=== PATIENT | male | born 1935 | race Caucasian/White ===

== ENCOUNTER → 2016-07-31 | Outpatient (CLI) | payer MEDICARE ==
[2016-07-31 13:58] LABS: BASO % 0.3 % (0.0-1.0); EOS # 0.1 K/mm3 (0.0-0.50); EOS % 1.7 % (0.0-3.0); LARGE UNSTAINED CELL # 0.2 K/mm3 (0.0-0.4); LARGE UNSTAINED CELL % 2.5 % (0.0-4.0); LYMPH # 1.4 K/mm3 (1.5-4.5); LYMPH % 21.2 % (24.0-44.0); MEAN CORPUSCULAR HEMOGLOBIN 31.6 pg (27.0-33.0); MEAN CORPUSCULAR HGB CONC 33.4 g/dl (32.0-36.5); MEAN CORPUSCULAR VOLUME 94.6 fl (80.0-96.0); MONO # 0.4 K/mm3 (0.0-0.8); MONO % 5.4 % (0.0-5.0); NEUTROPHILS # 4.7 K/mm3 (1.8-7.7); PLATELET COUNT, AUTOMATED 228 k/mm3 (150-450); RED CELL DISTRIBUTION WIDTH 12.5 % (11.5-14.5); WHITE BLOOD COUNT 6.7 K/mm3 (4.0-10.0)
[2016-07-31 14:14] LABS: ALT/SGPT 23 U/L (12-78); CREATININE FOR GFR 0.99 MG/DL (0.70-1.30); GLOMERULAR FILTRATION RATE > 60.0 (>35)
[2016-07-31 14:58] LABS: ERYTHROCYTE SEDIMENTATION RATE 35 mm/hr (0-20)
== END ==
LOC: M SMT 08:23
PROVIDERS: ATTEND Internal Medicine Rheumatology
DX: M35.9 Systemic involvement of connective tissue, unspecified (principal); Z79.899 Other long term (current) drug therapy; E55.9 Vitamin D deficiency, unspecified

== ENCOUNTER → 2016-10-31 | Outpatient (CLI) | payer MEDICARE ==
[~2016-10-31] MED LIST: LIDOCAINE 1% MDV 20ML VIAL As Ordered ONE; TRIAMCINOLONE ACETONIDE SUSP 40 MG/ML VIAL (J3301) As Ordered ONE
--- NOTE | 2016-10-31 16:56 | REP ---
ULTRASOUND GUIDED LEFT TROCHANTERIC BURSA INJECTION: The procedure was performed under the direct supervision of Dr. Mccray. The benefit and risks including but not limited to pain, infection, bleeding, and anaphylaxis were explained to the patient and informed consent was obtained. The left trochanteric bursa was localized using ultrasound guidance. The skin was prepped and draped in a sterile fashion. 1% Lidocaine was used as a local anesthetic. Using ultrasound guidance a 22-gauge spinal needle was inserted and then advanced into the bursa. 4 mL of a solution containing 2 mL of 1% lidocaine and 2 mL of Kenalog 40 mg was injected. The needle was then removed. The patient tolerated the procedure well and there were no immediate complications. Reviewed by WILLIAN Cazares 10/31/2016 05:11 PEdited and Signed by Juan Mccray MD 11/01/2016 12:56 P
== END ==
LOC: M RADPRO 11:52
PROVIDERS: ATTEND Physical Medicine & Rehabilitation
DX: M70.62 Trochanteric bursitis, left hip (principal); Z88.2 Allergy status to sulfonamides; Z88.8 Allergy status to other drugs, medicaments and biological substances
CPT/HCPCS: 20610; J3301

== ENCOUNTER → 2016-11-09 | Outpatient (REF) | payer MEDICARE ==
[2016-11-09 18:27] LABS: ANION GAP 7 MEQ/L (8-16); BLOOD UREA NITROGEN 30 MG/DL (7-18); CARBON DIOXIDE LEVEL 31 MEQ/L (21-32); CHLORIDE LEVEL 102 MEQ/L (98-107); CREATININE FOR GFR 0.94 MG/DL (0.70-1.30); GLOMERULAR FILTRATION RATE > 60.0 (>35); GLUCOSE, FASTING 103 MG/DL (83-110); POTASSIUM SERUM 4.1 MEQ/L (3.5-5.1); SODIUM LEVEL 140 MEQ/L (136-145)
[2016-11-09 18:29] LABS: BASO % 0.2 % (0.0-1.0); EOS # 0.1 K/mm3 (0.0-0.50); EOS % 0.7 % (0.0-3.0); LARGE UNSTAINED CELL # 0.2 K/mm3 (0.0-0.4); LARGE UNSTAINED CELL % 1.6 % (0.0-4.0); LYMPH # 2.1 K/mm3 (1.5-4.5); LYMPH % 19.6 % (24.0-44.0); MEAN CORPUSCULAR HEMOGLOBIN 30.3 pg (27.0-33.0); MEAN CORPUSCULAR HGB CONC 32.2 g/dl (32.0-36.5); MEAN CORPUSCULAR VOLUME 94.1 fl (80.0-96.0); MONO # 0.6 K/mm3 (0.0-0.8); MONO % 5.7 % (0.0-5.0); NEUTROPHILS # 7.1 K/mm3 (1.8-7.7); NEUTROPHILS % 72.1 % (36.0-66.0); PLATELET COUNT, AUTOMATED 230 k/mm3 (150-450); RED CELL DISTRIBUTION WIDTH 13.2 % (11.5-14.5); WHITE BLOOD COUNT 9.8 K/mm3 (4.0-10.0)
== END ==
LOC: M SFHCPLAZ 15:36
PROVIDERS: ATTEND Family Medicine
DX: R23.3 Spontaneous ecchymoses (principal); R60.0 Localized edema
CPT/HCPCS: 36415; 80048; 85025; G0463

== ENCOUNTER → 2016-12-06 | Outpatient (REF) | payer MEDICARE | LOC: M SFHCPLAZ 08:25 | PROVIDERS: ATTEND Dermatology | DX: D23.5 Other benign neoplasm of skin of trunk (principal); C44.622 Squamous cell carcinoma of skin of right upper limb, including shoulder ==

== ENCOUNTER → 2016-12-13 | Outpatient (CLI) | payer MEDICARE ==
[2016-12-13 19:54] LABS: BASO % 0.5 % (0.0-1.0); EOS # 0.1 K/mm3 (0.0-0.50); EOS % 0.9 % (0.0-3.0); LARGE UNSTAINED CELL # 0.1 K/mm3 (0.0-0.4); LARGE UNSTAINED CELL % 1.5 % (0.0-4.0); LYMPH # 1.5 K/mm3 (1.5-4.5); LYMPH % 19.8 % (24.0-44.0); MEAN CORPUSCULAR HEMOGLOBIN 32.2 pg (27.0-33.0); MEAN CORPUSCULAR HGB CONC 34.2 g/dl (32.0-36.5); MEAN CORPUSCULAR VOLUME 94.1 fl (80.0-96.0); MONO # 0.4 K/mm3 (0.0-0.8); MONO % 5.3 % (0.0-5.0); NEUTROPHILS # 5.4 K/mm3 (1.8-7.7); PLATELET COUNT, AUTOMATED 267 k/mm3 (150-450); RED CELL DISTRIBUTION WIDTH 13.3 % (11.5-14.5); WHITE BLOOD COUNT 7.5 K/mm3 (4.0-10.0)
[2016-12-13 20:20] LABS: ALBUMIN 3.6 GM/DL (3.2-5.2); ALBUMIN/GLOBULIN RATIO 1.09 (1.00-1.93); ALKALINE PHOSPHATASE 83 U/L (45-117); ALT/SGPT 23 U/L (12-78); ANION GAP 5 MEQ/L (8-16); AST/SGOT 19 U/L (15-37); BILIRUBIN,TOTAL 0.4 MG/DL (0.2-1.0); BLOOD UREA NITROGEN 26 MG/DL (7-18); CALCIUM LEVEL 9.1 MG/DL (8.8-10.2); CARBON DIOXIDE LEVEL 33 MEQ/L (21-32); CHLORIDE LEVEL 104 MEQ/L (98-107); CREATININE FOR GFR 1.16 MG/DL (0.70-1.30); GLOMERULAR FILTRATION RATE > 60.0 (>35); GLUCOSE, FASTING 108 MG/DL (83-110); POTASSIUM SERUM 4.7 MEQ/L (3.5-5.1); SODIUM LEVEL 142 MEQ/L (136-145); TOTAL PROTEIN 6.9 GM/DL (6.4-8.2)
[2016-12-13 21:15] LABS: ERYTHROCYTE SEDIMENTATION RATE 41 mm/hr (0-20)
== END ==
LOC: M SMT 13:17
PROVIDERS: ATTEND Internal Medicine Rheumatology
DX: M35.9 Systemic involvement of connective tissue, unspecified (principal); G72.9 Myopathy, unspecified

== ENCOUNTER → 2017-01-23 | Outpatient (REF) | payer MEDICARE ==
[~2017-01-23] MED LIST changes: +CELE1CAP9 PO; +CHLO50TA PO; +FINA5TAB2 PO; +HYDR200T3 PO; -LIDOCAINE 1% MDV 20ML VIAL As Ordered ONE; +METF500T13 PO; +MONT10TA2 PO; +POTA540T PO; -TRIAMCINOLONE ACETONIDE SUSP 40 MG/ML VIAL (J3301) As Ordered ONE
[2017-01-23 11:50] LABS: ANION GAP 9 MEQ/L (8-16); BLOOD UREA NITROGEN 28 MG/DL (7-18); CALCIUM LEVEL 9.3 MG/DL (8.8-10.2); CARBON DIOXIDE LEVEL 29 MEQ/L (21-32); CHLORIDE LEVEL 102 MEQ/L (98-107); CREATININE FOR GFR 0.95 MG/DL (0.70-1.30); GLOMERULAR FILTRATION RATE > 60.0 (>35); GLUCOSE, FASTING 127 MG/DL (83-110); POTASSIUM SERUM 3.4 MEQ/L (3.5-5.1); SODIUM LEVEL 140 MEQ/L (136-145)
[2017-01-23 12:40] LABS: VITAMIN B12 LEVEL > 2000 PG/ML (247-911)
== END ==
LOC: M SFHCPLAZ 09:29
PROVIDERS: ATTEND Family Medicine
DX: R26.89 Other abnormalities of gait and mobility (principal); R60.0 Localized edema; B37.2 Candidiasis of skin and nail; Z79.899 Other long term (current) drug therapy; I10 Essential (primary) hypertension; Z86.69 Personal history of other diseases of the nervous system and sense organs; Z87.430 Personal history of prostatic dysplasia
CPT/HCPCS: 36415; 80048; 82306; 82607; 83036; 83880; G0463

== ENCOUNTER 2017-03-05 07:33 | Emergency (ER) | payer MEDICARE ==
[~2017-03-05] VITALS: Ht 188 cm; Wt 124.2 kg
[2017-03-05] MEDS ORDERED: METF500T13 PO (07:47)
[2017-03-05] MEDS ORDERED: POTA540T PO (07:47)
[2017-03-05] MEDS ORDERED: HYDR200T3 PO (07:47)
[2017-03-05] MEDS ORDERED: FINA5TAB2 PO (07:47)
[2017-03-05] MEDS ORDERED: MONT10TA2 PO (07:47)
[2017-03-05] MEDS ORDERED: CELE1CAP9 PO (07:47)
[2017-03-05] MEDS ORDERED: CHLO50TA PO (07:47)
[2017-03-05 08:43] LABS: BASO % 0.5 % (0.0-1.0); EOS # 0.1 K/mm3 (0.0-0.50); EOS % 1.7 % (0.0-3.0); LARGE UNSTAINED CELL # 0.1 K/mm3 (0.0-0.4); LARGE UNSTAINED CELL % 1.5 % (0.0-4.0); MEAN CORPUSCULAR HEMOGLOBIN 31.2 pg (27.0-33.0); MEAN CORPUSCULAR VOLUME 94.5 fl (80.0-96.0); MONO # 0.4 K/mm3 (0.0-0.8); MONO % 5.6 % (0.0-5.0); NEUTROPHILS # 4.6 K/mm3 (1.8-7.7); NEUTROPHILS % 64.7 % (36.0-66.0); PLATELET COUNT, AUTOMATED 243 k/mm3 (150-450); RED CELL DISTRIBUTION WIDTH 12.9 % (11.5-14.5); WHITE BLOOD COUNT 7.1 K/mm3 (4.0-10.0)
[2017-03-05] MEDS ORDERED: MORPHINE 4 MG/ML 1ML SYRINGE IV PRN (08:45)
[2017-03-05] MEDS ORDERED: ONDANSETRON 4MG/2ML VIAL (J2405) IV ONE ×2 (08:45→11:45)
[2017-03-05] MEDS: NS 1,000 ML IV SCH ×2 (08:49→18:32)
[2017-03-05 08:51] LABS: INR 0.89
[2017-03-05 08:52] LABS: ALBUMIN 3.5 GM/DL (3.2-5.2); ALBUMIN/GLOBULIN RATIO 0.85 (1.00-1.93); ALKALINE PHOSPHATASE 88 U/L (45-117); ALT/SGPT 21 U/L (12-78); ANION GAP 8 MEQ/L (8-16); AST/SGOT 16 U/L (15-37); BILIRUBIN,DIRECT < 0.1 MG/DL (0.0-0.2); BILIRUBIN,TOTAL 0.4 MG/DL (0.2-1.0); BLOOD UREA NITROGEN 29 MG/DL (7-18); CALCIUM LEVEL 9.2 MG/DL (8.8-10.2); CARBON DIOXIDE LEVEL 28 MEQ/L (21-32); CHLORIDE LEVEL 103 MEQ/L (98-107); CREATININE FOR GFR 0.93 MG/DL (0.70-1.30); GLOMERULAR FILTRATION RATE > 60.0 (>35); GLUCOSE, FASTING 137 MG/DL (83-110); POTASSIUM SERUM 3.8 MEQ/L (3.5-5.1); SODIUM LEVEL 139 MEQ/L (136-145); TOTAL PROTEIN 7.6 GM/DL (6.4-8.2)
--- NOTE | 2017-03-05 10:11 | REP ---
ABDOMINAL SERIES: Supine erect views of the abdomen demonstrate no evidence of free intraperitoneal air and no compelling evidence for small bowel obstruction. No significantly dilated small bowel loops are seen. Multiple metallic clips are seen in the pelvis. Vascular calcifications are seen. There are degenerative changes of the spine. An accompanying view of the chest demonstrates no acute infiltrate. There is calcification of the thoracic aorta. IMPRESSION: No free air or obstruction. No infiltrate seen in either lung. Unreviewed
[2017-03-05] MEDS ORDERED: GASTROGRAFIN SOLUTION 30ML PO ONE (11:05)
[2017-03-05] MEDS ORDERED: GASTROGRAFIN SOLUTION 30ML (Q9963) PO ONE (11:35)
[2017-03-05] MEDS ORDERED: ISOVUE-370 76% 100ML VIAL (Q9967) As Ordered ONE (12:15)
[2017-03-05] MEDS ORDERED: LORazepam 2 MG/ML VIAL (J2060) IV STA ×2 (14:14→16:47)
--- NOTE | 2017-03-05 16:08 | ECGEPIP ---
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
--- NOTE | 2017-03-05 16:23 | REP ---
CT ABDOMEN AND PELVIS WITH ORAL AND IV CONTRAST: TECHNIQUE: Axial contrast enhanced images from the lung bases to the pubic symphysis using 100 mL Isovue 370 intravenous contrast material with multiplanar reformations. No comparison studies. Visualized lung bases show bibasilar fibro atelectatic changes. There is a calcified granuloma in the left lower lobe. The liver and gallbladder appear unremarkable. Spleen and adrenals are unremarkable. In the body of the pancreas there is a focal area of enhancement approximately 2 cm in diameter. The pancreatic duct more distally in the pancreatic tail is moderately dilated diffusely. Findings I suspect represent a mass in the body of the pancreas with subsequent moderate dilatation of more peripheral pancreatic duct. There is no hydronephrosis or renal mass identified. There are mild to moderate atherosclerotic calcifications of the abdominal aorta without aneurysm. There is no adenopathy. There is no free air or free fluid. There is no bowel wall thickening. There is no evidence of appendicitis. Multiple sigmoid diverticula are present without acute diverticulitis. Abdominal wall mesh is seen. No pelvic mass is seen. Urinary bladder appears unremarkable. There are degenerative changes of the spine. There is fluid seen along the greater trochanter of the proximal left femur suggesting left sided greater trochanteric bursitis. IMPRESSION: No evidence of appendicitis or diverticulitis. No free air or free fluid. I suspect a 2 cm enhancing mass in the body of the pancreas with subsequent moderate dilatation of the more peripheral pancreatic duct in the tail of the pancreas. Signed by Juan Mccray MD 03/05/2017 05:10 P
--- NOTE | 2017-03-05 21:30 | REPUSA ---
HISTORY: Pancreatic mass. Epigastric pain. TECHNIQUE: MR abdomen without and with gadolinium. 20 mL ProHance administered IV. COMPARISON: CT abdomen report dated March 05, 2017. MR ABDOMEN WITHOUT AND WITH CONTRAST: Liver: No intrahepatic ductal dilation or masses. Gallbladder: Nondistended, and without visible stones. Pancreas: Again seen is moderate dilation of the pancreatic duct in the pancreatic tail measuring up to 6 mm diameter. However, a discrete lesion is not seen within the pancreatic parenchyma. Spleen: Normal size. Adrenals: Normal size, without masses. Right kidney: No hydronephrosis or masses. Left kidney: No hydronephrosis or masses. 11 mm upper pole cyst. Aorta: Normal caliber. Peritoneum: No free fluid. IMPRESSION: Dilation of the pancreatic duct within the pancreatic tail, without discrete pancreatic m ass. Obstruction may be caused by a nonenhancing pancreatic cyst or small intraductal lesion or stone , beneath the resolution of MRI.
[2017-03-05 21:56] VITALS: BP 116/71
--- NOTE | 2017-03-06 09:00 | ED PDOC ---
Post-Departure Follow-Up radiology rpeort faxed to Domonique Ramos MD Mar 06, 2017 08:59
== END 2017-03-05 22:16 | disposition home or self-care (01) ==
LOC: M ED 07:33
DX: R10.9 Unspecified abdominal pain (principal); I10 Essential (primary) hypertension; N40.0 Benign prostatic hyperplasia without lower urinary tract symptoms
CPT/HCPCS: 74022; 74177; 74183; 80048; 80076; 82550; 82553; 83605; 83690; 84484; 85025; 85610; 85730; 93005; 93041; 96374; 96375; 96376; 99285; A9576; J2060; J2405; Q9963; Q9967

== ENCOUNTER → 2017-03-15 | Outpatient (REF) | payer MEDICARE ==
[2017-03-15 13:33] LABS: ANION GAP 12 MEQ/L (8-16); BLOOD UREA NITROGEN 32 MG/DL (7-18); CALCIUM LEVEL 9.3 MG/DL (8.8-10.2); CARBON DIOXIDE LEVEL 26 MEQ/L (21-32); CHLORIDE LEVEL 104 MEQ/L (98-107); CREATININE FOR GFR 0.98 MG/DL (0.70-1.30); GLOMERULAR FILTRATION RATE > 60.0 (>35); GLUCOSE, FASTING 107 MG/DL (83-110); POTASSIUM SERUM 3.7 MEQ/L (3.5-5.1); SODIUM LEVEL 142 MEQ/L (136-145)
== END ==
LOC: M SFHCPLAZ 11:36
PROVIDERS: ATTEND Nurse Practitioner Family
DX: R60.0 Localized edema (principal)

== ENCOUNTER → 2017-04-12 | Outpatient (CLI) | payer MEDICARE ==
--- NOTE | 2017-04-12 10:33 | REP ---
MRI LEFT HIP: TECHNIQUE: Coronal T1, STIR through the pelvis, T2 fat sat, left hip all three planes, axial oblique proton density fat sat left hip. COMPARISON: 02/22/2016 [facility]. The visualized osseous structures demonstrate normal marrow signal. There is no bone marrow edema or occult fracture. There is no evidence of avascular necrosis. Mild arthritic changes are seen at the hip joints bilaterally. There is no definite tear of the left hip labrum. There is no paralabral cyst. No joint effusion is seen. Moderate fluid is seen along the greater trochanter of the proximal left femur compatible with a moderate degree of left greater trochanteric bursitis. This has mildly increased since the prior study. IMPRESSION: Mild worsening of left greater trochanteric bursitis when compared to the prior study. Signed by Juan Mccray MD 04/12/2017 02:22 P
== END ==
LOC: M PLARAD 07:40
PROVIDERS: ATTEND Physical Medicine & Rehabilitation
DX: M16.12 Unilateral primary osteoarthritis, left hip (principal)

== ENCOUNTER → 2017-05-01 | Outpatient (CLI) | payer MEDICARE ==
[~2017-05-01] MED LIST changes: +LIDOCAINE 1% MDV 20ML VIAL As Ordered ONE; +TRIAMCINOLONE ACETONIDE SUSP 40 MG/ML VIAL (J3301) As Ordered ONE
--- NOTE | 2017-05-01 16:35 | REP ---
ULTRASOUND GUIDED LEFT TROCHANTERIC BURSA INJECTION: The procedure was performed under the direct supervision of Dr. Bruno. The risks and benefits of the procedure were explained to the patient and informed consent was obtained. The left trochanteric bursa was localized using ultrasound guidance. The skin was prepped and draped in a sterile fashion. 1% lidocaine was used as a local anesthetic. Using ultrasound guidance an 18-gauge needle was inserted and advanced into the bursa. Four mL of a solution containing 2 mL of 1% lidocaine and 2 mL of Kenalog 40 mg was injected. The needle was then removed. The patient tolerated the procedure well and there were no immediate complications. After the appropriate amount of monitored convalescence the patient was discharged from the department. Reviewed by WILLIAN Cazares 05/01/2017 04:41 PEdited and Signed by Papo Bruno MD 05/01/2017 05:00 P
== END ==
LOC: M RADPRO 10:21
PROVIDERS: ATTEND Physical Medicine & Rehabilitation
DX: M70.62 Trochanteric bursitis, left hip (principal); I10 Essential (primary) hypertension; K21.9 Gastro-esophageal reflux disease without esophagitis; G56.00 Carpal tunnel syndrome, unspecified upper limb; Z85.828 Personal history of other malignant neoplasm of skin; Z79.84 Long term (current) use of oral hypoglycemic drugs; Z79.899 Other long term (current) drug therapy
CPT/HCPCS: 20610; J3301

== ENCOUNTER → 2017-05-30 | Outpatient (CLI) | payer MEDICARE ==
[~2017-05-30] MED LIST changes: -LIDOCAINE 1% MDV 20ML VIAL As Ordered ONE; -TRIAMCINOLONE ACETONIDE SUSP 40 MG/ML VIAL (J3301) As Ordered ONE
[2017-05-30 13:29] LABS: BASO % 0.4 % (0.0-1.0); EOS # 0.1 10^3/uL (0.0-0.50); EOS % 1.2 % (0.0-3.0); IMMATURE GRANULOCYTE % 0.3 % (0-0); LYMPH # 1.6 10^3/uL (1.5-4.5); LYMPH % 21.8 % (24.0-44.0); MEAN CORPUSCULAR HEMOGLOBIN 30.4 pg (27.0-33.0); MEAN CORPUSCULAR HGB CONC 32.6 g/dl (32.0-36.5); MEAN CORPUSCULAR VOLUME 93.1 fl (80.0-96.0); MONO # 0.5 10^3/uL (0.0-0.8); MONO % 7.4 % (0.0-5.0); NEUTROPHILS % 68.9 % (36.0-66.0); PLATELET COUNT, AUTOMATED 260 10^3/uL (150-450); RED CELL DISTRIBUTION WIDTH 13.2 % (11.5-14.5); WHITE BLOOD COUNT 7.3 10^3/uL (4.0-10.0)
[2017-05-30 14:02] LABS: ALBUMIN 3.5 GM/DL (3.2-5.2); ALKALINE PHOSPHATASE 101 U/L (45-117); ALT/SGPT 24 U/L (12-78); ANION GAP 7 MEQ/L (8-16); AST/SGOT 13 U/L (7-37); BILIRUBIN,TOTAL 0.3 MG/DL (0.2-1.0); BLOOD UREA NITROGEN 16 MG/DL (7-18); CALCIUM LEVEL 9.3 MG/DL (8.8-10.2); CARBON DIOXIDE LEVEL 32 MEQ/L (21-32); CHLORIDE LEVEL 101 MEQ/L (98-107); GLOMERULAR FILTRATION RATE > 60.0 (>35); GLUCOSE, FASTING 95 MG/DL (83-110); IMMUNOGLOBULIN G 970 MG/DL (681-1648); POTASSIUM SERUM 3.9 MEQ/L (3.5-5.1); SODIUM LEVEL 140 MEQ/L (136-145)
[2017-05-30 14:32] LABS: ERYTHROCYTE SEDIMENTATION RATE 43 mm/hr (0-20)
== END ==
LOC: M SMT 09:35
PROVIDERS: ATTEND Internal Medicine Rheumatology
DX: M35.9 Systemic involvement of connective tissue, unspecified (principal); E55.9 Vitamin D deficiency, unspecified; Z79.899 Other long term (current) drug therapy

== ENCOUNTER → 2017-07-24 | Outpatient (REF) | payer MEDICARE | LOC: M LAB REF 11:54 | DX: L82.1 Other seborrheic keratosis (principal) | CPT/HCPCS: 88305 ==

== ENCOUNTER → 2017-08-07 | Outpatient (REF) | payer MEDICARE ==
[2017-08-07 12:20] LABS: PROLACTIN 6.9 NG/ML (2.1-17.7)
[2017-08-07 12:20] LABS: TESTOSTERONE 426 NG/DL (241-827)
[2017-08-07 12:25] LABS: PSA SCREENING 0.94 NG/ML (< 4.0)
[2017-08-10 00:07] LABS: ESTROGENS TOTAL 164 pg/mL (40-115)
== END ==
LOC: M SFHCPLAZ 09:56
DX: N62 Hypertrophy of breast (principal); R39.198 Other difficulties with micturition; M75.41 Impingement syndrome of right shoulder; G56.01 Carpal tunnel syndrome, right upper limb; M19.90 Unspecified osteoarthritis, unspecified site
CPT/HCPCS: 84146

== ENCOUNTER → 2017-09-23 | Outpatient (CLI) | payer MEDICARE ==
[2017-09-24 09:42] LABS: ALPHA FETOPROTEIN TUMOR QUANT 3.8 NG/ML (<8.1)
[2017-09-24 10:14] LABS: HCG SERUM TUMOR MARKER QUANT < 1 mIU/mL (0-3)
== END ==
LOC: M SMT 11:05
DX: N62 Hypertrophy of breast (principal)
CPT/HCPCS: 84702

== ENCOUNTER → 2017-10-16 | Outpatient (REF) | payer MEDICARE ==
[2017-10-16 12:26] LABS: NT-PRO BNP 428 PG/ML (<450)
== END ==
LOC: M SFHCPLAZ 09:42
DX: I95.1 Orthostatic hypotension (principal)
CPT/HCPCS: 36415

== ENCOUNTER → 2017-10-19 | Outpatient (CLI) | payer MEDICARE ==
[2017-10-19 08:29] LABS: APPEARANCE, URINE MANUAL CLEAR (CLEAR); COLOR, URINE MANUAL YELLOW (YELLOW)
[2017-10-19 08:30] LABS: BILIRUBIN, URINE MANUAL NEGATIVE (NEGATIVE); BLOOD URINE MANUAL POSITIVE (NEGATIVE); GLUCOSE, URINE (UA) MANUAL NEGATIVE (NEGATIVE); KETONE, URINE MANUAL NEGATIVE (NEGATIVE); LEUKOCYTE ESTERASE, URINE MAN NEGATIVE (NEGATIVE); MICROSCOPIC INDICATED? MAN YES (NO); NITRITE, URINE MANUAL NEGATIVE (NEGATIVE); PROTEIN, URINE MANUAL NEGATIVE (NEGATIVE); SPECIFIC GRAVITY,URINE MANUAL 1.015 (1.002-1.035); UROBILINOGEN, URINE MANUAL NORMAL (NORMAL)
[2017-10-19 08:37] LABS: BACTERIA, URINE NONE SEEN; HYALINE CAST, URINE NONE SEEN /lpf (0-1); MICROSCOPIC EXAM PERFORMED; SQUAMOUS EPITHELIAL CELL URINE SMALL AMOUNT /hpf (SMALL AMT); WBC, URINE 0-1 /hpf (0-3)
[2017-10-19 09:23] LABS: CHOLESTEROL LEVEL 165 MG/DL (<200); HDL CHOLESTEROL 73 MG/DL (>40); LDL CHOLESTEROL 66.2 MG/DL (<100); NON-HDL-C 92 MG/DL; TRIGLYCERIDES LEVEL 129 MG/DL (<150)
== END ==
LOC: M LAB 08:09
DX: I48.2 Chronic atrial fibrillation (principal); R35.0 Frequency of micturition; R94.31 Abnormal electrocardiogram [ECG] [EKG]
CPT/HCPCS: 84443

== ENCOUNTER 2017-10-28 10:07 | Day surgery (SDC) | payer MEDICARE ==
[2017-10-28] MEDS: ISOVUE-300 61% 50ML VIAL (Q9967) As Ordered (09:24)
[2017-10-28] MEDS: AMIODARONE HCL 360 MG/200 ML PREMIXED BAG (NEXTERONE) As Ordered (09:24)
[2017-10-28 10:58] LABS: BEDSIDE GLUCOSE 112 MG/DL (83-110)
[2017-10-28] MEDS: LR 1,000 ML IV ×2 (11:29→16:32)
[2017-10-28] MEDS ORDERED: PROPOFOL 200 MG/20 ML VIAL As Ordered ×4 (11:36→13:09)
[2017-10-28] MEDS: LIDOCAINE 1% SDV INJ 30 ML VIAL As Ordered (12:40)
[2017-10-28] MEDS: BACITRACIN PWD 50,000 UNITS VIAL As Ordered (14:01)
[2017-10-28 14:28] LABS: BEDSIDE GLUCOSE 98 MG/DL (83-110)
[2017-10-28] MEDS ORDERED: ACETAMINOPHEN TAB 650MG DOSE (2X325MG) PO (14:30)
[2017-10-28] MEDS: LISINOPRIL 5 MG TAB PO (16:30)
[2017-10-28] MEDS: TAMSULOSIN 0.4 MG CAP PO (16:30)
[2017-10-28] MEDS: CEFAZOLIN SOD 1 GM in APPROPRIATE DILUENT 1 EA IV (20:41)
[2017-10-29] MEDS ORDERED: SLF 3 ML SYR IV (02:15)
[2017-10-29] MEDS: CEFAZOLIN SOD 1 GM in APPROPRIATE DILUENT 1 EA IV ×2 (04:10→11:54)
[2017-10-29 05:25] LABS: HEMATOCRIT 38.8 % (42.0-52.0); HEMOGLOBIN 12.9 g/dl (13.5-17.5); MEAN CORPUSCULAR HEMOGLOBIN 30.1 pg (27.0-33.0); MEAN CORPUSCULAR HGB CONC 33.2 g/dl (32.0-36.5); MEAN CORPUSCULAR VOLUME 90.4 fl (80.0-96.0); PLATELET COUNT, AUTOMATED 169 10^3/uL (150-450); RED BLOOD COUNT 4.29 10^6/uL (4.30-6.10); RED CELL DISTRIBUTION WIDTH 13.2 % (11.5-14.5)
[2017-10-29] MEDS: SLF 3 ML SYR IV ×2 (05:36→11:57)
[2017-10-29 05:42] LABS: ALBUMIN 3.1 GM/DL (3.2-5.2); ANION GAP 6 MEQ/L (8-16); BLOOD UREA NITROGEN 26 MG/DL (7-18); CALCIUM LEVEL 8.9 MG/DL (8.8-10.2); CARBON DIOXIDE LEVEL 26 MEQ/L (21-32); CHLORIDE LEVEL 108 MEQ/L (98-107); CREATININE FOR GFR 0.98 MG/DL (0.70-1.30); GLOMERULAR FILTRATION RATE > 60.0 (>35); GLUCOSE, FASTING 111 MG/DL (70-100); PHOSPHORUS LEVEL 3.2 MG/DL (2.5-4.9); POTASSIUM SERUM 4.1 MEQ/L (3.5-5.1); SODIUM LEVEL 140 MEQ/L (136-145)
[2017-10-29] MEDS: CHLORTHALIDONE 12.5MG PER 1/2 TABLET PO (09:24)
[2017-10-29] MEDS: LISINOPRIL 5 MG TAB PO (09:24)
[2017-10-29] MEDS: TAMSULOSIN 0.4 MG CAP PO (09:25)
[2017-10-29] MEDS: AMIODARONE 200 MG TAB (PACERONE) PO (09:25)
[2017-10-29] MEDS: metFORMIN (GLUCOPHAGE) 500 MG TAB PO (09:26)
[2017-10-29] MEDS: NASACORT (09:26)
== END 2017-10-29 13:18 | disposition home or self-care (01) ==
LOC: M SDC 10:07 → M PCU 15:04
DX: I44.1 Atrioventricular block, second degree (principal); I45.2 Bifascicular block; I48.92 Unspecified atrial flutter; I45.10 Unspecified right bundle-branch block; I11.9 Hypertensive heart disease without heart failure; E11.9 Type 2 diabetes mellitus without complications; Z79.02 Long term (current) use of antithrombotics/antiplatelets; Z79.899 Other long term (current) drug therapy; Z88.8 Allergy status to other drugs, medicaments and biological substances; Z88.2 Allergy status to sulfonamides
CPT/HCPCS: 33208

== ENCOUNTER → 2017-12-26 | Outpatient (REF) | payer MEDICARE | LOC: M SFHCPLAZ 08:59 | DX: Z13.1 Encounter for screening for diabetes mellitus (principal); M54.9 Dorsalgia, unspecified; Z13.220 Encounter for screening for lipoid disorders; Z53.8 Procedure and treatment not carried out for other reasons ==

== ENCOUNTER → 2017-12-26 | Outpatient (CLI) | payer MEDICARE ==
[2017-12-26 14:15] LABS: CHOLESTEROL LEVEL 159 MG/DL (<200); CHOLESTEROL RISK RATIO 2.409 (<5); HDL CHOLESTEROL 66 MG/DL (>40); LDL CHOLESTEROL 73.2 MG/DL (<100); NON-HDL-C 93 MG/DL; TRIGLYCERIDES LEVEL 99 MG/DL (<150)
[2017-12-26 14:18] LABS: ESTIMATED AVERAGE GLUCOSE 140 MG/DL (60-110); HEMOGLOBIN A1c 6.5 %
[2018-01-02 00:06] LABS: HLA-B27 Negative (.)
== END ==
LOC: M SMT 10:01
DX: M54.9 Dorsalgia, unspecified (principal); Z13.1 Encounter for screening for diabetes mellitus; Z13.220 Encounter for screening for lipoid disorders; I45.2 Bifascicular block; R26.89 Other abnormalities of gait and mobility; G56.01 Carpal tunnel syndrome, right upper limb; K21.9 Gastro-esophageal reflux disease without esophagitis; M19.90 Unspecified osteoarthritis, unspecified site; J30.9 Allergic rhinitis, unspecified; H91.91 Unspecified hearing loss, right ear; R26.81 Unsteadiness on feet; I48.92 Unspecified atrial flutter; M48.061 Spinal stenosis, lumbar region without neurogenic claudication; Z79.84 Long term (current) use of oral hypoglycemic drugs; Z79.899 Other long term (current) drug therapy; Z86.008 Personal history of in-situ neoplasm of other site
CPT/HCPCS: 83036

== ENCOUNTER → 2018-03-28 | Outpatient (REF) | payer MEDICARE ==
[2018-03-28 11:37] LABS: BASO % 0.2 % (0.0-1.0); EOS % 0.7 % (0.0-3.0); HEMATOCRIT 42.8 % (42.0-52.0); HEMOGLOBIN 13.6 g/dl (13.5-17.5); IMMATURE GRANULOCYTE % 0.5 % (0-3.0); LYMPH # 1.4 10^3/uL (1.5-4.5); LYMPH % 23.4 % (24.0-44.0); MEAN CORPUSCULAR HEMOGLOBIN 29.5 pg (27.0-33.0); MEAN CORPUSCULAR HGB CONC 31.8 g/dl (32.0-36.5); MEAN CORPUSCULAR VOLUME 92.8 fl (80.0-96.0); MONO # 0.6 10^3/uL (0.0-0.8); MONO % 10.1 % (0.0-5.0); NEUTROPHILS # 3.9 10^3/uL (1.8-7.7); NEUTROPHILS % 65.1 % (36.0-66.0); PLATELET COUNT, AUTOMATED 226 10^3/uL (150-450); RED BLOOD COUNT 4.61 10^6/uL (4.30-6.10); RED CELL DISTRIBUTION WIDTH 13.9 % (11.5-14.5)
[2018-03-28 11:48] LABS: ALBUMIN 3.6 GM/DL (3.2-5.2); ALBUMIN/GLOBULIN RATIO 0.95 (1.00-1.93); ALKALINE PHOSPHATASE 105 U/L (45-117); ALT/SGPT 18 U/L (12-78); ANION GAP 10 MEQ/L (8-16); AST/SGOT 11 U/L (7-37); BILIRUBIN,TOTAL 0.3 MG/DL (0.2-1.0); BLOOD UREA NITROGEN 21 MG/DL (7-18); C REACTIVE PROTEIN QUANTITATIV 1.64 MG/DL (0.00-0.30); CALCIUM LEVEL 8.7 MG/DL (8.8-10.2); CARBON DIOXIDE LEVEL 25 MEQ/L (21-32); CHLORIDE LEVEL 107 MEQ/L (98-107); CREATININE FOR GFR 0.95 MG/DL (0.70-1.30); GLOMERULAR FILTRATION RATE > 60.0 (>35); GLUCOSE, FASTING 101 MG/DL (70-100); POTASSIUM SERUM 4.3 MEQ/L (3.5-5.1); RHEUMATOID FACTOR QUANT < 10.0 IU/ML (<15.0); SODIUM LEVEL 142 MEQ/L (136-145); TOTAL PROTEIN 7.4 GM/DL (6.4-8.2)
[2018-03-28 12:08] LABS: ERYTHROCYTE SEDIMENTATION RATE 42 mm/hr (0-20)
[2018-04-01 00:07] LABS: CYCLIC CITRULLINATED PEPTIDE 4 units (0-19)
[2018-04-01 00:07] LABS: ANA (HEP2) Negative (.); ANTI DOUBLE STRAND-DNA AB <1 IU/mL (0-9); SSA SJOGRENS A <0.2 AI (0.0-0.9); SSB SJOGRENS B <0.2 AI (0.0-0.9)
== END ==
LOC: M SFHCLERA 09:15
DX: M19.90 Unspecified osteoarthritis, unspecified site (principal); M25.512 Pain in left shoulder; M54.5 Low back pain
CPT/HCPCS: 80053

== ENCOUNTER → 2018-03-28 | Outpatient (CLI) | payer MEDICARE ==
[2018-03-28 14:23] LABS: BLOOD UREA NITROGEN 22 MG/DL (7-18)
[2018-03-28 14:23] LABS: CREATININE FOR GFR 1.18 MG/DL (0.70-1.30); GLOMERULAR FILTRATION RATE > 60.0 (>35)
== END ==
LOC: M LAB 12:51
DX: H90.3 Sensorineural hearing loss, bilateral (principal); M19.90 Unspecified osteoarthritis, unspecified site; M25.512 Pain in left shoulder; M54.5 Low back pain
CPT/HCPCS: 80053; 82565

== ENCOUNTER → 2018-04-02 | Outpatient (CLI) | payer MEDICARE | LOC: M RAD 10:02 | DX: M19.90 Unspecified osteoarthritis, unspecified site (principal); M25.512 Pain in left shoulder | CPT/HCPCS: 72100 ==

== ENCOUNTER → 2018-04-07 | Outpatient (CLI) | payer MEDICARE | LOC: M RAD 07:17 | DX: H90.3 Sensorineural hearing loss, bilateral (principal) | CPT/HCPCS: 70480 ==

== ENCOUNTER → 2018-04-25 | Outpatient (CLI) | payer MEDICARE | LOC: M SMT 10:51 | DX: I48.0 Paroxysmal atrial fibrillation (principal) | CPT/HCPCS: 71046 ==

== ENCOUNTER → 2018-04-25 | Outpatient (REF) | payer MEDICARE ==
[2018-04-25 12:16] LABS: ANION GAP 7 MEQ/L (8-16); BLOOD UREA NITROGEN 18 MG/DL (7-18); C REACTIVE PROTEIN QUANTITATIV 0.98 MG/DL (0.00-0.30); CALCIUM LEVEL 8.4 MG/DL (8.8-10.2); CARBON DIOXIDE LEVEL 30 MEQ/L (21-32); CHLORIDE LEVEL 106 MEQ/L (98-107); CREATININE FOR GFR 1.05 MG/DL (0.70-1.30); GLOMERULAR FILTRATION RATE > 60.0 (>35); GLUCOSE, FASTING 92 MG/DL (70-100); POTASSIUM SERUM 4.9 MEQ/L (3.5-5.1); SODIUM LEVEL 143 MEQ/L (136-145); URIC ACID 5.5 MG/DL (3.5-7.2)
[2018-04-25 12:45] LABS: TOTAL 25(OH) VITAMIN D 22.4 NG/ML (30.0-100.0)
== END ==
LOC: M SFHCLERA 09:36
DX: M19.90 Unspecified osteoarthritis, unspecified site (principal); Z79.899 Other long term (current) drug therapy
CPT/HCPCS: 84550

== ENCOUNTER 2018-05-01 09:55 | Emergency (ER) | payer MEDICARE ==
[2018-05-01 11:36] LABS: BASO % 0.3 % (0.0-1.0); EOS % 0.5 % (0.0-3.0); HEMATOCRIT 40.1 % (42.0-52.0); HEMOGLOBIN 12.8 g/dl (13.5-17.5); IMMATURE GRANULOCYTE % 0.3 % (0-3.0); LYMPH # 1.1 10^3/uL (1.5-4.5); LYMPH % 18.5 % (24.0-44.0); MEAN CORPUSCULAR HEMOGLOBIN 28.7 pg (27.0-33.0); MEAN CORPUSCULAR HGB CONC 31.9 g/dl (32.0-36.5); MEAN CORPUSCULAR VOLUME 89.9 fl (80.0-96.0); MONO # 0.5 10^3/uL (0.0-0.8); NEUTROPHILS # 4.2 10^3/uL (1.8-7.7); NEUTROPHILS % 72.4 % (36.0-66.0); PLATELET COUNT, AUTOMATED 208 10^3/uL (150-450); RED BLOOD COUNT 4.46 10^6/uL (4.30-6.10); RED CELL DISTRIBUTION WIDTH 14.6 % (11.5-14.5); WHITE BLOOD COUNT 5.9 10^3/uL (4.0-10.0)
[2018-05-01 11:47] LABS: INR 1.17; PROTHROMBIN TIME 15.1 SECONDS (12.1-14.4)
[2018-05-01 12:18] LABS: ALBUMIN 3.2 GM/DL (3.2-5.2); ALBUMIN/GLOBULIN RATIO 0.97 (1.00-1.93); ALKALINE PHOSPHATASE 102 U/L (45-117); ALT/SGPT 18 U/L (12-78); ANION GAP 7 MEQ/L (8-16); AST/SGOT 12 U/L (7-37); BILIRUBIN,DIRECT < 0.1 MG/DL (0.0-0.2); BILIRUBIN,TOTAL 0.3 MG/DL (0.2-1.0); BLOOD UREA NITROGEN 19 MG/DL (7-18); CALCIUM LEVEL 8.1 MG/DL (8.8-10.2); CARBON DIOXIDE LEVEL 26 MEQ/L (21-32); CHLORIDE LEVEL 109 MEQ/L (98-107); CPK CREATINE PHOSPHOKINASE 61 U/L (39-308); CREATININE FOR GFR 1.08 MG/DL (0.70-1.30); GLOMERULAR FILTRATION RATE > 60.0 (>35); GLUCOSE, FASTING 139 MG/DL (70-100); LIPASE 93 U/L (73-393); MB/CK RELATIVE INDEX 2.62 (< OR =4); POTASSIUM SERUM 3.9 MEQ/L (3.5-5.1); SODIUM LEVEL 142 MEQ/L (136-145); TOTAL PROTEIN 6.5 GM/DL (6.4-8.2); TROPONIN I < 0.02 NG/ML (< 0.10)
== END 2018-05-01 13:22 | disposition left against medical advice (07) ==
LOC: M ED 09:55
DX: R55 Syncope and collapse (principal); I10 Essential (primary) hypertension; N40.0 Benign prostatic hyperplasia without lower urinary tract symptoms; M06.4 Inflammatory polyarthropathy; Z95.0 Presence of cardiac pacemaker; Z79.01 Long term (current) use of anticoagulants; Z98.0 Intestinal bypass and anastomosis status; Z87.891 Personal history of nicotine dependence; Z88.5 Allergy status to narcotic agent; Z88.8 Allergy status to other drugs, medicaments and biological substances; Z88.1 Allergy status to other antibiotic agents; Z88.2 Allergy status to sulfonamides; Z79.899 Other long term (current) drug therapy; Z79.84 Long term (current) use of oral hypoglycemic drugs
CPT/HCPCS: 71045

== ENCOUNTER → 2018-05-08 | Outpatient (CLI) | payer MEDICARE | LOC: M SLEEP 20:00 | DX: G47.33 Obstructive sleep apnea (adult) (pediatric) (principal) | CPT/HCPCS: 95810 ==

== ENCOUNTER → 2018-05-08 | Outpatient (CLI) | payer MEDICARE | LOC: M SLEEP 19:24 | DX: G47.33 Obstructive sleep apnea (adult) (pediatric) (principal) ==

== ENCOUNTER → 2018-06-21 | Outpatient (CLI) | payer MEDICARE | LOC: M SLEEP 20:00 | DX: G47.33 Obstructive sleep apnea (adult) (pediatric) (principal) | CPT/HCPCS: 95811 ==

== ENCOUNTER → 2018-08-07 | Outpatient (REF) | payer MEDICARE ==
[~2018-08-07] MED LIST changes: +AMIO200T PO; +COLC1TAB13 PO; +ELIQ5TAB; +ELIQ5TAB PO; +FISH1000 PO; +FURO40TA2 PO; +GABA-845 PO; +KEFL500C17 PO; +OMEG100011 PO
[2018-08-07 10:46] LABS: MAU/CREAT RATIO 91.2 MCG/MG (0.0-30.0)
[2018-08-07 11:08] LABS: HEMOGLOBIN A1c 6.4 %
== END ==
LOC: M SFHCPLAZ 08:31
PROVIDERS: ATTEND Family Medicine
DX: E11.9 Type 2 diabetes mellitus without complications (principal)
CPT/HCPCS: 36415; 82043; 83036; G0463

== ENCOUNTER 2018-08-21 10:49 | Emergency (ER) | payer MEDICARE ==
[~2018-08-21] VITALS: Ht 188 cm; Wt 115.9 kg
[~2018-08-21 10:49] MED LIST changes: -FURO40TA2 PO; -KEFL500C17 PO
[2018-08-21 11:49] LABS: BASO % 0.5 % (0.0-1.0); EOS # 0.1 10^3/uL (0.0-0.50); EOS % 0.6 % (0.0-3.0); HEMATOCRIT 40.2 % (42.0-52.0); HEMOGLOBIN 12.7 g/dl (13.5-17.5); LYMPH % 11.8 % (24.0-44.0); MEAN CORPUSCULAR HEMOGLOBIN 28.3 pg (27.0-33.0); MEAN CORPUSCULAR HGB CONC 31.6 g/dl (32.0-36.5); MEAN CORPUSCULAR VOLUME 89.7 fl (80.0-96.0); MONO # 0.7 10^3/uL (0.0-0.8); MONO % 8.6 % (0.0-5.0); NEUTROPHILS # 6.5 10^3/uL (1.8-7.7); NEUTROPHILS % 77.9 % (36.0-66.0); PLATELET COUNT, AUTOMATED 284 10^3/uL (150-450); RED BLOOD COUNT 4.48 10^6/uL (4.30-6.10); WHITE BLOOD COUNT 8.3 10^3/uL (4.0-10.0)
--- NOTE | 2018-08-21 12:10 | REP ---
Duplex extremity venous ultrasound: Left lower extremity. History: Swelling and pain left lower extremity. Red spots. Findings: The deep veins are anechoic and fully compressible from the groin to the popliteal fossa in the left lower extremity. Color flow imaging is homogeneous. Spectral Doppler interrogation demonstrates intact respiratory variation in flow and normal manual augmentation of flow. There is no evidence of deep vein thrombosis. Impression: Negative left lower extremity duplex venous ultrasound. No evidence of deep vein thrombosis. Electronically Signed by Papo Bruno MD 08/21/2018 12:02 P
[2018-08-21 12:15] LABS: INR 1.36
[2018-08-21 12:16] LABS: PARTIAL THROMBOPLASTIN TIME 50.4 SECONDS (25.4-37.6)
[2018-08-21 12:32] LABS: BLOOD UREA NITROGEN 19 MG/DL (7-18); CALCIUM LEVEL 8.9 MG/DL (8.8-10.2); CARBON DIOXIDE LEVEL 26 MEQ/L (21-32); CHLORIDE LEVEL 106 MEQ/L (98-107); CREATININE FOR GFR 1.04 MG/DL (0.70-1.30); GLOMERULAR FILTRATION RATE > 60.0 (>35); GLUCOSE, FASTING 98 MG/DL (70-100); NT-PRO BNP 6345 PG/ML (<450); POTASSIUM SERUM 4.1 MEQ/L (3.5-5.1); SODIUM LEVEL 140 MEQ/L (136-145)
--- NOTE | 2018-08-21 12:51 | REP ---
CHEST, TWO VIEWS: Two views of the chest are performed. Comparison 05/01/2018 and 04/25/2018. Heart is upper limits of normal in size. There appears to be mild bibasilar interstitial edema and fibrosis. There are small bilateral effusions. There is calcification of the thoracic aorta. The mediastinal silhouette is unchanged. There is a left dual lead pacemaker unchanged. There are degenerative changes of the spine. IMPRESSION: Mild interstitial edema and fibrosis. Small bilateral effusions. Electronically Signed by Juan Mccray MD 08/21/2018 03:49 P
[2018-08-21] MEDS ORDERED: ceFAZolin SOD 1 GM in D5W MINI-BAG PLUS 50 ML IV ONE (13:15)
[2018-08-21] MEDS ORDERED: KEFL500C17 PO (14:35)
[2018-08-21 14:46] VITALS: BP 117/63
--- NOTE | 2018-08-22 07:19 | ECGEPIP ---
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 Order Number: [id number] Reading MD: Domonique Conklin Measurements Intervals [place] Rate: 85 P: 255 CO: 196 QRS: 87 QRSD: 182 T: -86 QT: 436 QTc: 520 Interpretive Statements ELECTRONIC ATRIAL PACEMAKER ELECTRONIC VENTRICULAR PACEMAKER ABNORMAL RHYTHM ECG Electronically Signed On 08-22-2018 7:19:11 EST by Domonique Conklin
--- NOTE | 2018-08-22 11:50 | ED PDOC ---
Post-Departure Follow-Up dr arias faxed formal report of cxr for fu Tia Alvarez MD Aug 22, 2018 11:50
== END 2018-08-21 14:48 | disposition home or self-care (01) ==
LOC: M ED 10:49
DX: L03.116 Cellulitis of left lower limb (principal); I87.2 Venous insufficiency (chronic) (peripheral); Z95.0 Presence of cardiac pacemaker; Z79.899 Other long term (current) drug therapy; Z79.01 Long term (current) use of anticoagulants; Z88.2 Allergy status to sulfonamides; Z88.5 Allergy status to narcotic agent; Z88.8 Allergy status to other drugs, medicaments and biological substances; Z87.891 Personal history of nicotine dependence
CPT/HCPCS: 71046; 80048; 83880; 85025; 85610; 85730; 93005; 93971; 96374; 99284; J0690

== ENCOUNTER 2018-08-23 15:19 | Emergency (ER) | payer MEDICARE ==
[~2018-08-23] VITALS: Ht 188 cm; Wt 116.1 kg
[~2018-08-23 15:19] MED LIST changes: +KEFL500C17 PO
--- NOTE | 2018-08-23 16:03 | REP ---
Clinical: Cough and dyspnea. Comparison: 08/21/2018. Findings: Evaluation is limited by portable technique which accentuates the pulmonary vasculature and interstitium. Differential diagnosis includes pulmonary interstitial edema as well as diffuse bronchitis and requires clinical correlation. No focal consolidation. No obvious effusion. No pneumothorax. Skeletal structures intact. Stable cardiomegaly noted with dual lead pacemaker in satisfactory position. Impression: Coarsened, increased interstitial markings suggest pulmonary interstitial edema versus bronchitis. Electronically Signed by Jim Wright MD 08/23/2018 03:54 P
[2018-08-23 16:36] LABS: BASO % 0.4 % (0.0-1.0); EOS # 0.1 10^3/uL (0.0-0.50); EOS % 1.2 % (0.0-3.0); HEMATOCRIT 39.4 % (42.0-52.0); HEMOGLOBIN 12.6 g/dl (13.5-17.5); LYMPH # 0.8 10^3/uL (1.5-4.5); LYMPH % 10.1 % (24.0-44.0); MEAN CORPUSCULAR HEMOGLOBIN 28.8 pg (27.0-33.0); MEAN CORPUSCULAR VOLUME 90.2 fl (80.0-96.0); MONO # 0.5 10^3/uL (0.0-0.8); NEUTROPHILS # 6.1 10^3/uL (1.8-7.7); PLATELET COUNT, AUTOMATED 274 10^3/uL (150-450); RED BLOOD COUNT 4.37 10^6/uL (4.30-6.10); WHITE BLOOD COUNT 7.5 10^3/uL (4.0-10.0)
[2018-08-23 16:49] LABS: INR 1.3; PROTHROMBIN TIME 16.4 SECONDS (12.1-14.4)
[2018-08-23] MEDS ORDERED: FUROSEMIDE 40 MG/4 ML VIAL (J1940) IV ONE (17:00)
[2018-08-23 17:10] LABS: ALT/SGPT 22 U/L (12-78); BILIRUBIN,DIRECT 0.2 MG/DL (0.0-0.2); BILIRUBIN,TOTAL 0.4 MG/DL (0.2-1.0); BLOOD UREA NITROGEN 17 MG/DL (7-18); CALCIUM LEVEL 8.4 MG/DL (8.8-10.2); CARBON DIOXIDE LEVEL 25 MEQ/L (21-32); CHLORIDE LEVEL 106 MEQ/L (98-107); CPK CREATINE PHOSPHOKINASE 41 U/L (39-308); CREATININE FOR GFR 0.99 MG/DL (0.70-1.30); GLOMERULAR FILTRATION RATE > 60.0 (>35); GLUCOSE, FASTING 120 MG/DL (70-100); MB/CK RELATIVE INDEX 3.66 (< OR =4); NT-PRO BNP 6633 PG/ML (<450); POTASSIUM SERUM 4.2 MEQ/L (3.5-5.1); SODIUM LEVEL 139 MEQ/L (136-145); TOTAL PROTEIN 7.2 GM/DL (6.4-8.2); TROPONIN I 0.02 NG/ML (< 0.10)
[2018-08-23] MEDS ORDERED: CEPHALEXIN 500 MG CAP PO STA (18:28)
[2018-08-23] MEDS ORDERED: FURO40TA2 PO (19:26)
[2018-08-23 19:30] VITALS: BP 110/59
--- NOTE | 2018-08-24 07:24 | ECGEPIP ---
Stationary ECG Study 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
== END 2018-08-23 19:37 | disposition home or self-care (01) ==
LOC: M ED 15:19 → EDBD 15:19 → M ED 19:37
DX: I50.9 Heart failure, unspecified (principal); L03.116 Cellulitis of left lower limb; I11.0 Hypertensive heart disease with heart failure; M19.90 Unspecified osteoarthritis, unspecified site; N40.0 Benign prostatic hyperplasia without lower urinary tract symptoms; Z95.0 Presence of cardiac pacemaker; Z79.899 Other long term (current) drug therapy; Z79.01 Long term (current) use of anticoagulants; Z87.891 Personal history of nicotine dependence
CPT/HCPCS: 36415; 71045; 80048; 80076; 82550; 82553; 83880; 84443; 84484; 85025; 85610; 87040; 87486; 87581; 87633; 87798; 93005; 93041; 94760; 96374; 99285; J1940

== ENCOUNTER → 2018-11-18 | Outpatient (REF) | payer MEDICARE ==
[~2018-11-18] MED LIST changes: +FURO40TA2 PO
[2018-11-18 13:10] LABS: MAGNESIUM LEVEL 2.1 MG/DL (1.8-2.4)
== END ==
LOC: M SFHCPLAZ 09:55
PROVIDERS: ATTEND Family Medicine
DX: M11.89 Other specified crystal arthropathies, multiple sites (principal); G62.9 Polyneuropathy, unspecified
CPT/HCPCS: 36415; 82607; 83540; 83735; G0463

== ENCOUNTER → 2018-12-22 | Outpatient (REF) | payer MEDICARE ==
[~2018-12-22] MED LIST changes: +ALLO100T PO; +AMIO200T40 PO; +CLOT1CRE2; +FERR325T3 PO; +FURO20TA2 PO; +STOO100C PO; +VITAD1000T PO
[2018-12-22 10:31] LABS: MALB URINE SIEMENS 53.3 MG/L; MAU/CREAT RATIO 31.1 MCG/MG (0.0-30.0)
[2018-12-22 11:24] LABS: HEMOGLOBIN A1c 7.4 %
== END ==
LOC: M SFHCPLAZ 08:25
PROVIDERS: ATTEND Family Medicine
DX: E61.1 Iron deficiency (principal); E11.9 Type 2 diabetes mellitus without complications
CPT/HCPCS: 82043; 82728; 83036; 84466; 85046; G0463

== ENCOUNTER 2018-12-28 06:58 | Emergency (ER) | payer MEDICARE ==
[~2018-12-28] VITALS: Ht 188 cm; Wt 113.3 kg
[~2018-12-28 06:58] MED LIST changes: -ALLO100T PO; -AMIO200T40 PO; -CLOT1CRE2; -FERR325T3 PO; -FURO20TA2 PO; -STOO100C PO; -VITAD1000T PO
[2018-12-28] MEDS ORDERED: ALLO100T PO (07:20)
[2018-12-28] MEDS ORDERED: FERR325T3 PO (07:20)
[2018-12-28] MEDS ORDERED: CLOT1CRE2 (07:20)
[2018-12-28] MEDS ORDERED: STOO100C PO (07:20)
[2018-12-28] MEDS ORDERED: AMIO200T40 PO (07:20)
[2018-12-28] MEDS ORDERED: FURO20TA2 PO (07:20)
[2018-12-28] MEDS ORDERED: VITAD1000T PO (07:20)
[2018-12-28 08:15] LABS: BASO % 0.5 % (0.0-1.0); EOS % 0.7 % (0.0-3.0); HEMATOCRIT 35.9 % (42.0-52.0); HEMOGLOBIN 11.3 g/dl (13.5-17.5); LYMPH % 16.4 % (24.0-44.0); MEAN CORPUSCULAR HEMOGLOBIN 27.8 pg (27.0-33.0); MEAN CORPUSCULAR HGB CONC 31.5 g/dl (32.0-36.5); MEAN CORPUSCULAR VOLUME 88.4 fl (80.0-96.0); MONO # 0.5 10^3/uL (0.0-0.8); MONO % 8.1 % (0.0-5.0); NEUTROPHILS # 4.5 10^3/uL (1.8-7.7); NEUTROPHILS % 73.6 % (36.0-66.0); PLATELET COUNT, AUTOMATED 212 10^3/uL (150-450); RED BLOOD COUNT 4.06 10^6/uL (4.30-6.10)
[2018-12-28] MEDS ORDERED: KEFL500C17 PO (08:26)
[2018-12-28] MEDS ORDERED: CEPHALEXIN 500 MG CAP PO ONE (08:30)
[2018-12-28 09:20] VITALS: BP 118/69
== END 2018-12-28 09:30 | disposition home or self-care (01) ==
LOC: M ED 06:58
DX: I87.2 Venous insufficiency (chronic) (peripheral) (principal); Z91.19 Patient's noncompliance with other medical treatment and regimen; L03.116 Cellulitis of left lower limb; I48.92 Unspecified atrial flutter; Z95.0 Presence of cardiac pacemaker; E11.9 Type 2 diabetes mellitus without complications; M10.9 Gout, unspecified; Z87.891 Personal history of nicotine dependence; Z79.01 Long term (current) use of anticoagulants; Z79.84 Long term (current) use of oral hypoglycemic drugs; Z79.899 Other long term (current) drug therapy; Z88.6 Allergy status to analgesic agent; Z88.5 Allergy status to narcotic agent; Z88.1 Allergy status to other antibiotic agents

== ENCOUNTER → 2018-12-29 | Outpatient (REF) | payer MEDICARE ==
[~2018-12-29] MED LIST changes: +ALLO100T PO; +AMIO200T40 PO; +CLOT1CRE2; +FERR325T3 PO; +FURO20TA2 PO; +STOO100C PO; +VITAD1000T PO
[2018-12-29 11:23] LABS: BLOOD UREA NITROGEN 22 MG/DL (7-18); CALCIUM LEVEL 8.5 MG/DL (8.8-10.2); CARBON DIOXIDE LEVEL 28 MEQ/L (21-32); CHLORIDE LEVEL 105 MEQ/L (98-107); CREATININE FOR GFR 1.18 MG/DL (0.70-1.30); GLOMERULAR FILTRATION RATE > 60.0 (>35); GLUCOSE, FASTING 118 MG/DL (70-100); NT-PRO BNP 6409 PG/ML (<450); POTASSIUM SERUM 4.3 MEQ/L (3.5-5.1); SODIUM LEVEL 139 MEQ/L (136-145)
== END ==
LOC: M SFHCPLAZ 09:43
PROVIDERS: ATTEND Family Medicine
DX: R06.01 Orthopnea (principal); R60.0 Localized edema

== ENCOUNTER → 2018-12-29 | Outpatient (CLI) | payer MEDICARE ==
--- NOTE | 2018-12-29 11:20 | REP ---
Left lower extremity Duplex Doppler venous ultrasound: Real time compression and duplex Doppler interrogation of the left lower extremity deep venous system is performed. The left common femoral, superficial femoral and popliteal veins are fully compressible with transducer pressure and demonstrate normal spontaneous and phasic flow, without evidence of deep venous thrombosis. Impression: No evidence of deep venous thrombosis of the left lower extremity femoral popliteal venous system. A Clarke's cyst measures 2.8 x 3.3 x 1.2 cm. Electronically Signed by Juan Mccray MD 12/29/2018 11:12 A
--- NOTE | 2018-12-29 11:28 | REP ---
CHEST, TWO VIEWS: Two views of the chest are performed and compared to prior studies most recent of which are 08/23/2018 and 08/21/2018. There is mild cardiomegaly. Mildly increased interstitial markings in the lung base likely represent a combination of fibrosis and edema similar to prior study. There are small bilateral pleural effusions. There is calcification of the thoracic aorta. The mediastinal silhouette is unchanged. There is a left dual lead pacemaker noted. There are degenerative changes of the spine. IMPRESSION: There appears to be mild bibasilar interstitial infiltrate and edema with small bilateral pleural effusions and cardiomegaly. Findings are similar to the prior study of 08/21/2018. Electronically Signed by Juan Mccray MD 12/30/2018 11:31 A
== END ==
LOC: M RAD 10:24
PROVIDERS: ATTEND Family Medicine
DX: R91.8 Other nonspecific abnormal finding of lung field (principal); J90 Pleural effusion, not elsewhere classified; I51.7 Cardiomegaly; M71.22 Synovial cyst of popliteal space [Baker], left knee; R06.01 Orthopnea; R60.0 Localized edema
CPT/HCPCS: 36415; 71046; 80048; 83880; 85379; 93971; G0463

== ENCOUNTER → 2019-03-09 | Outpatient (REF) | payer MEDICARE ==
[~2019-03-09] MED LIST changes: +CHOL100029 PO; +MM S100C PO; -STOO100C PO; -VITAD1000T PO
[2019-03-09 10:02] LABS: BASO % 0.4 % (0.0-1.0); EOS # 0.1 10^3/uL (0.0-0.50); EOS % 0.8 % (0.0-3.0); HEMATOCRIT 34.8 % (42.0-52.0); HEMOGLOBIN 10.7 g/dl (13.5-17.5); LYMPH # 0.9 10^3/uL (1.5-4.5); LYMPH % 12.1 % (24.0-44.0); MEAN CORPUSCULAR HEMOGLOBIN 25.6 pg (27.0-33.0); MEAN CORPUSCULAR HGB CONC 30.7 g/dl (32.0-36.5); MEAN CORPUSCULAR VOLUME 83.3 fl (80.0-96.0); MONO # 0.7 10^3/uL (0.0-0.8); NEUTROPHILS # 5.8 10^3/uL (1.8-7.7); NEUTROPHILS % 77.3 % (36.0-66.0); PLATELET COUNT, AUTOMATED 292 10^3/uL (150-450); RED BLOOD COUNT 4.18 10^6/uL (4.30-6.10); WHITE BLOOD COUNT 7.5 10^3/uL (4.0-10.0)
[2019-03-09 10:11] LABS: PERCENT SATURATION 5.5 % (19.7-50.0)
== END ==
LOC: M SFHCPLAZ 08:14
PROVIDERS: ATTEND Family Medicine
DX: R06.01 Orthopnea (principal); D50.9 Iron deficiency anemia, unspecified
CPT/HCPCS: 83550; 83880; 85025; G0463

== ENCOUNTER → 2019-03-19 | Outpatient (CLI) | payer MEDICARE ==
[~2019-03-19] MED LIST changes: +ATIV1TAB10 PO; +CLIN150C14 PO; +D32000TA2 PO; +DOXY100C; +DOXY100C PO; +LORA1TAB4 PO; +OCTR100I10 SC; +OMEP40CA97 PO; +SUCR1TA PO
== END ==
LOC: M LAB 09:18
PROVIDERS: ATTEND Family Medicine
DX: D50.9 Iron deficiency anemia, unspecified (principal)

== ENCOUNTER 2019-03-27 07:54 | Outpatient (CLI) | payer MEDICARE ==
[~2019-03-27] VITALS: Ht 193 cm; Wt 113.3 kg
[~2019-03-27 07:54] MED LIST changes: -ATIV1TAB10 PO; -CLIN150C14 PO; -D32000TA2 PO; -DOXY100C; -DOXY100C PO; -LORA1TAB4 PO; -OCTR100I10 SC; -OMEP40CA97 PO; -SUCR1TA PO
[2019-03-27 08:30] VITALS: BP 127/60
[2019-03-27 09:00] VITALS: BP 93/52
[2019-03-27] MEDS ORDERED: FERRIC CARBOXYMALTOSE INJ 750 MG in NS 250 ML IV ONE (09:00)
[2019-03-27 10:15] VITALS: BP 113/63
[2019-03-27 10:50] VITALS: BP 108/53
== END 2019-03-27 10:55 | disposition home or self-care (01) ==
LOC: M INFU 07:54
PROVIDERS: ATTEND Family Medicine
DX: D50.9 Iron deficiency anemia, unspecified (principal)
CPT/HCPCS: 96365; 96366; J1439

== ENCOUNTER 2019-04-03 08:29 | Outpatient (CLI) | payer MEDICARE ==
[~2019-04-03] VITALS: Ht 193 cm; Wt 113.3 kg
[2019-04-03 08:30] VITALS: BP 127/70
[2019-04-03] MEDS ORDERED: FERRIC CARBOXYMALTOSE INJ 750 MG in NS 250 ML IV ONE (09:30)
[2019-04-03] MEDS ORDERED: SUCR1TA PO (09:44)
[2019-04-03] MEDS ORDERED: OMEP40CA2 PO (09:45)
[2019-04-03 10:00] VITALS: BP 130/56
[2019-04-03 10:30] VITALS: BP 100/59
[2019-04-03 11:00] VITALS: BP 100/57
[2019-04-03 11:45] VITALS: BP 107/63
[2019-04-03 12:20] VITALS: BP 131/66
== END 2019-04-03 12:20 | disposition home or self-care (01) ==
LOC: M INFU 08:29
PROVIDERS: ATTEND Family Medicine
DX: D50.9 Iron deficiency anemia, unspecified (principal)
CPT/HCPCS: 96365; 96366; J1439

== ENCOUNTER 2019-04-09 07:13 | Outpatient (RCR) | payer MEDICARE ==
[~2019-04-09 07:13] MED LIST changes: +OMEP40CA2 PO; +SUCR1TA PO
== END 2019-04-20 ==
LOC: M PT 07:13
PROVIDERS: ATTEND Family Medicine
DX: Z51.89 Encounter for other specified aftercare (principal); R27.0 Ataxia, unspecified

== ENCOUNTER 2019-04-25 07:51 | Emergency (ER) | payer MEDICARE ==
[~2019-04-25] VITALS: Ht 188 cm; Wt 103.8 kg
[~2019-04-25 07:51] MED LIST changes: -OMEP40CA2 PO; +OMEP40CA97 PO
[2019-04-25] MEDS ORDERED: DOXY100C (08:00)
[2019-04-25] MEDS ORDERED: CLINDAMYCIN 900 MG in IV 1 EA IV ONE (09:00)
[2019-04-25] MEDS ORDERED: NS 500 ML IV ONE (09:00)
[2019-04-25 09:06] LABS: BASO % 0.5 % (0.0-1.0); EOS # 0.1 10^3/uL (0.0-0.5); EOS % 0.8 % (0.0-3.0); HEMATOCRIT 39.9 % (42.0-52.0); HEMOGLOBIN 12.5 g/dl (13.5-17.5); LYMPH # 0.7 10^3/uL (1.5-5.0); LYMPH % 12.4 % (24.0-44.0); MEAN CORPUSCULAR HEMOGLOBIN 28.5 pg (27.0-33.0); MEAN CORPUSCULAR HGB CONC 31.3 g/dl (32.0-36.5); MEAN CORPUSCULAR VOLUME 91.1 fl (80.0-96.0); MONO # 0.5 10^3/uL (0.0-0.8); MONO % 8.8 % (0.0-5.0); NEUTROPHILS # 4.6 10^3/uL (1.5-8.5); NEUTROPHILS % 77.2 % (36.0-66.0); PLATELET COUNT, AUTOMATED 212 10^3/uL (150-450); RED BLOOD COUNT 4.38 10^6/uL (4.30-6.10); WHITE BLOOD COUNT 5.9 10^3/uL (4.0-10.0)
[2019-04-25 09:23] LABS: INR 1.26; PROTHROMBIN TIME 15.5 SECONDS (11.8-14.0)
[2019-04-25 09:24] LABS: PARTIAL THROMBOPLASTIN TIME 43.2 SECONDS (25.0-38.4)
[2019-04-25 09:29] LABS: ALBUMIN 3.5 GM/DL (3.2-5.2); BILIRUBIN,TOTAL 0.5 MG/DL (0.2-1.0); C REACTIVE PROTEIN QUANTITATIV 1.67 MG/DL (0.00-0.30); CALCIUM LEVEL 8.9 MG/DL (8.8-10.2); CREATININE FOR GFR 1.35 MG/DL (0.70-1.30); GLOMERULAR FILTRATION RATE 53.5 (>35); POTASSIUM SERUM 4.3 MEQ/L (3.5-5.1); TOTAL PROTEIN 7.3 GM/DL (6.4-8.2)
[2019-04-25 09:32] LABS: ERYTHROCYTE SEDIMENTATION RATE 28 mm/hr (0-20)
[2019-04-25 09:54] LABS: PT 1:2 SUBSTITUTION 14.1 SECONDS
[2019-04-25 09:56] LABS: APTT 1:2 SUBSTITUTION 32.5 SECONDS
--- NOTE | 2019-04-25 10:14 | REP ---
Right lower extremity deep vein duplex ultrasound: The deep veins demonstrate normal compression, normal Doppler color flow and normal Doppler waveforms with respiration and augmentation from the popliteal vein to the common femoral vein. Impression: There is no right lower extremity deep vein thrombus. Electronically Signed by Juan Mcdonald MD 04/25/2019 10:06 A
[2019-04-25 10:28] VITALS: BP 103/65
[2019-04-25] MEDS ORDERED: CLIN150C14 PO (10:30)
[2019-04-26] MEDS ORDERED: CLIN150C14 PO (07:09)
== END 2019-04-25 11:02 | disposition home or self-care (01) ==
LOC: M ED 07:51
DX: L03.115 Cellulitis of right lower limb (principal); E11.9 Type 2 diabetes mellitus without complications; I48.92 Unspecified atrial flutter; Z79.84 Long term (current) use of oral hypoglycemic drugs; Z79.899 Other long term (current) drug therapy; Z88.6 Allergy status to analgesic agent; Z88.5 Allergy status to narcotic agent; Z88.8 Allergy status to other drugs, medicaments and biological substances; Z95.0 Presence of cardiac pacemaker; Z96.653 Presence of artificial knee joint, bilateral

== ENCOUNTER 2019-04-26 06:58 | Emergency (ER) | payer MEDICARE ==
[~2019-04-26] VITALS: Ht 188 cm; Wt 103.9 kg
[2019-04-26 06:58] VITALS: BP 121/73
[~2019-04-26 06:58] MED LIST changes: +CLIN150C14 PO; +DOXY100C; +OMEP40CA2 PO; -OMEP40CA97 PO
[2019-04-26] MEDS ORDERED: CLIN150C14 PO (07:09)
== END 2019-04-26 07:44 | disposition home or self-care (01) ==
LOC: M ED 06:58
DX: L03.115 Cellulitis of right lower limb (principal); I10 Essential (primary) hypertension; E11.9 Type 2 diabetes mellitus without complications; Z87.891 Personal history of nicotine dependence; Z88.2 Allergy status to sulfonamides; Z88.5 Allergy status to narcotic agent; Z88.6 Allergy status to analgesic agent; Z88.8 Allergy status to other drugs, medicaments and biological substances; Z79.84 Long term (current) use of oral hypoglycemic drugs; Z79.899 Other long term (current) drug therapy; Z95.0 Presence of cardiac pacemaker

== ENCOUNTER 2019-05-08 08:21 | Outpatient (CLI) | payer MEDICARE ==
[~2019-05-08] VITALS: Ht 188 cm; Wt 103.9 kg
[~2019-05-08 08:21] MED LIST changes: -OMEP40CA2 PO; +OMEP40CA97 PO
[2019-05-08 08:25] VITALS: BP 123/66
[2019-05-08] MEDS ORDERED: FERRIC CARBOXYMALTOSE INJ 750 MG in NS 250 ML IV ONE (08:45)
[2019-05-08 09:30] VITALS: BP 104/57
[2019-05-08 11:00] VITALS: BP 138/71
== END 2019-05-08 11:00 | disposition home or self-care (01) ==
LOC: M INFU 08:21
PROVIDERS: ATTEND Family Medicine
DX: D50.9 Iron deficiency anemia, unspecified (principal)
CPT/HCPCS: 96365; J1439

== ENCOUNTER → 2019-05-19 | Outpatient (REF) | payer MEDICARE ==
[2019-05-19 16:27] LABS: FREE T4 1.23 NG/DL (0.76-1.46); THYROID STIMULATING HORMONE 4.32 uIU/ML (0.358-3.740)
== END ==
LOC: M SFHCPLAZ 13:30
PROVIDERS: ATTEND Family Medicine
DX: G62.9 Polyneuropathy, unspecified (principal); F41.8 Other specified anxiety disorders

== ENCOUNTER → 2019-05-25 | Outpatient (CLI) | payer MEDICARE ==
--- NOTE | 2019-05-25 10:42 | REP ---
CT of the abdomen and pelvis without IV contrast, followed by scanning with IV contrast. There is bowel contrast on both phases of the study. Comparisons are the abdomen/pelvis CT dated 03/05/2017 and abdomen MRI dated 03/05/2017. There are bilateral pleural effusions within the visualized lower lung palafox as an interval change. On the comparison CT. A mass was suspected in the body of the pancreas and there was dilatation of the pancreatic duct in the pancreatic tail. On the study today again suspect there is a mass in the body of the pancreas that has increased in size. There is dilatation of the pancreatic duct in the pancreatic tail. There is no peripancreatic inflammation to suggest pancreatitis. In addition, there are numerous ring-shaped lesions throughout both lobes of the liver compatible with hepatic metastases versus abscesses, as a change from the prior study. There is no ascites. There is no mesenteric lymph node enlargement. There is anterior abdominal wall mesh, as previously. The gallbladder and spleen are unremarkable and unchanged. The adrenals are unremarkable. There is no hydronephrosis. I suspect there are bilateral parapelvic cysts. There is a nonobstructive 3 ml calculus at the left renal lower pole, unchanged. There is no perinephric stranding. The abdominal aorta is unremarkable except for calcified atheroma. There is no periaortic adenopathy. There is no bowel distension or obstruction. Mesentery is unremarkable. Pelvis: There has been sigmoid colon resection. This is unchanged. There is no ascites or adenopathy. The bladder is unremarkable. The appendix is unremarkable. The fluid identified previously in the left greater trochanteric bursa has significantly decreased. Impression: I suspect there is a mass in the body of the pancreas that has increased in size. There are numerous ring-shaped lesions throughout both lobes of the liver, compatible with metastases versus abscess sees. There are new bilateral pleural effusions. There is no ascites. There is no mesenteric or retroperitoneal adenopathy. Sigmoid colon resection, unchanged. There are no lytic, blastic or destructive skeletal changes. There is degenerative disc disease throughout the lumbar spine. Electronically Signed by Juan Mcdonald MD 05/25/2019 10:35 A
== END ==
LOC: M RAD 07:57
PROVIDERS: ATTEND Internal Medicine Gastroenterology
DX: J90 Pleural effusion, not elsewhere classified (principal); M51.36 Other intervertebral disc degeneration, lumbar region; K76.9 Liver disease, unspecified; D50.9 Iron deficiency anemia, unspecified; R63.4 Abnormal weight loss; R93.2 Abnormal findings on diagnostic imaging of liver and biliary tract

== ENCOUNTER → 2019-05-25 | Outpatient (CLI) | payer MEDICARE ==
[~2019-05-25] MED LIST changes: +DOXY100C PO; +GASTROGRAFIN SOLUTION 30ML (Q9963) As Ordered ONE; +ISOVUE-370 76% 100ML VIAL (Q9967) As Ordered ONE; +LORA1TAB12 PO
--- NOTE | 2019-05-25 10:32 | REP ---
CT brain: 05/25/2019. Indication: Ataxia. Comparison: 05/01/2018. Technique: Unenhanced axial CT images of the brain were obtained from skull base to vertex. Findings: There is no acute intracranial hemorrhage, acute cortical infarction, mass effect, hydrocephalus or significant fluid within the visualized paranasal sinuses/mastoid air cells. Age-related volume loss, intracranial atherosclerotic disease and white matter hypoattenuation most consistent with chronic small vessel disease are present. Impression: No acute intracranial process. Age-related chronic ischemic changes. Electronically Signed by Jayce Jean DO 05/25/2019 10:23 A
== END ==
LOC: M RAD 08:01
PROVIDERS: ATTEND Family Medicine
DX: R27.0 Ataxia, unspecified (principal)
CPT/HCPCS: 70450; 74178; Q9963; Q9967

== ENCOUNTER → 2019-05-28 | Outpatient (REF) | payer MEDICARE ==
[~2019-05-28] MED LIST changes: -GASTROGRAFIN SOLUTION 30ML (Q9963) As Ordered ONE; -ISOVUE-370 76% 100ML VIAL (Q9967) As Ordered ONE
[2019-05-28 11:09] LABS: HEMOGLOBIN 13.2 g/dl (13.5-17.5); MEAN CORPUSCULAR HEMOGLOBIN 28.6 pg (27.0-33.0); MEAN CORPUSCULAR VOLUME 95.4 fl (80.0-96.0); PLATELET COUNT, AUTOMATED 209 10^3/uL (150-450); RED BLOOD COUNT 4.61 10^6/uL (4.30-6.10); WHITE BLOOD COUNT 5.8 10^3/uL (4.0-10.0)
[2019-05-28 11:43] LABS: ALBUMIN 3.4 GM/DL (3.2-5.2); BILIRUBIN,TOTAL 0.5 MG/DL (0.2-1.0); CALCIUM LEVEL 8.2 MG/DL (8.8-10.2); CREATININE FOR GFR 1.31 MG/DL (0.70-1.30); GLOMERULAR FILTRATION RATE 55.4 (>35); PERCENT SATURATION 14.6 % (19.7-50.0); POTASSIUM SERUM 4.6 MEQ/L (3.5-5.1); TOTAL PROTEIN 6.8 GM/DL (6.4-8.2)
[2019-05-28 11:45] LABS: TOTAL 25(OH) VITAMIN D 41.9 NG/ML (30.0-100.0)
== END ==
LOC: M SFHCPLAZ 07:49
PROVIDERS: ATTEND Family Medicine
DX: D50.9 Iron deficiency anemia, unspecified (principal); K86.89 Other specified diseases of pancreas; K76.9 Liver disease, unspecified; E11.9 Type 2 diabetes mellitus without complications; E55.9 Vitamin D deficiency, unspecified
CPT/HCPCS: 36415; 80053; 82306; 82728; 83036; 83550; 85027; G0463

== ENCOUNTER → 2019-06-09 | Outpatient (CLI) | payer MEDICARE ==
--- NOTE | 2019-06-16 13:33 | REP ---
PET/CT: History: Diagnosing pancreatic cancer. Pancreatic mass. Comparison CT study May 25, 2019. TECHNIQUE: 1 hour 17 minutes following the intravenous injection of a 10.73 mCi dose of F-18 FDG, three-dimensional PET scintigraphy is acquired from the skull base to the proximal thighs. Triplanar noncontrast CT scanning is acquired through the same anatomic range for attenuation correction, and image registration with scan parameters optimized to minimize radiation exposure to the patient. PET scintigraphy and CT datasets were fused and displayed on a workstation with multiplanar and projection display capability. PET/CT Findings: Report is delayed because of technical connectivity issues preventing this study from being transmitted directly to our PACS system at the time of acquisition. This study is presented to me for interpretation at this day and time. The accompanying CT findings include small bilateral pleural effusions right a little greater than left, cardiomegaly, and multiple low-density liver lesions consistent with metastases. A mesh ventral hernia repair is visible. On scintigraphic images, the head and neck soft tissues are unremarkable. There is no abnormal hypermetabolic uptake in the thoracic cavity. At the level of the mass in the body of the pancreas, there is mildly hypermetabolic uptake, maximum SUV value 4.52. The known metastatic lesions in the liver show only mildly elevated uptake focally. Not all of these are above background hepatic parenchyma. The two or three active lesions seen have maximum standard uptake value ranging up to 5.70 where as background liver parenchyma uptake is in the range of 3.1. There is no evidence of hypermetabolic abdominal adenopathy. No other abnormal abdominal or pelvic hypermetabolic uptake is seen. No pulmonary parenchymal nodule is appreciated. Impression: Mildly hypermetabolic uptake in the mass in the body of the pancreas as well as in several of the multiple metastatic lesions seen by CT. Only mildly elevated uptake is observed in this patient's disease. Cardiomegaly and small to moderate bilateral pleural effusions are noted. Electronically Signed by Papo Bruno MD 06/16/2019 02:20 P
== END ==
LOC: M PLARAD 14:32
PROVIDERS: ATTEND Internal Medicine Medical Oncology
DX: D37.8 Neoplasm of uncertain behavior of other specified digestive organs (principal); J90 Pleural effusion, not elsewhere classified; I51.7 Cardiomegaly
CPT/HCPCS: 78815; A9552

== ENCOUNTER → 2019-06-24 | Outpatient (CLI) | payer MEDICARE ==
[~2019-06-24] MED LIST changes: +LIDOCAINE 1% MDV 20ML VIAL As Ordered ONE
[2019-06-24 12:58] VITALS: BP 96/52
--- NOTE | 2019-06-24 16:30 | REP ---
ULTRASOUND-GUIDED LIVER BIOPSY The procedure was performed under the direct supervision of Dr. Mccray. The patient has a history of multiple in ring shape lesions throughout both lobes of the liver seen on a previous CT scan dated 05/25/2019. The risks and benefits of the procedure were explained to the patient and informed consent was obtained. A lesion in the left lobe of the liver was localized using ultrasound guidance. The skin was prepped and draped in a sterile fashion. 1% lidocaine was used as a local anesthetic. Using ultrasound guidance a 19/20 gauge coaxial needle biopsy system was inserted and advanced into the mass. Six core biopsy samples were obtained and sent to lab. The patient tolerated the procedure well and there were no immediate complications. After the appropriate amount of monitored convalescence the patient was discharged from the department. Electronically Signed by WILLIAN Cazares 06/24/2019 04:17 P Electronically Signed by Juan Mccray MD 06/24/2019 04:22 P
== END ==
LOC: M IRPRO 09:54
DX: C7A.8 Other malignant neuroendocrine tumors (principal)

== ENCOUNTER 2019-07-22 06:05 | Emergency (ER) | payer MEDICARE ==
[~2019-07-22] VITALS: Ht 188 cm; Wt 100.9 kg
[~2019-07-22 06:05] MED LIST changes: +ATIV1TAB10 PO; +D32000TA2 PO; -LIDOCAINE 1% MDV 20ML VIAL As Ordered ONE; -LORA1TAB12 PO; +LORA1TAB4 PO
[2019-07-22 07:10] LABS: BASO % 0.4 % (0.0-1.0); EOS # 0.1 10^3/uL (0.0-0.5); EOS % 1.2 % (0.0-3.0); HEMATOCRIT 42.5 % (42.0-52.0); LYMPH # 0.8 10^3/uL (1.5-5.0); LYMPH % 15.6 % (24.0-44.0); MEAN CORPUSCULAR HEMOGLOBIN 28.2 pg (27.0-33.0); MEAN CORPUSCULAR HGB CONC 30.6 g/dl (32.0-36.5); MEAN CORPUSCULAR VOLUME 92.2 fl (80.0-96.0); MONO # 0.5 10^3/uL (0.0-0.8); MONO % 9.4 % (0.0-5.0); NEUTROPHILS # 3.7 10^3/uL (1.5-8.5); PLATELET COUNT, AUTOMATED 196 10^3/uL (150-450); RED BLOOD COUNT 4.61 10^6/uL (4.30-6.10); WHITE BLOOD COUNT 5.1 10^3/uL (4.0-10.0)
[2019-07-22 07:37] LABS: CALCIUM LEVEL 8.7 MG/DL (8.8-10.2); CREATININE FOR GFR 1.36 MG/DL (0.70-1.30); GLOMERULAR FILTRATION RATE 52.9 (>35); POTASSIUM SERUM 3.9 MEQ/L (3.5-5.1)
[2019-07-22 08:35] VITALS: BP 109/59
[2019-07-22] MEDS ORDERED: FURO20TA2 PO (08:41)
--- NOTE | 2019-07-22 13:20 | ECGEPIP ---
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
[2019-08-03] MEDS ORDERED: OCTR100I10 SC (15:46)
== END 2019-07-22 09:03 | disposition home or self-care (01) ==
LOC: M ED 06:05
DX: I87.2 Venous insufficiency (chronic) (peripheral) (principal); D64.9 Anemia, unspecified; N18.9 Chronic kidney disease, unspecified; E11.9 Type 2 diabetes mellitus without complications; I50.9 Heart failure, unspecified; I11.0 Hypertensive heart disease with heart failure; I48.92 Unspecified atrial flutter; G47.33 Obstructive sleep apnea (adult) (pediatric); Z95.0 Presence of cardiac pacemaker; Z79.899 Other long term (current) drug therapy; Z79.01 Long term (current) use of anticoagulants; Z88.2 Allergy status to sulfonamides; Z88.5 Allergy status to narcotic agent; Z88.8 Allergy status to other drugs, medicaments and biological substances; Z87.891 Personal history of nicotine dependence

== ENCOUNTER → 2019-07-27 | Outpatient (CLI) | payer MEDICARE ==
[~2019-07-27] MED LIST changes: -MONT10TA2 PO; +MONT10TA4 PO; +OCTR100I10 SC; +VITA1CHW7 PO
--- NOTE | 2019-07-29 10:45 | REP ---
INDIUM-111 OCTREOSCAN: With SPECT imaging. HISTORY: Liver metastasis. Tumor imaging. 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 Comparison PET/CT study June 09, 2019. Comparison abdomen pelvis CT study May 25, 2019. TECHNIQUE: 6.6 mCi of Indium-111 Octreoscan is injected. 4-hour, 24-hour, and 48-hour whole body images are acquired. SPECT imaging is acquired. SCINTIGRAPHIC FINDINGS: There are numerous foci of increased uptake scattered throughout the right and left lobes of the liver. There appears to be a focus of faint increased uptake in the body of the pancreas correspond with a pancreatic lesion. Normal physiologic tracer distribution to the spleen and kidneys. No other abnormal uptake is appreciated. IMPRESSION: Multiple hepatic metastatic lesions. There is a somewhat elongate area of increased uptake in the body of the pancreas. No other abnormal uptake. Electronically Signed by Papo Bruno MD 07/29/2019 11:30 A
== END ==
LOC: M RAD 08:02
PROVIDERS: ATTEND Internal Medicine Medical Oncology
DX: C78.7 Secondary malignant neoplasm of liver and intrahepatic bile duct (principal)
CPT/HCPCS: 78803; 78804; A9572

== ENCOUNTER → 2019-09-25 | Outpatient (REF) | payer MEDICARE ==
[~2019-09-25] MED LIST changes: +VANC125C3 PO
[2019-09-25 18:14] LABS: BASO % 0.4 % (0.0-1.0); EOS # 0.2 10^3/uL (0.0-0.5); EOS % 2.9 % (0.0-3.0); HEMATOCRIT 36.3 % (42.0-52.0); HEMOGLOBIN 11.2 g/dl (13.5-17.5); LYMPH # 0.7 10^3/uL (1.5-5.0); LYMPH % 10.5 % (24.0-44.0); MEAN CORPUSCULAR HGB CONC 30.9 g/dl (32.0-36.5); MEAN CORPUSCULAR VOLUME 87.5 fl (80.0-96.0); MONO # 0.7 10^3/uL (0.0-0.8); MONO % 10.5 % (0.0-5.0); NEUTROPHILS # 5.2 10^3/uL (1.5-8.5); NEUTROPHILS % 75.3 % (36.0-66.0); PLATELET COUNT, AUTOMATED 296 10^3/uL (150-450); RED BLOOD COUNT 4.15 10^6/uL (4.30-6.10); WHITE BLOOD COUNT 6.9 10^3/uL (4.0-10.0)
[2019-09-25 18:22] LABS: ALBUMIN 2.9 GM/DL (3.2-5.2); BILIRUBIN,TOTAL 0.4 MG/DL (0.2-1.0); CALCIUM LEVEL 8.3 MG/DL (8.8-10.2); CREATININE FOR GFR 1.26 MG/DL (0.70-1.30); FREE T4 1.4 NG/DL (0.76-1.46); GLOMERULAR FILTRATION RATE 57.8 (>35); PERCENT SATURATION 6.4 % (19.7-50.0); POTASSIUM SERUM 4.2 MEQ/L (3.5-5.1); THYROID STIMULATING HORMONE 2.72 uIU/ML (0.358-3.740); TOTAL PROTEIN 6.7 GM/DL (6.4-8.2)
[2019-09-25 18:30] LABS: HEMOGLOBIN A1c 7.1 %
== END ==
LOC: M SFHCPLAZ 14:38
PROVIDERS: ATTEND Family Medicine
DX: R63.4 Abnormal weight loss (principal); R53.1 Weakness; E11.9 Type 2 diabetes mellitus without complications

== ENCOUNTER 2019-09-30 08:53 | Emergency (ER) | payer MEDICARE ==
[~2019-09-30] VITALS: Ht 185.4 cm; Wt 95.5 kg
--- NOTE | 2019-09-30 09:48 | REP ---
Portable chest x-ray: Single view. History: Chest pain. Comparison chest x-ray: December 29, 2018. Findings: Monitoring electrodes are seen. A bipolar pacemaker is again noted in the right heart. Cardiomegaly is observed unchanged. Pulmonary vasculature is cephalized and congested. There is blunting of the left lateral pleural angle. Interstitial markings are mildly prominent. This may reflect mild interstitial edema. There is fissural thickening in the minor fissure. Impression: CHF pattern. Electronically Signed by Papo Bruno MD 09/30/2019 04:46 P
[2019-09-30 09:57] LABS: BASO % 0.3 % (0.0-1.0); EOS # 0.1 10^3/uL (0.0-0.5); EOS % 1.7 % (0.0-3.0); HEMATOCRIT 34.1 % (42.0-52.0); HEMOGLOBIN 10.7 g/dl (13.5-17.5); LYMPH # 0.7 10^3/uL (1.5-5.0); LYMPH % 8.4 % (24.0-44.0); MEAN CORPUSCULAR HGB CONC 31.4 g/dl (32.0-36.5); MEAN CORPUSCULAR VOLUME 86.1 fl (80.0-96.0); MONO # 0.6 10^3/uL (0.0-0.8); MONO % 8.3 % (0.0-5.0); NEUTROPHILS # 6.2 10^3/uL (1.5-8.5); NEUTROPHILS % 80.9 % (36.0-66.0); PLATELET COUNT, AUTOMATED 284 10^3/uL (150-450); RED BLOOD COUNT 3.96 10^6/uL (4.30-6.10); WHITE BLOOD COUNT 7.7 10^3/uL (4.0-10.0)
[2019-09-30 10:07] LABS: INR 1.43; PROTHROMBIN TIME 17.1 SECONDS (11.8-14.0)
[2019-09-30 10:35] LABS: ALBUMIN 2.7 GM/DL (3.2-5.2); ALT/SGPT 26 U/L (12-78); BILIRUBIN,DIRECT 0.3 MG/DL (0.0-0.2); BILIRUBIN,TOTAL 0.7 MG/DL (0.2-1.0); BLOOD UREA NITROGEN 26 MG/DL (7-18); CALCIUM LEVEL 8.6 MG/DL (8.8-10.2); CARBON DIOXIDE LEVEL 26 MEQ/L (21-32); CHLORIDE LEVEL 104 MEQ/L (98-107); CK-MB VALUE MASS < 1.0 NG/ML (<3.6); CPK CREATINE PHOSPHOKINASE 30 U/L (39-308); CREATININE FOR GFR 1.06 MG/DL (0.70-1.30); GLOMERULAR FILTRATION RATE > 60.0 (>35); GLUCOSE, FASTING 117 MG/DL (70-100); LIPASE 102 U/L (73-393); MB/CK RELATIVE INDEX 3.33 (< OR =4); NT-PRO BNP 25277 PG/ML (<450); POTASSIUM SERUM 3.8 MEQ/L (3.5-5.1); SODIUM LEVEL 140 MEQ/L (136-145); TROPONIN I < 0.02 NG/ML (< 0.10)
[2019-09-30 13:00] VITALS: BP 98/56
[2019-09-30] MEDS ORDERED: FUROSEMIDE 20 MG/2 ML VIAL (J1940) IV ONE (13:15)
--- NOTE | 2019-09-30 20:55 | ECGEPIP ---
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
== END 2019-09-30 13:53 | disposition home or self-care (01) ==
LOC: EDBD 08:53 → M ED 08:53
DX: I11.9 Hypertensive heart disease without heart failure (principal); E11.9 Type 2 diabetes mellitus without complications; H81.10 Benign paroxysmal vertigo, unspecified ear; I48.92 Unspecified atrial flutter; N40.1 Benign prostatic hyperplasia with lower urinary tract symptoms; Z79.2 Long term (current) use of antibiotics; Z79.899 Other long term (current) drug therapy; Z86.19 Personal history of other infectious and parasitic diseases; Z88.6 Allergy status to analgesic agent; Z88.8 Allergy status to other drugs, medicaments and biological substances; Z95.0 Presence of cardiac pacemaker

== ENCOUNTER 2019-10-07 14:25 | Inpatient (IN) | payer MEDICARE ==
[~2019-10-07] VITALS: Ht 188 cm; Wt 91.6 kg
[2019-10-07] MEDS: HumaLOG INSULIN (NovoLOG) PER UNIT SC SCH (03:41)
[~2019-10-07 14:25] MED LIST changes: -ELIQ5TAB
--- NOTE | 2019-10-07 15:17 | REP ---
REASON: Cough and dyspnea. COMPARISON: Multiple, the latest 09/30/2019. The technique utilized in obtaining the radiograph has magnified the cardiac silhouette and accentuated the interstitial markings. The cardiomediastinal silhouette and lung palafox are unchanged. Note is again made of mild cardiomegaly accentuated by technique. There is a dual chamber bipolar pacemaker device status quo. The diffuse increase in the interstitial markings seen on the prior exam are unchanged. No acute patchy parenchymal opacities or pleural effusions have developed. There is no change in the osseous structures. IMPRESSION: No significant change from the prior exam as described above. Electronically Signed by Rod Gallo DO 10/07/2019 04:01 P
[2019-10-07 15:56] LABS: VENOUS BASE EXCESS 6.1 (-2.0-2.0); VENOUS HCO3 31.2 MEQ/L (23.0-27.0); VENOUS O2 SATURATION 48.1 % (60.0-80.0); VENOUS PARTIAL PRESSURE CO2 48.1 mmHg (38.0-50.0); VENOUS PARTIAL PRESSURE O2 26.7 mmHg (30.0-50.0); VENOUS STANDARD HCO3 29.1 MEQ/L; VENOUS TOTAL CO2 32.7 MEQ/L (24.0-28.0)
[2019-10-07] MEDS ORDERED: PANTOPRAZOLE 40MG INJ (PROTONIX) (C9113) IV ONE (16:00)
[2019-10-07 16:01] LABS: BASO % 0.3 % (0.0-1.0); EOS # 0.2 10^3/uL (0.0-0.5); EOS % 2.7 % (0.0-3.0); HEMATOCRIT 29.9 % (42.0-52.0); HEMOGLOBIN 9.3 g/dl (13.5-17.5); LYMPH # 0.5 10^3/uL (1.5-5.0); LYMPH % 7.6 % (24.0-44.0); MEAN CORPUSCULAR HEMOGLOBIN 26.6 pg (27.0-33.0); MEAN CORPUSCULAR HGB CONC 31.1 g/dl (32.0-36.5); MEAN CORPUSCULAR VOLUME 85.4 fl (80.0-96.0); MONO # 0.6 10^3/uL (0.0-0.8); MONO % 9.2 % (0.0-5.0); NEUTROPHILS # 5.4 10^3/uL (1.5-8.5); NEUTROPHILS % 79.6 % (36.0-66.0); PLATELET COUNT, AUTOMATED 287 10^3/uL (150-450); WHITE BLOOD COUNT 6.7 10^3/uL (4.0-10.0)
[2019-10-07 16:15] LABS: INR 1.54; PROTHROMBIN TIME 18.2 SECONDS (11.8-14.0)
[2019-10-07] MEDS ORDERED: NS 500 ML IV ONE (16:30)
[2019-10-07 16:34] LABS: ALBUMIN 2.4 GM/DL (3.2-5.2); ALT/SGPT 28 U/L (12-78); BILIRUBIN,DIRECT 0.3 MG/DL (0.0-0.2); BILIRUBIN,TOTAL 0.5 MG/DL (0.2-1.0); BLOOD UREA NITROGEN 24 MG/DL (7-18); CALCIUM LEVEL 8.4 MG/DL (8.8-10.2); CARBON DIOXIDE LEVEL 30 MEQ/L (21-32); CHLORIDE LEVEL 103 MEQ/L (98-107); CK-MB VALUE MASS 1.1 NG/ML (<3.6); CPK CREATINE PHOSPHOKINASE 45 U/L (39-308); CREATININE FOR GFR 1.06 MG/DL (0.70-1.30); GLOMERULAR FILTRATION RATE > 60.0 (>35); GLUCOSE, FASTING 112 MG/DL (70-100); MB/CK RELATIVE INDEX 2.44 (< OR =4); NT-PRO BNP 21237 PG/ML (<450); POTASSIUM SERUM 4.2 MEQ/L (3.5-5.1); SODIUM LEVEL 139 MEQ/L (136-145); TOTAL PROTEIN 6.4 GM/DL (6.4-8.2); TROPONIN I 0.02 NG/ML (< 0.10)
[2019-10-07] MEDS ORDERED: FURO20TA2 PO (16:43)
[2019-10-07] MEDS ORDERED: ALLO100T PO (16:43)
--- NOTE | 2019-10-07 17:08 | HPEPDOC ---
[facility] Medical History & Physical Date of Admission Oct 07, 2019 Date of Service: Oct 07, 2019 History and Physical CHIEF COMPLAINT: Melena HISTORY OF PRESENT ILLNESS: 84 yo male with xtensive medical history for several week history of melena. States he has had colonoscopy many years ago, is supposed to have another, but is always rescheduled because of his other medical issues. Was recently seen by cardiology apparently for decompensate heart failure. Denies any other medical complaints. Denies chest pain, shortness of breath, headaches. Daughter at bedside feels he is short of breath. PAST MEDICAL HISTORY: #Metastatic well-differentiated PNET, grade 2, status post 06/24/2019 liver biopsy with 3 cm pancreatic body mass, multifocal enhancing liver lesions, and with CT and octreotide scans correlating in terms of extent of disease. Normal CA19-9, elevated chromogranin A. #Carcinoid symptoms of hot flashes and flushing, occasional loose stool. #Bilateral small pleural effusions without uptake on PET 06/09/2019. #Systolic and diastolic heart failure, LVEF 45% on 10/2017 echocardiogram. #Paroxysmal atrial fibrillation on amiodarone. #Status post pacemaker. #Type 2 diabetes. #INFLAMMATORY ARTHRITIS; POSITIVE NASRA #ATRIAL FLUTTER - DR. 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 DIFF IN 08/2019 PAST SURGICAL HISTORY: #colon resection - ostomy - reversal ALLERGIES: Please see below. REVIEW OF SYSTEMS: Negative except as per HPI HOME MEDICATIONS: Please see below. PHYSICAL EXAMINATION: VITAL SIGNS: See below General : NAD, lying comfortably in bed, elderly HEENT: NC/AT, EOMI Lungs: CTA B/L Heart: +S1S2, RRR Abd: soft, NT, +BS Ext: trace edema LABORATORY DATA: See below. MICROBIOLOGY: Please see below. ASSESSMENT: 84 yo male with extensive medical history for melena #melena - clear liquid diet - serial CBC - transfuse if Hgb <8 - relatively asymptomatic #afib/flutter - will continue DOAC for now #HTN - daughter states typically SBP 100 - continue home Rx for now #INFLAMMATORY ARTHRITIS; POSITIVE NASRA #BPPV #BPH #PACEMAKER 11/2017 - DR. 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 DIFF IN 08/2019 Vital Signs Vital Signs Date Time Temp Pulse Resp B/P (MAP) Pulse Ox O2 Delivery O2 Flow Rate FiO2 10/07/19 16:09 84 90/55 (67) 10/07/19 14:51 Room Air 10/07/19 14:25 97.7 16 98 Laboratory Data Labs 24H Laboratory Tests 2 10/07/19 15:43: Immature Granulocyte % (Auto) 0.6, Neutrophils (%) (Auto) 79.6H, Lymphocytes (%) (Auto) 7.6L, Monocytes (%) (Auto) 9.2H, Eosinophils (%) (Auto) 2.7, Basophils (%) (Auto) 0.3, Neutrophils # (Auto) 5.4, Lymphocytes # (Auto) 0.5L, Monocytes # (Auto) 0.6, Eosinophils # (Auto) 0.2, Basophils # (Auto) 0.0, Nucleated Red Blood Cells % (auto) 0.0, Prothrombin Time 18.2H, Prothromb Time International Ratio 1.54, Blood Gas Bicarbonate Standard 29.1, Venous Blood pH 7.430, Venous Blood Partial Pressure CO2 48.1, Venous Blood Partial Pressure O2 26.7L, Venous Blood Total Carbon Dioxide 32.7H, Venous Blood HCO3 31.2H, Venous Blood Oxygen Saturation 48.1L, Venous Blood Base Excess 6.1H, Anion Gap 6L, Glomerular Filtration Rate > 60.0, Lactic Acid Level 1.0, Calcium Level 8.4L, Total Bilirubin 0.5, Direct Bilirubin 0.3H, Aspartate Amino Transf (AST/SGOT) 22, Alanine Aminotransferase (ALT/SGPT) 28, Alkaline Phosphatase 189H, Total Creatine Kinase 45, Creatine Kinase MB 1.1, Creatine Kinase MB Relative Index 2.44, Troponin I 0.02, VJ-Tgl-S-Type Natriuretic Peptide 23469T, Total Protein 6.4, Albumin 2.4L, Albumin/Globulin Ratio 0.60L, Thyroid Stimulating Hormone (TSH) 2.460 CBC/BMP Laboratory Tests 10/07/19 15:43 Microbiology Microbiology 10/07/19 Blood Culture, Received Pending 10/07/19 Respiratory Virus Panel (PCR) (BRITTANY), Received Pending 10/07/19 Blood Culture, Received Pending Home Medications Scheduled Allopurinol (Allopurinol) 100 Mg Tablet, 100 MG PO DAILY PATIENT HAS BEEN OUT OF THIS MEDICATION Amiodarone HCl (Amiodarone HCl) 200 Mg Tablet, 200 MG PO DAILY Apixaban (Eliquis) 5 Mg Tab, 5 MG PO BID Cholecalciferol (Vitamin D3) (Vitamin D3) 2,000 Unit Tab.chew, 2,000 UNIT PO DAILY Finasteride (Finasteride) 5 Mg Tab, 5 MG PO QHS PATIENT HAS BEEN OUT OF THIS MEDICATION Furosemide (Furosemide) 20 Mg Tablet, 20 MG PO Q2D ALTERNATE WITH 40MG DOSE Furosemide (Furosemide) 20 Mg Tablet, 40 MG PO Q2D ALTERNATE WITH 20MG DOSE Grampian-3 Fatty Acids/Fish Oil (Grampian 3 1,000 mg Softgel) 1 Cap Cap, 1,000 MG PO DAILY Omeprazole (Omeprazole) 40 Mg Capsule.dr, 40 MG PO DAILY Sucralfate (Sucralfate) 1 Gm Tablet, 1 GRAM PO ACHS Allergies Coded Allergies: NSAIDS (Non-Steroidal Anti-Inflamma (Verified Allergy, Unknown, unknown, 12/28/18) sulfamethoxazole (Verified Allergy, Unknown, unknown, 12/28/18) trimethoprim (Verified Allergy, Unknown, unknown, 12/28/18) hydrocodone (Verified Adverse Reaction, Intermediate, nausea /vomiting/dizzy, 09/30/19) A-FIB/CHADSVASC A-FIB History Current/History of A-Fib/PAF?: Yes Current PO Anticoag Therapy: Yes ANI KELLY MD Oct 07, 2019 17:08
--- NOTE | 2019-10-07 17:39 | ECGEPIP ---
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
[2019-10-07 19:40] VITALS: BP 103/62
[2019-10-07] MEDS: SUCRALFATE 1 GM TAB PO SCH ×2 (19:59→20:33)
[2019-10-07] MEDS: APIXABAN 5 MG TAB (ELIQUIS) PO SCH (20:33)
[2019-10-07] MEDS: PANTOPRAZOLE 40MG INJ (PROTONIX) (C9113) IV SCH (20:33)
[2019-10-07] MEDS: FINASTERIDE 5 MG TAB PO SCH (20:33)
[2019-10-07 23:45] LABS: HEMATOCRIT 27.4 % (42.0-52.0); HEMOGLOBIN 8.5 g/dl (13.5-17.5)
[2019-10-08] VITALS: BP 93/62
[2019-10-08] MEDS ORDERED: GLUCAGON FOR INJ 1 MG VIAL (J1610) SC PRN (02:45)
[2019-10-08] MEDS ORDERED: DEXTROSE 50% 50 ML SYRINGE IV PRN (02:45)
[2019-10-08] MEDS ORDERED: GLUCOSE 4 GM CHEW TABLET PO PRN (02:45)
[2019-10-08 04:00] VITALS: BP 105/55
[2019-10-08 06:13] LABS: HEMATOCRIT 29.4 % (42.0-52.0); HEMOGLOBIN 9.2 g/dl (13.5-17.5); MEAN CORPUSCULAR HEMOGLOBIN 26.3 pg (27.0-33.0); MEAN CORPUSCULAR HGB CONC 31.3 g/dl (32.0-36.5); PLATELET COUNT, AUTOMATED 288 10^3/uL (150-450); WHITE BLOOD COUNT 6.2 10^3/uL (4.0-10.0)
[2019-10-08] MEDS: ONDANSETRON 4MG/2ML VIAL (J2405) IV PRN (06:13)
[2019-10-08 06:35] LABS: ALBUMIN 2.2 GM/DL (3.2-5.2); ALT/SGPT 24 U/L (12-78); BILIRUBIN,TOTAL 0.5 MG/DL (0.2-1.0); BLOOD UREA NITROGEN 22 MG/DL (7-18); CALCIUM LEVEL 8.4 MG/DL (8.8-10.2); CARBON DIOXIDE LEVEL 29 MEQ/L (21-32); CHLORIDE LEVEL 104 MEQ/L (98-107); CREATININE FOR GFR 1.02 MG/DL (0.70-1.30); GLOMERULAR FILTRATION RATE > 60.0 (>35); GLUCOSE, FASTING 143 MG/DL (70-100); SODIUM LEVEL 138 MEQ/L (136-145); TOTAL PROTEIN 6.7 GM/DL (6.4-8.2)
[2019-10-08 08:00] VITALS: BP 104/56
[2019-10-08] MEDS: HumaLOG INSULIN (NovoLOG) PER UNIT SC SCH ×4 (08:10→20:46)
[2019-10-08] MEDS: SUCRALFATE 1 GM TAB PO SCH ×4 (08:11→20:40)
[2019-10-08] MEDS ORDERED: FUROSEMIDE 20 MG TAB PO SCH (09:00)
[2019-10-08] MEDS ORDERED: OMEPRAZOLE 20 MG CAP PO SCH (09:00)
[2019-10-08] MEDS: allopurinoL 100 MG TAB PO SCH (09:23)
[2019-10-08] MEDS: AMIODARONE 200 MG TAB (PACERONE) PO SCH (09:23)
[2019-10-08] MEDS: PANTOPRAZOLE 40MG INJ (PROTONIX) (C9113) IV SCH ×2 (09:24→20:39)
[2019-10-08] MEDS: APIXABAN 5 MG TAB (ELIQUIS) PO SCH ×2 (09:24→20:39)
--- NOTE | 2019-10-08 11:34 | IPNPDOC ---
Text Note Date of Service The patient was seen on 10/08/19. NOTE S: Patient seen and examined at bedside. No new medical complaints this morning. Is feeling better. Overnight required some supplemental oxygen. He does have history of DARYL, unable to tolerate CPAP. O: PHYSICAL EXAMINATION: VITAL SIGNS: See below General : NAD, lying comfortably in bed, elderly HEENT: NC/AT, EOMI Lungs: CTA B/L Heart: +S1S2, RRR Abd: soft, NT, +BS Ext: trace edema ASSESSMENT: 84 yo male with extensive medical history for melena. #melena - clear liquid diet - serial CBC - transfuse if Hgb <8 - relatively asymptomatic #afib/flutter - will continue DOAC for now #HTN - daughter states typically SBP 100 - continue home Rx for now #INFLAMMATORY ARTHRITIS; POSITIVE NASRA #BPPV #BPH #PACEMAKER 11/2017 - DR. 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 DIFF IN 08/2019 #Metastatic well-differentiated PNET, grade 2, status post 06/24/2019 liver biopsy with 3 cm pancreatic body mass, multifocal enhancing liver lesions, and with CT and octreotide scans correlating in terms of extent of disease. Normal CA19-9, elevated chromogranin A. #Carcinoid symptoms of hot flashes and flushing, occasional loose stool. #Bilateral small pleural effusions without uptake on PET 06/09/2019. #Systolic and diastolic heart failure, LVEF 45% on 10/2017 echocardiogram. #Paroxysmal atrial fibrillation on amiodarone. #Status post pacemaker. #Type 2 diabetes. VS,Fishbone, I+O VS, Fishbone, I+O Laboratory Tests 10/07/19 15:43 10/07/19 23:38 10/08/19 05:34 Vital Signs Date Time Temp Pulse Resp B/P (MAP) Pulse Ox O2 Delivery O2 Flow Rate FiO2 10/08/19 08:00 97.5 73 20 104/56 (72) 91 Room Air 10/08/19 04:00 1.0 I&O- Last 24 Hours up to 6 AM 10/08/19 06:00 Intake Total 620 ml Output Total 650 ml Balance -30 ml ANI KELLY MD Oct 08, 2019 11:34
[2019-10-08 11:41] VITALS: BP 109/63
[2019-10-08 15:46] VITALS: BP 116/61
[2019-10-08 20:00] VITALS: BP 102/57
[2019-10-08] MEDS: FINASTERIDE 5 MG TAB PO SCH (20:39)
[2019-10-09] VITALS (7 sets, daily range): BP systolic 98–114; BP diastolic 53–59
[2019-10-09 06:07] LABS: HEMATOCRIT 26.7 % (42.0-52.0); HEMOGLOBIN 8.3 g/dl (13.5-17.5); MEAN CORPUSCULAR HEMOGLOBIN 26.3 pg (27.0-33.0); MEAN CORPUSCULAR HGB CONC 31.1 g/dl (32.0-36.5); MEAN CORPUSCULAR VOLUME 84.8 fl (80.0-96.0); PLATELET COUNT, AUTOMATED 269 10^3/uL (150-450); RED BLOOD COUNT 3.15 10^6/uL (4.30-6.10); WHITE BLOOD COUNT 6.6 10^3/uL (4.0-10.0)
[2019-10-09 06:32] LABS: ALBUMIN 2.1 GM/DL (3.2-5.2); ALT/SGPT 20 U/L (12-78); BILIRUBIN,TOTAL 0.5 MG/DL (0.2-1.0); BLOOD UREA NITROGEN 21 MG/DL (7-18); CALCIUM LEVEL 8.3 MG/DL (8.8-10.2); CARBON DIOXIDE LEVEL 30 MEQ/L (21-32); CHLORIDE LEVEL 103 MEQ/L (98-107); CREATININE FOR GFR 1.02 MG/DL (0.70-1.30); GLOMERULAR FILTRATION RATE > 60.0 (>35); GLUCOSE, FASTING 128 MG/DL (70-100); POTASSIUM SERUM 3.8 MEQ/L (3.5-5.1); SODIUM LEVEL 136 MEQ/L (136-145); TOTAL PROTEIN 6.5 GM/DL (6.4-8.2)
[2019-10-09] MEDS ORDERED: SLF 3 ML SYR IV PRN (06:45)
[2019-10-09] MEDS: SUCRALFATE 1 GM TAB PO SCH ×4 (08:32→21:01)
[2019-10-09] MEDS: PANTOPRAZOLE 40MG INJ (PROTONIX) (C9113) IV SCH ×2 (08:33→21:02)
[2019-10-09] MEDS: APIXABAN 5 MG TAB (ELIQUIS) PO SCH ×2 (08:33→21:01)
[2019-10-09] MEDS: AMIODARONE 200 MG TAB (PACERONE) PO SCH (08:33)
[2019-10-09] MEDS: allopurinoL 100 MG TAB PO SCH (08:33)
[2019-10-09] MEDS: HumaLOG INSULIN (NovoLOG) PER UNIT SC SCH ×4 (08:34→20:45)
[2019-10-09] MEDS ORDERED: FUROSEMIDE 20 MG TAB PO SCH (09:00)
[2019-10-09 10:29] LABS: NT-PRO BNP 18337 PG/ML (<450)
--- NOTE | 2019-10-09 10:41 | REP ---
Chest x-ray: Two views. History: Shortness of breath. Comparison chest x-ray: October 07, 2019. Findings: Monitoring electrodes are seen overlying the chest and a bipolar pacemaker is again noted in place. Oxygen delivery tubing is seen. There is fissural thickening. Cardiomegaly is again observed and there is blunting of the posterior pleural angles indicating small bilateral pleural effusions. Pulmonary vasculature is cephalized. No definite infiltrate. Impression: CHF pattern with cardiomegaly vascular congestion and small bilateral effusions. No definite infiltrate. Electronically Signed by Papo Bruno MD 10/09/2019 10:33 A
[2019-10-09 10:55] LABS: ABG BASE EXCESS 3.2 (-2.0-2.0); ABG HCO3 27.1 MEQ/L (22.0-26.0); ABG O2 SATURATION 98.7 % (95.0-99.0); ABG PARTIAL PRESSURE CO2 38.4 mmHg (35.0-45.0); ABG PARTIAL PRESSURE O2 119.4 mmHg (75.0-100.0); ABG STANDARD HCO3 27.3 MEQ/L (22.0-26.0); ABG TOTAL CO2 28.2 MEQ/L (23.0-31.0); ABG pH (ARTERIAL) 7.466 UNITS (7.350-7.450)
[2019-10-09] MEDS: FUROSEMIDE 20 MG/2 ML VIAL (J1940) IV SCH ×2 (12:09→21:02)
[2019-10-09] MEDS: SLF 3 ML SYR IV SCH ×2 (12:30→21:02)
[2019-10-09] MEDS: FINASTERIDE 5 MG TAB PO SCH (21:02)
[2019-10-10 04:00] VITALS: BP 112/58
[2019-10-10] MEDS: FUROSEMIDE 20 MG/2 ML VIAL (J1940) IV SCH ×3 (04:15→20:31)
[2019-10-10] MEDS: SLF 3 ML SYR IV SCH ×3 (05:03→20:31)
[2019-10-10 06:10] LABS: HEMATOCRIT 27.4 % (42.0-52.0); HEMOGLOBIN 8.5 g/dl (13.5-17.5); MEAN CORPUSCULAR HEMOGLOBIN 26.4 pg (27.0-33.0); MEAN CORPUSCULAR VOLUME 85.1 fl (80.0-96.0); PLATELET COUNT, AUTOMATED 279 10^3/uL (150-450); RED BLOOD COUNT 3.22 10^6/uL (4.30-6.10); WHITE BLOOD COUNT 5.9 10^3/uL (4.0-10.0)
[2019-10-10 06:25] LABS: ALBUMIN 2.2 GM/DL (3.2-5.2); ALT/SGPT 19 U/L (12-78); BILIRUBIN,TOTAL 0.7 MG/DL (0.2-1.0); BLOOD UREA NITROGEN 19 MG/DL (7-18); CALCIUM LEVEL 8.6 MG/DL (8.8-10.2); CARBON DIOXIDE LEVEL 32 MEQ/L (21-32); CHLORIDE LEVEL 100 MEQ/L (98-107); CREATININE FOR GFR 1.09 MG/DL (0.70-1.30); GLOMERULAR FILTRATION RATE > 60.0 (>35); GLUCOSE, FASTING 120 MG/DL (70-100); POTASSIUM SERUM 3.3 MEQ/L (3.5-5.1); SODIUM LEVEL 135 MEQ/L (136-145); TOTAL PROTEIN 6.7 GM/DL (6.4-8.2)
[2019-10-10] MEDS ORDERED: POTASSIUM CHLORIDE 10 MEQ SR TABLET PO ONE (07:15)
[2019-10-10 07:28] LABS: MAGNESIUM LEVEL 1.9 MG/DL (1.8-2.4)
--- NOTE | 2019-10-10 07:48 | IPNPDOC ---
Text Note Date of Service The patient was seen on 10/09/19. NOTE S: Patient seen and examined at bedside. No new medical complaints this morning. O: PHYSICAL EXAMINATION: VITAL SIGNS: See below General : NAD, lying comfortably in bed, elderly HEENT: NC/AT, EOMI Lungs: CTA B/L Heart: +S1S2, RRR Abd: soft, NT, +BS Ext: trace edema ASSESSMENT: 84 yo male with extensive medical history for melena. #melena - resolved - d/w dr. rodriguez, dr. tilley - no scopes - resumed 2 gram sodium/carb consistent diet - PO protonix BID - transfuse if Hgb <8 #decompensated congestive heart failure with systolic and diastolic dysfunction - acute on chronic - iv lasix - BNP trending down - I/O's, daily weight #afib/flutter - will continue DOAC for now #HTN - daughter states typically SBP 100 - continue home Rx for now #INFLAMMATORY ARTHRITIS; POSITIVE NASRA #BPPV #BPH #PACEMAKER 11/2017 - DR. 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 DIFF IN 08/2019 #Metastatic well-differentiated PNET, grade 2, status post 06/24/2019 liver biopsy with 3 cm pancreatic body mass, multifocal enhancing liver lesions, and with CT and octreotide scans correlating in terms of extent of disease. Normal CA19-9, elevated chromogranin A. #Carcinoid symptoms of hot flashes and flushing, occasional loose stool. #Bilateral small pleural effusions without uptake on PET 06/09/2019. #Systolic and diastolic heart failure, LVEF 45% on 10/2017 echocardiogram. #Paroxysmal atrial fibrillation on amiodarone. #Status post pacemaker. #Type 2 diabetes. Dispo: check O2 sats on room air with ambulation VS,Fishbone, I+O VS, Fishbone, I+O Laboratory Tests 10/10/19 05:36 Vital Signs Date Time Temp Pulse Resp B/P (MAP) Pulse Ox O2 Delivery O2 Flow Rate FiO2 10/10/19 04:00 1.0 10/10/19 04:00 97.0 86 18 112/58 (76) 96 Nasal Cannula I&O- Last 24 Hours up to 6 AM 10/10/19 06:00 Intake Total 1010 ml Output Total 2300 ml Balance -1290 ml ANI KELLY MD Oct 10, 2019 07:48
[2019-10-10] MEDS: allopurinoL 100 MG TAB PO SCH (07:58)
[2019-10-10] MEDS: HumaLOG INSULIN (NovoLOG) PER UNIT SC SCH ×4 (07:58→20:31)
[2019-10-10] MEDS: SUCRALFATE 1 GM TAB PO SCH ×4 (07:58→20:31)
[2019-10-10] MEDS: PANTOPRAZOLE 40MG TAB (PROTONIX) PO SCH ×2 (07:59→20:30)
[2019-10-10 08:00] VITALS: BP 105/59
[2019-10-10] MEDS: APIXABAN 5 MG TAB (ELIQUIS) PO SCH ×2 (08:00→20:31)
[2019-10-10] MEDS: AMIODARONE 200 MG TAB (PACERONE) PO SCH (08:00)
[2019-10-10 12:00] VITALS: BP 105/58
[2019-10-10 16:00] VITALS: BP 104/57
[2019-10-10 20:00] VITALS: BP 105/59
[2019-10-10] MEDS: FINASTERIDE 5 MG TAB PO SCH (20:31)
[2019-10-10 23:59] VITALS: BP 108/58
[2019-10-11 04:00] VITALS: BP 108/59
[2019-10-11] MEDS: FUROSEMIDE 20 MG/2 ML VIAL (J1940) IV SCH ×3 (04:05→20:11)
[2019-10-11] MEDS: SLF 3 ML SYR IV SCH ×3 (05:47→20:12)
[2019-10-11 05:50] LABS: HEMATOCRIT 27.2 % (42.0-52.0); HEMOGLOBIN 8.4 g/dl (13.5-17.5); MEAN CORPUSCULAR HEMOGLOBIN 25.9 pg (27.0-33.0); MEAN CORPUSCULAR HGB CONC 30.9 g/dl (32.0-36.5); PLATELET COUNT, AUTOMATED 297 10^3/uL (150-450); RED BLOOD COUNT 3.24 10^6/uL (4.30-6.10); WHITE BLOOD COUNT 6.2 10^3/uL (4.0-10.0)
[2019-10-11 06:17] LABS: ALBUMIN 2.2 GM/DL (3.2-5.2); ALT/SGPT 18 U/L (12-78); BILIRUBIN,TOTAL 0.5 MG/DL (0.2-1.0); BLOOD UREA NITROGEN 25 MG/DL (7-18); CALCIUM LEVEL 8.2 MG/DL (8.8-10.2); CARBON DIOXIDE LEVEL 32 MEQ/L (21-32); CHLORIDE LEVEL 102 MEQ/L (98-107); CREATININE FOR GFR 1.16 MG/DL (0.70-1.30); GLOMERULAR FILTRATION RATE > 60.0 (>35); GLUCOSE, FASTING 132 MG/DL (70-100); POTASSIUM SERUM 3.8 MEQ/L (3.5-5.1); SODIUM LEVEL 138 MEQ/L (136-145); TOTAL PROTEIN 6.8 GM/DL (6.4-8.2)
[2019-10-11 08:00] VITALS: BP 102/56
[2019-10-11] MEDS: AMIODARONE 200 MG TAB (PACERONE) PO SCH (08:17)
[2019-10-11] MEDS: APIXABAN 5 MG TAB (ELIQUIS) PO SCH ×2 (08:17→20:11)
[2019-10-11] MEDS: PANTOPRAZOLE 40MG TAB (PROTONIX) PO SCH ×2 (08:17→20:11)
[2019-10-11] MEDS: SUCRALFATE 1 GM TAB PO SCH ×4 (08:17→20:11)
[2019-10-11] MEDS: allopurinoL 100 MG TAB PO SCH (08:17)
[2019-10-11] MEDS: HumaLOG INSULIN (NovoLOG) PER UNIT SC SCH ×4 (08:17→20:12)
--- NOTE | 2019-10-11 09:12 | IPNPDOC ---
Text Note Date of Service The patient was seen on 10/10/19. NOTE S: Patient seen and examined at bedside. No new medical complaints this morning. O: PHYSICAL EXAMINATION: VITAL SIGNS: See below General : NAD, lying comfortably in bed, elderly HEENT: NC/AT, EOMI Lungs: CTA B/L Heart: +S1S2, RRR Abd: soft, NT, +BS Ext: trace edema ASSESSMENT: 84 yo male with extensive medical history for melena. #melena - no BM while in hospital yet - d/w dr. rodriguez, dr. tilley - no scopes - resumed 2 gram sodium/carb consistent diet - PO protonix BID - transfuse if Hgb <8 #decompensated congestive heart failure with systolic and diastolic dysfunction - acute on chronic - iv lasix - BNP trending down - I/O's, daily weight - wean O2 - Systolic and diastolic heart failure, LVEF 45% on 10/2017 echocardiogram. #afib/flutter - on amiodarone - will continue DOAC for now #HTN - daughter states typically SBP 100 - continue home Rx for now #INFLAMMATORY ARTHRITIS - POSITIVE NASRA #BPPV #BPH #arrhythmia - s/p PPM 11/2017 - DR. 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 DIFF IN 08/2019 #Metastatic well-differentiated PNET, grade 2 - s/p 06/24/2019 liver biopsy with 3 cm pancreatic body mass - multifocal enhancing liver lesions - CT and octreotide scans correlating in terms of extent of disease #Carcinoid symptoms of hot flashes and flushing, occasional loose stool. Dispo: continue PT, wean O2, IV diuresis, anticipate discharge in 24 hours, with home services VS,Erwin, I+O VS, Erwin, I+O Laboratory Tests 10/11/19 05:34 Vital Signs Date Time Temp Pulse Resp B/P (MAP) Pulse Ox O2 Delivery O2 Flow Rate FiO2 10/11/19 08:00 96.6 85 18 102/56 (71) 98 Nasal Cannula 1.0 I&O- Last 24 Hours up to 6 AM 10/11/19 06:00 Intake Total 1820 ml Output Total 1825 ml Balance -5 ml ANI KELLY MD Oct 11, 2019 09:12
--- NOTE | 2019-10-11 09:18 | IPNPDOC ---
Text Note Date of Service The patient was seen on 10/11/19. NOTE S: Patient seen and examined at bedside. No new medical complaints this morning. Was short of breath during ambulation, but maintained adequate O2 sats. O: PHYSICAL EXAMINATION: VITAL SIGNS: See below General : NAD, sitting comfortably in chair, elderly HEENT: NC/AT, EOMI, nasal cannula in place Lungs: CTA B/L Heart: +S1S2, RRR Abd: soft, NT, +BS Ext: trace edema ASSESSMENT: 84 yo male with extensive medical history, admitted for melena, hospital stay complicated with acute/chronic decompensated congestive heart failure. #melena - no BM while in hospital yet - d/w dr. rodriguez, dr. tilley - no scopes - resumed 2 gram sodium/carb consistent diet - PO protonix BID - transfuse if Hgb <8 #decompensated congestive heart failure with systolic and diastolic dysfunction - acute on chronic - iv lasix - BNP trending down - I/O's, daily weight - wean O2 - Systolic and diastolic heart failure, LVEF 45% on 10/2017 echocardiogram - repeat echo pending #afib/flutter - on amiodarone - will continue DOAC for now #HTN - daughter states typically SBP 100 - continue home Rx for now #INFLAMMATORY ARTHRITIS - POSITIVE NASRA #BPPV #BPH #arrhythmia - s/p PPM 11/2017 - DR. 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 DIFF IN 08/2019 #Metastatic well-differentiated PNET, grade 2 - s/p 06/24/2019 liver biopsy with 3 cm pancreatic body mass - multifocal enhancing liver lesions - CT and octreotide scans correlating in terms of extent of disease #Carcinoid symptoms of hot flashes and flushing, occasional loose stool. Dispo: continue PT, wean O2, IV diuresis, home services VS,Fishbone, I+O VS, Fishbone, I+O Laboratory Tests 10/11/19 05:34 Vital Signs Date Time Temp Pulse Resp B/P (MAP) Pulse Ox O2 Delivery O2 Flow Rate FiO2 10/11/19 08:00 96.6 85 18 102/56 (71) 98 Nasal Cannula 1.0 I&O- Last 24 Hours up to 6 AM 10/11/19 06:00 Intake Total 1820 ml Output Total 1825 ml Balance -5 ml ANI KELLY MD Oct 11, 2019 09:18
[2019-10-11 12:00] VITALS: BP 106/58
[2019-10-11 16:00] VITALS: BP 118/61
[2019-10-11 20:00] VITALS: BP 112/62
[2019-10-11] MEDS: FINASTERIDE 5 MG TAB PO SCH (20:11)
[2019-10-11] MEDS: ONDANSETRON 4MG/2ML VIAL (J2405) IV PRN (20:11)
[2019-10-12] VITALS: BP 113/64
[2019-10-12 04:00] VITALS: BP 116/56
[2019-10-12] MEDS: ONDANSETRON 4MG/2ML VIAL (J2405) IV PRN (04:35)
[2019-10-12] MEDS: FUROSEMIDE 20 MG/2 ML VIAL (J1940) IV SCH ×3 (04:35→20:38)
[2019-10-12] MEDS: SLF 3 ML SYR IV SCH ×3 (04:35→20:39)
[2019-10-12] MEDS: SUCRALFATE 1 GM TAB PO SCH ×4 (07:44→20:38)
[2019-10-12] MEDS: HumaLOG INSULIN (NovoLOG) PER UNIT SC SCH ×4 (07:45→20:45)
[2019-10-12 07:46] LABS: HEMATOCRIT 27.5 % (42.0-52.0); HEMOGLOBIN 8.5 g/dl (13.5-17.5); MEAN CORPUSCULAR HEMOGLOBIN 25.8 pg (27.0-33.0); MEAN CORPUSCULAR HGB CONC 30.9 g/dl (32.0-36.5); MEAN CORPUSCULAR VOLUME 83.6 fl (80.0-96.0); PLATELET COUNT, AUTOMATED 307 10^3/uL (150-450); RED BLOOD COUNT 3.29 10^6/uL (4.30-6.10); WHITE BLOOD COUNT 7.4 10^3/uL (4.0-10.0)
[2019-10-12 08:00] VITALS: BP 108/55
[2019-10-12 08:05] LABS: BLOOD UREA NITROGEN 26 MG/DL (7-18); CALCIUM LEVEL 7.9 MG/DL (8.8-10.2); CARBON DIOXIDE LEVEL 32 MEQ/L (21-32); CHLORIDE LEVEL 98 MEQ/L (98-107); CREATININE FOR GFR 1.14 MG/DL (0.70-1.30); GLOMERULAR FILTRATION RATE > 60.0 (>35); GLUCOSE, FASTING 156 MG/DL (70-100); POTASSIUM SERUM 3.8 MEQ/L (3.5-5.1); SODIUM LEVEL 136 MEQ/L (136-145)
[2019-10-12] MEDS: allopurinoL 100 MG TAB PO SCH (08:35)
[2019-10-12] MEDS: APIXABAN 5 MG TAB (ELIQUIS) PO SCH ×2 (08:35→20:38)
[2019-10-12] MEDS: AMIODARONE 200 MG TAB (PACERONE) PO SCH (08:35)
[2019-10-12] MEDS: PANTOPRAZOLE 40MG TAB (PROTONIX) PO SCH ×2 (08:35→20:38)
[2019-10-12 12:00] VITALS: BP 107/55
[2019-10-12 16:00] VITALS: BP 122/60
--- NOTE | 2019-10-12 18:51 | REP ---
Nickel: Abdominal pain. Technique: Single supine view of the abdomen and pelvis. Findings: No evidence for bowel obstruction or perforation. Mild fecal stasis cannot be excluded. Surgical changes in the pelvis noted. Skeletal structures demonstrate degenerative changes primarily involving the visualized lumbosacral spine. Atherosclerotic disease of the iliac arteries noted. Impression: Nonspecific bowel gas pattern. Electronically Signed by Jim Wright MD 10/12/2019 06:42 P
[2019-10-12 18:59] LABS: ALBUMIN 2.2 GM/DL (3.2-5.2); BILIRUBIN,TOTAL 0.5 MG/DL (0.2-1.0); CALCIUM LEVEL 8.2 MG/DL (8.8-10.2); CREATININE FOR GFR 1.22 MG/DL (0.70-1.30); POTASSIUM SERUM 4.2 MEQ/L (3.5-5.1); TOTAL PROTEIN 6.4 GM/DL (6.4-8.2)
[2019-10-12] MEDS ORDERED: FUROSEMIDE 20 MG/2 ML VIAL (J1940) IV ONE (19:30)
[2019-10-12 20:00] VITALS: BP 118/58
[2019-10-12] MEDS: FINASTERIDE 5 MG TAB PO SCH (20:38)
[2019-10-12] MEDS: MOM 30ML SUSPENSION UDC PO PRN (21:44)
[2019-10-12] MEDS: DOCUSATE SODIUM 100 MG CAP PO PRN (21:44)
[2019-10-13] VITALS: BP 117/59
[2019-10-13] MEDS: FUROSEMIDE 20 MG/2 ML VIAL (J1940) IV SCH ×3 (03:50→20:42)
[2019-10-13] MEDS: SLF 3 ML SYR IV SCH ×3 (03:51→20:43)
[2019-10-13 04:00] VITALS: BP 107/59
[2019-10-13 05:45] LABS: HEMATOCRIT 26.5 % (42.0-52.0); HEMOGLOBIN 8.4 g/dl (13.5-17.5); MEAN CORPUSCULAR HEMOGLOBIN 26.3 pg (27.0-33.0); MEAN CORPUSCULAR HGB CONC 31.7 g/dl (32.0-36.5); MEAN CORPUSCULAR VOLUME 82.8 fl (80.0-96.0); PLATELET COUNT, AUTOMATED 300 10^3/uL (150-450)
--- NOTE | 2019-10-13 05:56 | ECHO ---
DATE OF PROCEDURE: 10/12/2019 AGE: 84 GENDER: Male HEIGHT: 74 inches WEIGHT: 196 pounds BODY SURFACE AREA: 2.16 sq m INPATIENT: PCU room 3215. REFERRING PHYSICIAN: Dr. Cole Clevleand INDICATION: Congestive heart failure (CHF). MEASUREMENTS: 2D measurements: RV: 5.2 cm LV: 7.3 cm Septum: 1.0 cm Posterior wall: 1.0 cm Aortic root: 3.3 cm LA: 5.4 cm LVEF: 25-30% Doppler measurements: AV: 1.64 m/s LVOT: 0.92 m/s MV-E: 101 A: 57 EA ratio: 1.8 Early mitral deceleration time: 88 ms E prime medial: 4 A prime medial: 4 E prime lateral: 7.6 PCWP: 18.4 mmHg PV: 0.4 m/s Pulmonary artery acceleration time: 67 ms RVSP: 65 mmHg IVC: 2.85 cm COMMENTS: Consistent AV sequentially paced rhythm. Paced QRS complexes with left bundle branch block (LBBB) configuration. M-mode and two-dimensional echocardiography was performed with pulsed, continuous wave, color flow, and tissue Doppler studies. Prominently dilated left ventricle with normal wall thickness. Paradoxical septal wall motion and apical akinesis in keeping with right ventricular pacing as well as right ventricular pressure overload. Preserved inferolateral wall but hypokinesis of the anterior, inferior, and lateral wayne. Severe impairment of resting global left ventricular systolic function. Prominently dilated left atrium with grade 2 left ventricle (LV) diastolic dysfunction and currently elevated estimated mean left atrial pressure. At least moderately dilated right heart chambers with preserved right ventricular wall motion yet severe pulmonary hypertension. Prominently dilated IVC with absent respiratory collapse in keeping with an elevated central venous pressure of 20 mmHg or more. Normal aortic root size. Mild aortic valvular sclerosis without stenosis and only mild insufficiency. Mild degenerative changes of the mitral valvular apparatus without inflow tract obstruction but at least moderate mitral insufficiency. Normal appearing tricuspid valve with moderately severe insufficiency. Pacing leads could be visualized traversing right heart structures but no separate intracardiac mass. No pericardial effusion. Comparing today's study with examination October 2017, there has been significant deterioration in left ventricular systolic and diastolic function with increase in cardiac chamber sizes and worsening valvular function. Based on the above test findings his prognosis is very guarded. MTDD
[2019-10-13 06:05] LABS: BLOOD UREA NITROGEN 28 MG/DL (7-18); CALCIUM LEVEL 8.5 MG/DL (8.8-10.2); CARBON DIOXIDE LEVEL 33 MEQ/L (21-32); CHLORIDE LEVEL 94 MEQ/L (98-107); CREATININE FOR GFR 1.13 MG/DL (0.70-1.30); GLOMERULAR FILTRATION RATE > 60.0 (>35); GLUCOSE, FASTING 146 MG/DL (70-100); MAGNESIUM LEVEL 2.2 MG/DL (1.8-2.4); POTASSIUM SERUM 3.5 MEQ/L (3.5-5.1); SODIUM LEVEL 134 MEQ/L (136-145)
[2019-10-13 08:00] VITALS: BP 107/56
[2019-10-13] MEDS: allopurinoL 100 MG TAB PO SCH (09:20)
[2019-10-13] MEDS: APIXABAN 5 MG TAB (ELIQUIS) PO SCH ×2 (09:20→20:42)
[2019-10-13] MEDS: SUCRALFATE 1 GM TAB PO SCH ×4 (09:20→20:42)
[2019-10-13] MEDS: AMIODARONE 200 MG TAB (PACERONE) PO SCH (09:20)
[2019-10-13] MEDS: PANTOPRAZOLE 40MG TAB (PROTONIX) PO SCH ×2 (09:20→20:42)
[2019-10-13] MEDS: HumaLOG INSULIN (NovoLOG) PER UNIT SC SCH ×4 (09:21→20:48)
[2019-10-13] MEDS ORDERED: ISOVUE-370 76% 100ML VIAL (Q9967) As Ordered ONE (11:48)
[2019-10-13 12:00] VITALS: BP 104/60
--- NOTE | 2019-10-13 12:23 | REP ---
Clinical: Right lower quadrant pain. History of metastatic pancreatic cancer. Technique: Axial contrast enhanced images from the lung bases to the pubic symphysis with coronal and sagittal re-formations using 100 ml Isovue 370 intravenous contrast material. Comparison: 05/25/2019. Findings: Moderate bilateral pleural effusions and bibasilar atelectasis along with cardiomegaly noted. Innumerable hepatic metastases may be slightly increased from prior examination. Spleen, bilateral adrenal glands, and kidneys appear essentially normal/stable. Incidental 2 mm nonobstructing left renal calculus again identified. Pancreas is essentially unchanged in appearance. The gallbladder is moderately dilated with mild gallbladder wall thickening and trace pericholecystic fluid cannot be excluded. The enteric system demonstrates moderate fecal stasis and colonic diverticulosis without obstruction or obvious acute inflammatory process. Evidence for prior partial sigmoid resection and anastomoses in the pelvis along with evidence for ventral hernia repair appear unchanged. Further evaluation of the pelvis demonstrates normal bladder and age appropriate prostate/seminal vesicles. Small amount of ascites in the right perihepatic space is appreciated. Atherosclerotic changes to the aorta and vasculature noted without aneurysm or dissection. Musculoskeletal structures demonstrate osteopenia and degenerative changes. Impression: 1. Hepatic metastasis may be slightly increased from prior examination. 2. The gallbladder is moderately distended with mild gallbladder wall thickening and trace pericholecystic fluid as well as small amount of perihepatic fluid. Correlation with ultrasound to exclude acute cholecystitis may be warranted. 3. Further nonacute findings as described above including 2 mm nonobstructing left renal calculus, colonic diverticulosis and fecal stasis. Electronically Signed by Jim Wright MD 10/13/2019 12:13 P
--- NOTE | 2019-10-13 12:48 | IPNPDOC ---
Subjective Date Seen The patient was seen on 10/13/19. Subjective Chief Complaint/HPI Ambulating w/o complaints of SOB. No blood in stool. C/o RLQ abd pain. No BM yet, but passing flatus Objective Physical Examination General Exam: Positive: Alert Eye Exam: Positive: PERRLA, EOMI; Negative: Sclera icteric ENT Exam: Positive: Mucous membr. moist/pink Neck Exam: Negative: JVD Chest Exam: Positive: Clear to auscultation Abdomen Exam: Positive: Normal bowel sounds, Tenderness (RLQ tenderness to palpation) Extremity Exam: Positive: Normal pulses; Negative: Clubbing, Cyanosis, Edema Skin Exam: Positive: Nl turgor and temperature; Negative: Rash Psych Exam: Positive: Mental status NL, Mood NL Assessment /Plan Assessment # Melena - hgb remains stable - d/w dr. rodriguez, dr. 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 - iv lasix 20 mg tid for another 24 hours then change to home lasix dosing - Echo reviewed and shows LVEF 20-25% # Chronic atrial fib - on amiodarone and eliquis # HTN - daughter states typically SBP 100 - continue home Rx for now # DARYL - intolerant to CPAP due to PTSD # DM2 controlled - sliding scale # Metastatic well-differentiated PNET, grade 2 - s/p 06/24/2019 liver biopsy with 3 cm pancreatic body mass - multifocal enhancing liver lesions - CT and octreotide scans correlating in terms of extent of disease #Carcinoid symptoms of hot flashes and flushing, occasional loose stool. Dispo: transfer to med/surg. D/w daughterNatalee over the phone Plan/VTE VTE Prophylaxis Ordered?: Yes (eliquis) VTE Exclusion Mechanical Proph: N/A:VTE Prophy Ordered VTE Exclusion Pharmacological: N/A:VTE Prophy Ordered VS, I&O, 24H, Fishbone Vital Signs/I&O Vital Signs Date Time Temp Pulse Resp B/P (MAP) Pulse Ox O2 Delivery O2 Flow Rate FiO2 10/13/19 08:00 98.0 76 20 107/56 (73) 95 Nasal Cannula 0.5 I&O- Last 24 Hours up to 6 AM 10/13/19 06:00 Intake Total 1150 ml Output Total 1250 ml Balance -100 ml Laboratory Data 24H LABS Laboratory Tests 2 10/12/19 17:28: Bedside Glucose (Misc Panel) 130H 10/12/19 18:21: Anion Gap 4L, Glomerular Filtration Rate 60.0, Lactic Acid Level 1.8, Calcium Level 8.2L, Total Bilirubin 0.5, Aspartate Amino Transf (AST/SGOT) 21, Alanine Aminotransferase (ALT/SGPT) 17, Alkaline Phosphatase 180H, Total Protein 6.4, Albumin 2.2L, Albumin/Globulin Ratio 0.52L, Lipase 128 10/13/19 05:32: Anion Gap 7L, Glomerular Filtration Rate > 60.0, Calcium Level 8.5L, Nucleated Red Blood Cells % (auto) 0.0, Magnesium Level 2.2 10/13/19 12:08: Bedside Glucose (Misc Panel) 113H CBC/BMP Laboratory Tests 10/12/19 18:21 10/13/19 05:32 Microbiology Microbiology 10/07/19 Blood Culture - Final, Complete NO GROWTH AFTER 5 DAYS 10/07/19 Respiratory Virus Panel (PCR) (BRITTANY) - Final, Complete 10/07/19 Blood Culture - Final, Complete NO GROWTH AFTER 5 DAYS ARIANA DECKER MD Oct 13, 2019 12:48
[2019-10-13 15:10] VITALS: BP 113/66
[2019-10-13] MEDS: DOCUSATE SODIUM 100 MG CAP PO PRN (15:18)
[2019-10-13] MEDS: MOM 30ML SUSPENSION UDC PO PRN (15:18)
[2019-10-13] MEDS: MORPHINE 2 MG/ML 1ML VIAL (J2270) IV PRN (18:27)
[2019-10-13] MEDS: FINASTERIDE 5 MG TAB PO SCH (20:42)
[2019-10-13 22:00] VITALS: BP 108/64
[2019-10-14] MEDS: FUROSEMIDE 20 MG/2 ML VIAL (J1940) IV SCH ×2 (03:37→12:24)
[2019-10-14] MEDS: SLF 3 ML SYR IV SCH ×3 (03:37→21:54)
[2019-10-14 06:00] VITALS: BP 112/70
[2019-10-14] MEDS: allopurinoL 100 MG TAB PO SCH (08:08)
[2019-10-14] MEDS: APIXABAN 5 MG TAB (ELIQUIS) PO SCH (08:08)
[2019-10-14] MEDS: SUCRALFATE 1 GM TAB PO SCH ×4 (08:08→21:53)
[2019-10-14] MEDS: PANTOPRAZOLE 40MG TAB (PROTONIX) PO SCH ×2 (08:08→21:53)
[2019-10-14] MEDS: AMIODARONE 200 MG TAB (PACERONE) PO SCH (08:08)
[2019-10-14] MEDS: HumaLOG INSULIN (NovoLOG) PER UNIT SC SCH ×4 (08:09→21:00)
[2019-10-14] MEDS ORDERED: FLEET OIL RETENTION ENEMA PR PRN (09:00)
[2019-10-14 09:23] LABS: CALCIUM LEVEL 7.9 MG/DL (8.8-10.2); CREATININE FOR GFR 1.27 MG/DL (0.70-1.30); GLOMERULAR FILTRATION RATE 57.2 (>35); MAGNESIUM LEVEL 2.4 MG/DL (1.8-2.4)
[2019-10-14 14:00] VITALS: BP 95/55
[2019-10-14 14:30] VITALS: BP 98/58
--- NOTE | 2019-10-14 14:49 | IPNPDOC ---
Subjective Date Seen The patient was seen on 10/14/19. Subjective Chief Complaint/HPI Marcus is c/o right sided abd pain, although he reports it is less intense then yesterday. He is not experiencing any vomiting/nausea. His breathing is improved w/o orthopnea or labored breathing at rest, no chest discomfort Objective Physical Examination General Exam: Positive: Alert Eye Exam: Positive: PERRLA, EOMI; Negative: Sclera icteric ENT Exam: Positive: Mucous membr. moist/pink Neck Exam: Negative: JVD Chest Exam: Positive: Clear to auscultation Abdomen Exam: Positive: Normal bowel sounds, Tenderness (RLQ + RUQ tenderness to palpation) Extremity Exam: Positive: Normal pulses; Negative: Clubbing, Cyanosis, Edema Skin Exam: Positive: Nl turgor and temperature; Negative: Rash Psych Exam: Positive: Mental status NL, Mood NL Assessment /Plan Assessment # Melena - hgb remains stable - d/w dr. rodriguez, dr. 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 - has moderated sided b/l pleural effusion on CT scan, can decrease iv lasix 20 mg bid for mild hyponatremia - Echo reviewed and shows LVEF 20-25% Right-sided abd pain - may be 2/2 dilated GB, obtain RUQ ULS to r/o acute on chronic cholecystitis - surgical consult, patient is not a surgical candidate with his comorbid conditions, but may warrant percutaneous cholecystostomy # Chronic atrial fib - on amiodarone and eliquis, will hold eliquis in case procedure warranted # HTN - daughter states typically SBP 100 - continue home Rx for now # DARYL - intolerant to CPAP due to PTSD # DM2 diet controlled (A1c 7.1%) - sliding scale # Metastatic well-differentiated PNET, grade 2 - s/p 06/24/2019 liver biopsy with 3 cm pancreatic body mass - multifocal enhancing liver lesions - CT and octreotide scans correlating in terms of extent of disease #Carcinoid symptoms of hot flashes and flushing, occasional loose stool. Plan/VTE VTE Prophylaxis Ordered?: Yes (eliquis) VTE Exclusion Mechanical Proph: N/A:VTE Prophy Ordered VTE Exclusion Pharmacological: N/A:VTE Prophy Ordered VS, I&O, 24H, Fishbone Vital Signs/I&O Vital Signs Date Time Temp Pulse Resp B/P (MAP) Pulse Ox O2 Delivery O2 Flow Rate FiO2 10/14/19 14:00 98.6 84 12 95/55 (68) 97 Nasal Cannula 10/13/19 08:00 0.5 I&O- Last 24 Hours up to 6 AM 10/14/19 06:00 Intake Total 1140 ml Output Total 1625 ml Balance -485 ml Laboratory Data 24H LABS Laboratory Tests 2 10/13/19 16:13: Bedside Glucose (Misc Panel) 134H 10/13/19 20:45: Bedside Glucose (Misc Panel) 116H 10/14/19 05:51: Bedside Glucose (Misc Panel) 122H 10/14/19 08:24: Anion Gap 6L, Glomerular Filtration Rate 57.2, Calcium Level 7.9L, Magnesium Level 2.4 10/14/19 11:20: Bedside Glucose (Misc Panel) 139H CBC/BMP Laboratory Tests 10/14/19 08:24 Microbiology Microbiology 10/07/19 Blood Culture - Final, Complete NO GROWTH AFTER 5 DAYS 10/07/19 Respiratory Virus Panel (PCR) (BRITTANY) - Final, Complete 10/07/19 Blood Culture - Final, Complete NO GROWTH AFTER 5 DAYS ARIANA DECKER MD Oct 14, 2019 14:49
[2019-10-14] MEDS: AMPICILLIN SOD/SULBACTAM SOD 3 GM in D5W MINI-BAG PLUS 100 ML IV SCH (17:08)
[2019-10-14] MEDS: FINASTERIDE 5 MG TAB PO SCH (21:53)
[2019-10-14 22:00] VITALS: BP 118/59
[2019-10-15] MEDS ORDERED: FUROSEMIDE 20 MG/2 ML VIAL (J1940) IV SCH
[2019-10-15] MEDS: AMPICILLIN SOD/SULBACTAM SOD 3 GM in D5W MINI-BAG PLUS 100 ML IV SCH ×4 (00:19→23:07)
[2019-10-15] MEDS: ONDANSETRON 4MG/2ML VIAL (J2405) IV PRN (00:26)
[2019-10-15] MEDS: MORPHINE 2 MG/ML 1ML VIAL (J2270) IV PRN (00:27)
[2019-10-15] MEDS: SLF 3 ML SYR IV SCH ×3 (05:31→20:36)
[2019-10-15 06:00] VITALS: BP 108/68
[2019-10-15 06:31] LABS: HEMATOCRIT 27.2 % (42.0-52.0); HEMOGLOBIN 8.4 g/dl (13.5-17.5); MEAN CORPUSCULAR HEMOGLOBIN 25.6 pg (27.0-33.0); MEAN CORPUSCULAR HGB CONC 30.9 g/dl (32.0-36.5); MEAN CORPUSCULAR VOLUME 82.9 fl (80.0-96.0); PLATELET COUNT, AUTOMATED 389 10^3/uL (150-450); RED BLOOD COUNT 3.28 10^6/uL (4.30-6.10); WHITE BLOOD COUNT 10.4 10^3/uL (4.0-10.0)
[2019-10-15 06:50] LABS: CALCIUM LEVEL 8.8 MG/DL (8.8-10.2); CREATININE FOR GFR 1.26 MG/DL (0.70-1.30); GLOMERULAR FILTRATION RATE 57.8 (>35); MAGNESIUM LEVEL 2.5 MG/DL (1.8-2.4); POTASSIUM SERUM 3.6 MEQ/L (3.5-5.1)
[2019-10-15] MEDS: AMIODARONE 200 MG TAB (PACERONE) PO SCH (07:46)
[2019-10-15] MEDS: allopurinoL 100 MG TAB PO SCH (07:46)
[2019-10-15] MEDS: SUCRALFATE 1 GM TAB PO SCH ×4 (07:46→20:36)
[2019-10-15] MEDS: PANTOPRAZOLE 40MG TAB (PROTONIX) PO SCH ×2 (07:46→20:36)
[2019-10-15] MEDS: HumaLOG INSULIN (NovoLOG) PER UNIT SC SCH ×4 (07:47→20:30)
[2019-10-15] MEDS: MOM 30ML SUSPENSION UDC PO PRN (07:51)
[2019-10-15] MEDS: DOCUSATE SODIUM 100 MG CAP PO PRN (07:51)
[2019-10-15] MEDS: FUROSEMIDE 20 MG TAB PO SCH (09:47)
--- NOTE | 2019-10-15 11:05 | CR.PDOC ---
General Surgery Consultation Date of Consultation 10/15/19 History and Physical CONSULT REPORT FOR: Jesse Allison (hospitalist service) REASON FOR CONSULTATION: right side abdominal pain possible acute cholecystitis HISTORY OF PRESENT ILLNESS: I was asked to help evaluate the patient's cause of his abdominal pain. In brief this is an 84-year-old gentleman admitted to the hospital on 10/07/2023 symptoms of melena acute GI bleed was treated conservatively and seems to have clinically stopped bleeding. His hemoglobin and hematocrit remaining stable now though remains anemic. He did not have any endoscopic studies performed due to his current state of health, rose that of his decompensated chf. He has a known diagnosis of metastatic PNET pancreatic tumor to the liver. The patient and his healthcare proxy, his daughter Natalee was interviewed. His daughter tells me he does have on and off bowel type crampy pain. He tells me he was in pain when he came to the hospital. The pain started roughly about 5 days ago. It initially started over the left lower quadrant area later on migrating localizing to the epigastric area and right side of his abdomen. He currently is having discomfort when touched periumbilically towards the right side and also the right lower quadrant and right upper quadrant area. He denies any nausea, vomiting or bloating but he does have a poor appetite. He denies any severe shortness of breath. No fevers or chills or being recorded. He denies any prior problems with his gallbladder with the liver. He came in with melena for the past 6 days has not had any bowel movements recorded and he is getting some bowel regimen which has not worked yet. PAST MEDICAL HISTORY: 1. As mentioned significant for metastatic PNET pancreatic tumor with associated carcinoid symptoms. He has paroxysmal atrial fibrillation with a pacemaker on amiodarone, on adequate doses an outpatient. He is off this for symptoms of GI bleed. He has diabetes. Recently had a bout of C. difficile colitis. PAST SURGICAL HISTORY: INCLUDES: 1. Abdominal surgeries include a prior sigmoid colon resection with an ostomy and subsequent reversal for diverticulitis and also an incisional hernia repair. ALLERGIES: Please see below. HOME MEDICATIONS: Please see below. REVIEW OF SYSTEMS: GENERAL: Patient as patient has been hospitalized for about 9 days now. Reports weakness aches and pains, poor appetite. He denies fevers or chills. HEENT: Denies any history of jaundice. CARDIOVASCULAR: Significant for most recently being diagnosed with decompensated heart failure on top of chronic congestive heart failure. He denies any ongoing anginal symptoms. He denies any shortness of breath MUSCULOSKELETAL: Reports feeling weak. SKIN: No jaundice. NEUROLOGIC: Denies any history of stroke. ENDOCRINE: Patient with history of diabetes. HEMATOLOGY/ONCOLOGY: Patient with metastatic PNET pancreatic tumor to the liver PULMONARY: Patient has oxygen, denies shortness of breath. GASTROINTESTINAL: Reports pain. GENITOURINARY: [Denies dysuria, frequency, hematuria and nocturia]. INFECTIOUS: Recent diagnosis of C. difficile colitis was treated with vancomycin by mouth no longer having diarrhea. He does have carcinoid symptoms of flushing and loose stools. NUTRITION: Reports poor appetite. PHYSICAL EXAMINATION: VITALS SIGNS: Please see below. GENERAL APPEARANCE: Patient seen in bed, looks stated age does not seem to be in any acute distress. He has a nasal cannula for O2 supplementation. SKIN: Warm and dry, no jaundice. HEENT: Mild pink palpebral conjunctiva. Lips appear dry. NECK: [Supple, no thyromegaly. No obvious jugular venous distention]. LUNGS: [Clear to auscultation bilaterally. No wheezing appreciated]. HEART: He has a pacemaker left anterior chest regular heart rate and rhythm. ABDOMEN: Patient is slightly protuberant abdomen, mildly distended, relatively thin abdominal wall his hernia. Prior lower midline incision and left side colostomy incision. He is quite tender to palpation right upper quadrant but this also extends to the right periumbilical area. He also has some distinct tenderness over the left lower quadrant area. He has more guarding towards the right side of the abdomen. Tympanitic to percussion. EXTREMITIES: Positive varicosities, mild pedal edema ANCILLARIES: . LABORATORY DATA: Please see below. IMAGING STUDIES: . CT abdomen and pelvis 1. Hepatic metastasis may be slightly increased from prior examination. 2. The gallbladder is moderately distended with mild gallbladder wall thick ening and trace pericholecystic fluid as well as small amount of perihepatic fluid. Correlation with ultrasound to exclude acute cholecystitis may be warranted. 3. Further nonacute findings as described above including 2 mm nonobstructing left renal calculus, colonic diverticulosis and fecal stasis. IMPRESSION AND PLAN: right side abdominal pain possible acalculus cholecystitis differentials include liver congestion secondary to right side heart failure as evidenced by the latest echocardiogram which is a new finding. He has tenderness beyond the area of the gallbladder and daughter tells me he does have some mild aches and pains which she refers to as bowel crampy pain. His enlarged lymph nodes this is acute may also cause some tenderness or pain and certainly an element of ileus may be contributing. I reviewed the CT imaging studies and he does have some distended gallbladder and may be a faint pericholecystic edema. He is not eating well for a few days and this could contribute to the gallbladder being distended. I don't particularly his any stones within the gallbladder. would like to obtain hida scan which would have more specific finding for acute cholecystitis (nonvisualization) I have started him on antibiotics (unasyn) for cholecystitis preemptively. If it does show cystic duct obstruction on the HIDA scan, suggest arranging for percutaneous drainage or percutaneous cholecystostomy. I think some component of his pain may not be related to the gallbladder. given present state of health, he is high risk for general anesthesia and surgery and if not improved would consider placing a percutaneous cholecystostomy Patient over all has a poor prognosis given metastatic pnet pancreatic tumor Vital Signs Vital Signs Date Time Temp Pulse Resp B/P (MAP) Pulse Ox O2 Delivery O2 Flow Rate FiO2 10/15/19 00:27 16 Nasal Cannula 0.5 10/14/19 22:00 98.0 87 118/59 (78) 97 I&Os I&O- Last 24 Hours up to 6 AM 10/15/19 06:00 Intake Total 1020 ml Output Total 1000 ml Balance 20 ml Laboratory Data Labs 24H Laboratory Tests 2 10/14/19 05:51: Bedside Glucose (Misc Panel) 122H 10/14/19 08:24: Anion Gap 6L, Glomerular Filtration Rate 57.2, Calcium Level 7.9L, Magnesium Level 2.4 10/14/19 11:20: Bedside Glucose (Misc Panel) 139H 10/14/19 16:28: Bedside Glucose (Misc Panel) 117H 10/14/19 20:34: Bedside Glucose (Misc Panel) 110 CBC/BMP Laboratory Tests 10/14/19 08:24 Microbiology Microbiology 10/07/19 Blood Culture - Final, Complete NO GROWTH AFTER 5 DAYS 10/07/19 Respiratory Virus Panel (PCR) (BRITTANY) - Final, Complete 10/07/19 Blood Culture - Final, Complete NO GROWTH AFTER 5 DAYS Home Medications Scheduled Allopurinol (Allopurinol) 100 Mg Tablet, 100 MG PO DAILY, (Reported) PATIENT HAS BEEN OUT OF THIS MEDICATION Amiodarone HCl (Amiodarone HCl) 200 Mg Tablet, 200 MG PO DAILY, (Reported) Apixaban (Eliquis) 5 Mg Tab, 5 MG PO BID, (Reported) Cholecalciferol (Vitamin D3) (Vitamin D3) 2,000 Unit Tab.chew, 2,000 UNIT PO DAILY, (Reported) Finasteride (Finasteride) 5 Mg Tab, 5 MG PO QHS, (Reported) PATIENT HAS BEEN OUT OF THIS MEDICATION Furosemide (Furosemide) 20 Mg Tablet, 20 MG PO Q2D, (Reported) ALTERNATE WITH 40MG DOSE Furosemide (Furosemide) 20 Mg Tablet, 40 MG PO Q2D, (Reported) ALTERNATE WITH 20MG DOSE Jewell-3 Fatty Acids/Fish Oil (Jewell 3 1,000 mg Softgel) 1 Cap Cap, 1,000 MG PO DAILY, (Reported) Omeprazole (Omeprazole) 40 Mg Capsule.dr, 40 MG PO DAILY, (Reported) Sucralfate (Sucralfate) 1 Gm Tablet, 1 GRAM PO ACHS, (Reported) Allergies Coded Allergies: NSAIDS (Non-Steroidal Anti-Inflamma (Verified Allergy, Unknown, unknown, 12/28/18) sulfamethoxazole (Verified Allergy, Unknown, unknown, 12/28/18) trimethoprim (Verified Allergy, Unknown, unknown, 12/28/18) hydrocodone (Verified Adverse Reaction, Intermediate, nausea/vomiting/dizzy, 09/30/19) LUIS MCGINNIS MD Oct 15, 2019 01:28
--- NOTE | 2019-10-15 12:01 | IPNPDOC ---
Subjective Date Seen The patient was seen on 10/15/19. Subjective Chief Complaint/HPI has not had a bm, passing flatus. abd pain unchanged. Awaiting HIDA scan. Objective Physical Examination General Exam: Positive: Alert Eye Exam: Positive: PERRLA, EOMI; Negative: Sclera icteric ENT Exam: Positive: Mucous membr. moist/pink Neck Exam: Negative: JVD Chest Exam: Positive: Clear to auscultation Abdomen Exam: Positive: Normal bowel sounds, Tenderness (RLQ + RUQ tenderness to palpation) Extremity Exam: Positive: Normal pulses; Negative: Clubbing, Cyanosis, Edema Skin Exam: Positive: Nl turgor and temperature; Negative: Rash Psych Exam: Positive: Mental status NL, Mood NL Assessment /Plan Assessment - hgb remains stable - d/w dr. rodriguez, dr. 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 - change to oral lasix - Echo reviewed and shows LVEF 20-25% Right-sided abd pain - may be 2/2 dilated GB from acute on chronic cholecystitis - surgery followin, patient is not a surgical candidate with his comorbid conditions, but may warrant percutaneous cholecystostomy - empiric unasyn - HIDA scan pending # Constipation - scheduled Colace and mom # Chronic atrial fib - on amiodarone and eliquis, holding eliquis in case procedure warranted # HTN - daughter states typically SBP 100 - continue home Rx for now # DARYL - intolerant to CPAP due to PTSD # DM2 diet controlled (A1c 7.1%) - sliding scale # Metastatic well-differentiated PNET, grade 2 - s/p 06/24/2019 liver biopsy with 3 cm pancreatic body mass - multifocal enhancing liver lesions - CT and octreotide scans correlating in terms of extent of disease #Carcinoid symptoms of hot flashes and flushing, occasional loose stool. Daughter SPENSER updated by me Plan/VTE VTE Prophylaxis Ordered?: Yes (eliquis) VTE Exclusion Mechanical Proph: N/A:VTE Prophy Ordered VTE Exclusion Pharmacological: N/A:VTE Prophy Ordered VS, I&O, 24H, Fishbone Vital Signs/I&O Vital Signs Date Time Temp Pulse Resp B/P (MAP) Pulse Ox O2 Delivery O2 Flow Rate FiO2 10/15/19 06:00 98.0 87 20 108/68 (81) 93 Nasal Cannula 2.0 I&O- Last 24 Hours up to 6 AM0 10/15/19 06:00 Intake Total 1420 ml Output Total 1475 ml Balance -55 ml Laboratory Data 24H LABS Laboratory Tests 2 10/14/19 16:28: Bedside Glucose (Misc Panel) 117H 10/14/19 20:34: Bedside Glucose (Misc Panel) 110 10/15/19 06:08: Nucleated Red Blood Cells % (auto) 0.2H, Anion Gap 7L, Glomerular Filtration Rate 57.8, Calcium Level 8.8, Magnesium Level 2.5H CBC/BMP Laboratory Tests 10/15/19 06:08 Microbiology Microbiology 10/07/19 Blood Culture - Final, Complete NO GROWTH AFTER 5 DAYS 10/07/19 Respiratory Virus Panel (PCR) (BRITTANY) - Final, Complete 10/07/19 Blood Culture - Final, Complete NO GROWTH AFTER 5 DAYS ARIANA DECKER MD Oct 15, 2019 12:01
[2019-10-15 14:00] VITALS: BP 110/66
--- NOTE | 2019-10-15 14:28 | REP ---
HIDA SCAN: Following the intravenous administration of 6.6 mCi of technetium-99m mebrofenin, multiple images of the right upper quadrant are performed up to 3 hours post injection. There is heterogeneous uptake in the liver with photopenic areas compatible with hepatic metastases. There is excretion into the biliary system with biliary to bowel transit noted and no scintigraphic evidence of common bile duct obstruction. However, no gallbladder activity is seen at the 3 hour mallika. IMPRESSION: Scintigraphic findings are compatible with acute cholecystitis. Electronically Signed by Juan Mccray MD 10/15/2019 04:58 P
[2019-10-15] MEDS: DOCUSATE SODIUM 100 MG CAP PO SCH (20:36)
[2019-10-15] MEDS: FINASTERIDE 5 MG TAB PO SCH (20:36)
[2019-10-15 22:00] VITALS: BP 96/57
[2019-10-16] VITALS (7 sets, daily range): BP systolic 98–110; BP diastolic 54–64
[2019-10-16] MEDS: SLF 3 ML SYR IV SCH ×2 (05:10→15:33)
[2019-10-16 06:24] LABS: BASO % 0.3 % (0.0-1.0); EOS # 0.1 10^3/uL (0.0-0.5); HEMATOCRIT 24.1 % (42.0-52.0); HEMOGLOBIN 7.5 g/dl (13.5-17.5); LYMPH # 0.9 10^3/uL (1.5-5.0); LYMPH % 11.3 % (24.0-44.0); MEAN CORPUSCULAR HEMOGLOBIN 25.5 pg (27.0-33.0); MEAN CORPUSCULAR HGB CONC 31.1 g/dl (32.0-36.5); MONO # 0.6 10^3/uL (0.0-0.8); MONO % 8.1 % (0.0-5.0); NEUTROPHILS # 6.2 10^3/uL (1.5-8.5); NEUTROPHILS % 78.5 % (36.0-66.0); PLATELET COUNT, AUTOMATED 351 10^3/uL (150-450); RED BLOOD COUNT 2.94 10^6/uL (4.30-6.10); WHITE BLOOD COUNT 7.9 10^3/uL (4.0-10.0)
[2019-10-16 06:35] LABS: INR 1.42; PROTHROMBIN TIME 17.1 SECONDS (11.8-14.0)
[2019-10-16 06:43] LABS: CALCIUM LEVEL 8.3 MG/DL (8.8-10.2); CREATININE FOR GFR 1.28 MG/DL (0.70-1.30); GLOMERULAR FILTRATION RATE 56.7 (>35); MAGNESIUM LEVEL 2.7 MG/DL (1.8-2.4); POTASSIUM SERUM 3.7 MEQ/L (3.5-5.1)
--- NOTE | 2019-10-16 07:56 | IRMSE ---
[facility] IR Moderate Sedation Eval. Date and Time Date: Oct 16, 2019 Time: 07:56 ASA Classification ASA Classification: III-Severe systemic dis. Mallampati Score: II NPO: Yes Obstructive Sleep Apnea: No Interval Plan: moderate sedation CAITLIN BAILEY MD Oct 16, 2019 07:56
--- NOTE | 2019-10-16 07:58 | POST-OPPD ---
Postoperative Procedure Note Date Of Procedure: Oct 16, 2019 Time Of Procedure: 07:56 PREOPERATIVE DIAGNOSIS: cholecystitis. not for surgery POSTOPERATIVE DIAGNOSIS: same FINDINGS:cholecystitis PROCEDURE: cholecystostomy tube placed. follow up in IR in 12 weeks. daily flushing of drain needed with 10 ml sterile saline. please teach patient to do this prior to discharge and send home with script for sterile 10 ml saline flushes. SURGEON: jevon ANESTHESIA: mod sed ESTIMATED BLOOD LOSS: < 5 ml COMPLICATIONS: none POSTOPERATIVE CONDITION: stable CAITLIN BAILEY MD Oct 16, 2019 07:58
--- NOTE | 2019-10-16 08:11 | REP ---
IR cholecystostomy placement using CT guidance. IR moderate sedation. Clinical information: Right upper quadrant pain and tenderness. Cholecystitis. Presently not a surgical candidate. Physician: Dr. Henson. Procedure: The patient was advised of the benefits, risks and alternatives of the procedure and informed consent was obtained. The time-out was performed with verification of the patient's name, MRN, site of procedure and type of procedure to be performed. Moderate sedation was performed by the physician including the presence of an independent trained observer that assisted in monitoring the patient's level of consciousness and physiologic status. Following the administration of Versed and Fentanyl, the physician spent 45 minutes of continuous face to face time with the patient. The patient was placed in the supine position on the CT gantry and a scan was performed through the region of interest. This demonstrates a distended gallbladder. After marking the overlying skin, the patient was prepped and draped in the usual sterile fashion. The soft tissues overlying the gallbladder puncture site were anesthetized with lidocaine. Through this anesthetized region, an 18 gauge Chiba needle was advanced into the gallbladder under intermittent CT guidance. Brown fluid was aspirated. An Amplatz wire was advanced into the fluid collection over which a 10-[place] APDL was advanced. Subsequent localized CT scanning was performed to confirm catheter location. The catheter was then locked, sutured in position and placed to gravity drainage. The patient tolerated the procedure well and was returned to PRU in stable condition. EBL: Less than 5 ml. Complications: None. Conclusion: 1. CT demonstrates distended thick-walled gallbladder. 2. Successful CT guided cholecystostomy catheter placement. Catheter requires flushing with 10 ml sterile saline every day. Please teach patient to flush catheter with 10 ml sterile saline once a day. Please give the patient a script for sterile saline flushes upon discharge. Patient to follow up in IR in 12 weeks for routine exchange. Catheter may be removed at time of surgery if this becomes an option otherwise, catheter should remain. Thank you this referral. Electronically Signed by Piedad Henson MD 10/16/2019 08:10 A
[2019-10-16] MEDS: AMPICILLIN SOD/SULBACTAM SOD 3 GM in D5W MINI-BAG PLUS 100 ML IV SCH ×2 (08:39→15:46)
[2019-10-16] MEDS: PANTOPRAZOLE 40MG TAB (PROTONIX) PO SCH ×2 (08:39→21:28)
[2019-10-16] MEDS: allopurinoL 100 MG TAB PO SCH (08:40)
[2019-10-16] MEDS: SUCRALFATE 1 GM TAB PO SCH ×4 (08:40→21:28)
[2019-10-16] MEDS: DOCUSATE SODIUM 100 MG CAP PO SCH ×2 (08:40→21:00)
[2019-10-16] MEDS: AMIODARONE 200 MG TAB (PACERONE) PO SCH (08:40)
[2019-10-16] MEDS: FUROSEMIDE 20 MG TAB PO SCH (08:40)
[2019-10-16] MEDS ORDERED: MOM 30ML SUSPENSION UDC PO SCH (09:00)
[2019-10-16] MEDS: HumaLOG INSULIN (NovoLOG) PER UNIT SC SCH ×4 (09:45→21:00)
[2019-10-16] MEDS ORDERED: FLEET ENEMA PR PRN (10:30)
[2019-10-16] MEDS ORDERED: FUROSEMIDE 40 MG/4 ML VIAL (J1940) IV ONE (11:00)
--- NOTE | 2019-10-16 11:49 | IPNPDOC ---
Text Note Date of Service The patient was seen on 10/16/19. NOTE Patient had percutaneous cholecystostomy done early this morning and he reports immediate relief of his pain. He tells me that is pain is minimal at this point. He denies nausea, vomiting. He is tolerating diet but intake and appetite is reported low. Has not had a BM today. On exam, He looks to be mildly short of breath but still able to carry on the conversation. His abdomen is nondistended, soft. The LLQ tenderness is gone, He is mildly tender at the insertion site. The cholecystostomy bag has bloody output (no clots) Impression: Metastatic pNET pancreatic tumor to liver CHF right sided and left sided, EF 20-25% in most recent echo acute cholecystitis He feels better now with the decompression/drainage of the gallbladder. We will keep the cholecystostomy tube. Continue abx for now, switch to PO if tolerating diet and review microbiology. Suggest only a short course of abx rose if no growth in cultures. In about 4 weeks or so, do cholangiogram to rule out cystic duct obstruction. If no obstruction then can do trial clamping of the tube to see if he will be able to tolerate removal. I am wondering if the decompensation of the heart is d/t the carcinoid tumor effect. VS,Fishbone, I+O VS, Fishbone, I+O Laboratory Tests 10/16/19 05:59 Vital Signs Date Time Temp Pulse Resp B/P (MAP) Pulse Ox O2 Delivery O2 Flow Rate FiO2 10/16/19 07:55 85 16 96 Nasal Cannula 2 10/16/19 06:52 97.2 10/16/19 06:00 105/64 (78) I&O- Last 24 Hours up to 6 AM 10/16/19 05:59 Intake Total 1300 ml Output Total 1125 ml Balance 175 ml LUIS MCGINNIS MD Oct 16, 2019 11:48
[2019-10-16] MEDS ORDERED: GOLYTELY SOLN 4000 ML BTL PO ONE (12:00)
--- NOTE | 2019-10-16 13:00 | IPNPDOC ---
Subjective Date Seen The patient was seen on 10/16/19. Subjective Chief Complaint/HPI Marcus has returned from IR and tolerated the procedure well. His pain has diminished. He has not had a BM. He's currently on 1 liter nc Objective Physical Examination General Exam: Positive: Alert, Cooperative, No Acute Distress Eye Exam: Positive: PERRLA, EOMI; Negative: Sclera icteric ENT Exam: Positive: Mucous membr. moist/pink Neck Exam: Negative: JVD Chest Exam: Positive: Clear to auscultation Abdomen Exam: Positive: Normal bowel sounds, Tenderness (less tender on the Right side), Other (GB drain in place, with some blood discharge) Extremity Exam: Positive: Normal pulses; Negative: Clubbing, Cyanosis, Edema Skin Exam: Positive: Nl turgor and temperature; Negative: Rash Psych Exam: Positive: Mental status NL, Mood NL Assessment /Plan Assessment Melena - hgb slightly lower today - d/w dr. rodriguez, dr. 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 - change to oral lasix - Echo reviewed and shows LVEF 20-25% Right-sided abd pain - 2/2 dilated GB from acute on chronic cholecystitis - s/p percutaneous cholecystostomy 10/15 - empiric unasyn, pending cx results, wbc normal # Constipation - scheduled Colace and mom - golytely 2L and enemas prn # Chronic atrial fib - on amiodarone - will resume eliquis in next 24-48 hours if hgb levels are stable # HTN - daughter states typically SBP 100 - continue home Rx for now # DARYL - intolerant to CPAP due to PTSD # DM2 diet controlled (A1c 7.1%) - sliding scale # Metastatic well-differentiated PNET, grade 2 - s/p 06/24/2019 liver biopsy with 3 cm pancreatic body mass - multifocal enhancing liver lesions - CT and octreotide scans correlating in terms of extent of disease #Carcinoid symptoms of hot flashes and flushing, occasional loose stool. SPENSER (DPOA) updated on 10/15 Plan/VTE VTE Prophylaxis Ordered?: Yes (eliquis) VTE Exclusion Mechanical Proph: N/A:VTE Prophy Ordered VTE Exclusion Pharmacological: N/A:VTE Prophy Ordered (eliquis held for procedure) VS, I&O, 24H, Fishbone Vital Signs/I&O Vital Signs Date Time Temp Pulse Resp B/P (MAP) Pulse Ox O2 Delivery O2 Flow Rate FiO2 10/16/19 12:43 97.9 94 20 102/63 94 Nasal Cannula 0.5 I&O- Last 24 Hours up to 6 AM 10/16/19 06:00 Intake Total 1000 ml Output Total 825 ml Balance 175 ml Laboratory Data 24H LABS Laboratory Tests 2 10/15/19 16:30: Bedside Glucose (Misc Panel) 180H 10/15/19 20:30: Bedside Glucose (Misc Panel) 127H 10/16/19 05:55: Bedside Glucose (Misc Panel) 138H 10/16/19 05:59: Immature Granulocyte % (Auto) 0.8, Neutrophils (%) (Auto) 78.5H, Lymphocytes (%) (Auto) 11.3L, Monocytes (%) (Auto) 8.1H, Eosinophils (%) (Auto) 1.0, Basophils (%) (Auto) 0.3, Neutrophils # (Auto) 6.2, Lymphocytes # (Auto) 0.9L, Monocytes # (Auto) 0.6, Eosinophils # (Auto) 0.1, Basophils # (Auto) 0.0, Nucleated Red Blood Cells % (auto) 0.0, Prothrombin Time 17.1H, Prothromb Time International Ratio 1.42, Anion Gap 6L, Glomerular Filtration Rate 56.7, Calcium Level 8.3L, Magnesium Level 2.7H 10/16/19 08:35: Bedside Glucose (Misc Panel) 131H 10/16/19 11:30: Bedside Glucose (Misc Panel) 200H CBC/BMP Laboratory Tests 10/16/19 05:59 Microbiology Microbiology 10/07/19 Blood Culture - Final, Complete NO GROWTH AFTER 5 DAYS 10/07/19 Respiratory Virus Panel (PCR) (BRITTANY) - Final, Complete 10/07/19 Blood Culture - Final, Complete NO GROWTH AFTER 5 DAYS ARIANA DECKER MD Oct 16, 2019 13:00
[2019-10-16] MEDS: FINASTERIDE 5 MG TAB PO SCH (21:28)
[2019-10-17] MEDS: SLF 3 ML SYR IV SCH ×4 (00:23→21:17)
[2019-10-17] MEDS: AMPICILLIN SOD/SULBACTAM SOD 3 GM in D5W MINI-BAG PLUS 100 ML IV SCH ×3 (00:23→16:35)
[2019-10-17 06:00] VITALS: BP 109/59
[2019-10-17 06:15] LABS: HEMATOCRIT 26.8 % (42.0-52.0); HEMOGLOBIN 8.4 g/dl (13.5-17.5); MEAN CORPUSCULAR HEMOGLOBIN 25.8 pg (27.0-33.0); MEAN CORPUSCULAR HGB CONC 31.3 g/dl (32.0-36.5); MEAN CORPUSCULAR VOLUME 82.2 fl (80.0-96.0); PLATELET COUNT, AUTOMATED 356 10^3/uL (150-450); RED BLOOD COUNT 3.26 10^6/uL (4.30-6.10)
[2019-10-17 06:41] LABS: CALCIUM LEVEL 8.6 MG/DL (8.8-10.2); CREATININE FOR GFR 1.27 MG/DL (0.70-1.30); GLOMERULAR FILTRATION RATE 57.2 (>35); POTASSIUM SERUM 3.1 MEQ/L (3.5-5.1)
[2019-10-17] MEDS: HumaLOG INSULIN (NovoLOG) PER UNIT SC SCH ×4 (07:30→21:00)
[2019-10-17] MEDS ORDERED: MOM 30ML SUSPENSION UDC PO PRN (08:00)
[2019-10-17] MEDS ORDERED: POTASSIUM CHLORIDE 10 MEQ SR TABLET PO ONE (08:00)
[2019-10-17] MEDS: DOCUSATE SODIUM 100 MG CAP PO SCH ×2 (08:05→21:16)
[2019-10-17] MEDS: PANTOPRAZOLE 40MG TAB (PROTONIX) PO SCH ×2 (08:10→21:16)
[2019-10-17] MEDS: FUROSEMIDE 20 MG TAB PO SCH (08:10)
[2019-10-17] MEDS: SUCRALFATE 1 GM TAB PO SCH ×4 (08:10→21:16)
[2019-10-17] MEDS: AMIODARONE 200 MG TAB (PACERONE) PO SCH (08:10)
[2019-10-17] MEDS: allopurinoL 100 MG TAB PO SCH (08:10)
[2019-10-17 08:28] LABS: MAGNESIUM LEVEL 2.6 MG/DL (1.8-2.4)
--- NOTE | 2019-10-17 10:21 | IPN ---
DATE: 10/17/2019 Patient's white count is good today, has no new complaints of abdominal pain or discomfort. The cholecystostomy tube is in place and draining some fluid, although there is not a significant amount of bile within this fluid itself. The patient has been afebrile and white count has been normal for 48 hours. Abdomen is soft, nontender. IMPRESSION/PLAN: Patient has a cholecystostomy tube in for an obstructed cystic duct appreciated on studies. At this time, I do feel that it is reasonable to continue with a cholecystostomy tube in place. It may be that he has a chronically obstructed cystic duct as the most likely diagnosis and if this is the case, I would recommend keeping the drain in until he has less than 30 mL per day and at some point, this may be able to be removed. I will otherwise continue with current recommendations. Encourage oral intake, etc.
--- NOTE | 2019-10-17 10:29 | IPNPDOC ---
Subjective Date Seen The patient was seen on 10/17/19. Subjective Chief Complaint/HPI No longer constipated. Feels a little sob when walking and states the oxygen makes him feel better. Objective Physical Examination General Exam: Positive: Alert, Cooperative, No Acute Distress Eye Exam: Positive: PERRLA, EOMI; Negative: Sclera icteric ENT Exam: Positive: Mucous membr. moist/pink Neck Exam: Negative: JVD Chest Exam: Positive: Clear to auscultation Abdomen Exam: Positive: Normal bowel sounds, Tenderness (less tender on the Right side), Other (GB drain in place, with some blood discharge) Extremity Exam: Positive: Normal pulses; Negative: Clubbing, Cyanosis, Edema Skin Exam: Positive: Nl turgor and temperature; Negative: Rash Psych Exam: Positive: Mental status NL, Mood NL Assessment /Plan Assessment Melena - hgb improved to 8.5 g/dl following transfusion - d/w dr. Calix, dr. 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 No culture was sent from IR procedure # Constipation # Hypokalemia due to cathartics - responded to golytely with multiple BMs, no longer experiencing abd pain - change bowel regimen back to prn - replace K # Chronic atrial fib rate controlled - on amiodarone - still having bloody drainage from cholecystectomy drain will hold eliquis for next 1-2 days. # HTN - daughter states typically SBP 100 - continue home Rx for now # DARYL - intolerant to CPAP due to PTSD # DM2 diet controlled (A1c 7.1%) - sliding scale # Metastatic well-differentiated PNET, grade 2 - s/p 06/24/2019 liver biopsy with 3 cm pancreatic body mass - multifocal enhancing liver lesions - CT and octreotide scans correlating in terms of extent of disease #Carcinoid symptoms of hot flashes and flushing, occasional loose stool. SPENSER (DPOA) updated on 10/15 Plan/VTE VTE Prophylaxis Ordered?: Yes (eliquis) VTE Exclusion Mechanical Proph: N/A:VTE Prophy Ordered VTE Exclusion Pharmacological: N/A:VTE Prophy Ordered (eliquis held for juwan sher) VS, I&O, 24H, Fishbone Vital Signs/I&O Vital Signs Date Time Temp Pulse Resp B/P (MAP) Pulse Ox O2 Delivery O2 Flow Rate FiO2 10/17/19 09:00 0.5 10/17/19 06:00 97.4 85 20 109/59 (76) 94 Nasal Cannula I&O- Last 24 Hours up to 6 AM 10/17/19 06:00 Intake Total 2060 ml Output Total 400 ml Balance 1660 ml Laboratory Data 24H LABS Laboratory Tests 2 10/16/19 11:30: Bedside Glucose (Misc Panel) 200H 10/16/19 16:26: Bedside Glucose (Misc Panel) 146H 10/16/19 20:32: Bedside Glucose (Misc Panel) 124H 10/17/19 05:44: Anion Gap 7L, Glomerular Filtration Rate 57.2, Calcium Level 8.6L, Magnesium Level 2.6H 10/17/19 05:45: Nucleated Red Blood Cells % (auto) 0.3H CBC/BMP Laboratory Tests 10/17/19 05:44 10/17/19 05:45 Microbiology Microbiology 10/07/19 Blood Culture - Final, Complete NO GROWTH AFTER 5 DAYS 10/07/19 Respiratory Virus Panel (PCR) (BRITTANY) - Final, Complete 10/07/19 Blood Culture - Final, Complete NO GROWTH AFTER 5 DAYS ARIANA DECKER MD Oct 17, 2019 10:29
[2019-10-17 14:00] VITALS: BP 96/60
[2019-10-17] MEDS: FINASTERIDE 5 MG TAB PO SCH (21:16)
[2019-10-17 22:00] VITALS: BP 102/60
[2019-10-18 06:00] VITALS: BP 104/62
[2019-10-18 06:13] LABS: HEMATOCRIT 27.4 % (42.0-52.0); HEMOGLOBIN 8.6 g/dl (13.5-17.5); MEAN CORPUSCULAR HEMOGLOBIN 25.6 pg (27.0-33.0); MEAN CORPUSCULAR HGB CONC 31.4 g/dl (32.0-36.5); MEAN CORPUSCULAR VOLUME 81.5 fl (80.0-96.0); PLATELET COUNT, AUTOMATED 370 10^3/uL (150-450); RED BLOOD COUNT 3.36 10^6/uL (4.30-6.10); WHITE BLOOD COUNT 6.1 10^3/uL (4.0-10.0)
[2019-10-18] MEDS: SLF 3 ML SYR IV SCH ×3 (06:31→21:47)
[2019-10-18 06:36] LABS: BLOOD UREA NITROGEN 35 MG/DL (7-18); CARBON DIOXIDE LEVEL 33 MEQ/L (21-32); CHLORIDE LEVEL 96 MEQ/L (98-107); CREATININE FOR GFR 1.07 MG/DL (0.70-1.30); GLOMERULAR FILTRATION RATE > 60.0 (>35); GLUCOSE, FASTING 125 MG/DL (70-100); POTASSIUM SERUM 3.8 MEQ/L (3.5-5.1); SODIUM LEVEL 136 MEQ/L (136-145)
[2019-10-18] MEDS: FUROSEMIDE 20 MG TAB PO SCH (08:17)
[2019-10-18] MEDS: SUCRALFATE 1 GM TAB PO SCH ×4 (08:17→21:47)
[2019-10-18] MEDS: HumaLOG INSULIN (NovoLOG) PER UNIT SC SCH ×4 (08:17→20:39)
[2019-10-18] MEDS: PANTOPRAZOLE 40MG TAB (PROTONIX) PO SCH ×2 (08:17→21:47)
[2019-10-18] MEDS: allopurinoL 100 MG TAB PO SCH (08:17)
[2019-10-18] MEDS: AMIODARONE 200 MG TAB (PACERONE) PO SCH (08:17)
[2019-10-18] MEDS: AMPICILLIN SOD/SULBACTAM SOD 3 GM in D5W MINI-BAG PLUS 100 ML IV SCH ×3 (08:17)
[2019-10-18] MEDS: DOCUSATE SODIUM 100 MG CAP PO SCH ×2 (08:18→21:47)
--- NOTE | 2019-10-18 08:36 | IPN ---
DATE OF SERVICE: 10/18/2019 The patient has done well since yesterday. No complaints. He has still some drainage out of his cholecystostomy tube drainage site, about 30 mL overnight. It is a little more bloody. He has been having some bowel movements and overall been afebrile for quite awhile now. His white count has been normal, and he does not really have any bile coming out of this, which suggest that he probably has a cystic duct obstruction. I anticipate this is probably chronic, although it could be secondary to metastatic disease from enlarged lymph nodes, etc. Hard to know at this point or possibly even related to acalculous cholecystitis. From my standpoint, though, it appears that the patient is doing adequately well with this. He is tolerating a diet. I have encouraged him to be more active, but from surgical standpoint he can be discharged to home with the drain in place with nursing care to irrigate the drain every day and to followup with Dr. Duke in 1 week for possible drain removal. Otherwise, no further surgical intervention is needed at this time.
--- NOTE | 2019-10-18 11:13 | IPNPDOC ---
Subjective Date Seen The patient was seen on 10/18/19. Subjective Chief Complaint/HPI Gb drain output 30 ml. No abd pain. I feel good. Objective Physical Examination General Exam: Positive: Alert, Cooperative, No Acute Distress Eye Exam: Positive: PERRLA, EOMI; Negative: Sclera icteric ENT Exam: Positive: Mucous membr. moist/pink Neck Exam: Negative: JVD Chest Exam: Positive: Clear to auscultation Abdomen Exam: Positive: Normal bowel sounds, Other (GB drain in place, with some scant blood discharge); Negative: Tenderness Extremity Exam: Positive: Normal pulses; Negative: Clubbing, Cyanosis, Edema Skin Exam: Positive: Nl turgor and temperature; Negative: Rash Psych Exam: Positive: Mental status NL, Mood NL Assessment /Plan Assessment Melena - hgb improved to 8.6 g/dl today - d/w dr. Calix, dr. 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 No culture was sent from IR procedure # Constipation # Hypokalemia due to cathartics - responded to golytely with multiple BMs, no longer experiencing abd pain - change bowel regimen back to prn # Chronic atrial fib rate controlled - on amiodarone - still having bloody drainage from cholecystectomy drain will hold eliquis today, and likely resume tomorrow # HTN - daughter states typically SBP 100 - continue home Rx for now # DARYL - intolerant to CPAP due to PTSD # DM2 diet controlled (A1c 7.1%) - sliding scale # Metastatic well-differentiated PNET, grade 2 - s/p 06/24/2019 liver biopsy with 3 cm pancreatic body mass - multifocal enhancing liver lesions - CT and octreotide scans correlating in terms of extent of disease #Carcinoid symptoms of hot flashes and flushing, occasional loose stool. SPENSER (DPOA) updated on 10/17 @ 11 am Dispo: Ready for discharge saturday. home with HH vs. rehab Plan/VTE VTE Prophylaxis Ordered?: Yes (eliquis) VTE Exclusion Mechanical Proph: N/A:VTE Prophy Ordered VTE Exclusion Pharmacological: N/A:VTE Prophy Ordered (eliquis held for procedure) VS, I&O, 24H, Fishbone Vital Signs/I&O Vital Signs Date Time Temp Pulse Resp B/P (MAP) Pulse Ox O2 Delivery O2 Flow Rate FiO2 10/18/19 06:00 98.5 86 17 104/62 (76) 98 Nasal Cannula 0.5 I&O- Last 24 Hours up to 6 AM 10/18/19 06:00 Intake Total 1960 ml Output Total 250 ml Balance 1710 ml Laboratory Data 24H LABS Laboratory Tests 2 10/17/19 11:59: Bedside Glucose (Misc Panel) 149H 10/17/19 17:01: Bedside Glucose (Misc Panel) 132H 10/17/19 20:13: Bedside Glucose (Misc Panel) 149H 10/18/19 05:38: Nucleated Red Blood Cells % (auto) 0.0 10/18/19 05:39: Anion Gap 7L, Glomerular Filtration Rate > 60.0, Calcium Level 8.0L CBC/BMP Laboratory Tests 10/18/19 05:38 10/18/19 05:39 ARIANA DECKER MD Oct 18, 2019 11:13
[2019-10-18 14:00] VITALS: BP 97/56
[2019-10-18] MEDS: AUGMENTIN 500 MG TAB PO SCH (21:47)
[2019-10-18] MEDS: FINASTERIDE 5 MG TAB PO SCH (21:47)
[2019-10-18 22:00] VITALS: BP 94/68
[2019-10-19 06:00] VITALS: BP 101/58
[2019-10-19] MEDS: SLF 3 ML SYR IV SCH ×3 (06:00→21:36)
[2019-10-19 06:22] LABS: HEMATOCRIT 28.4 % (42.0-52.0); HEMOGLOBIN 8.8 g/dl (13.5-17.5); MEAN CORPUSCULAR HEMOGLOBIN 25.8 pg (27.0-33.0); MEAN CORPUSCULAR VOLUME 83.3 fl (80.0-96.0); PLATELET COUNT, AUTOMATED 356 10^3/uL (150-450); RED BLOOD COUNT 3.41 10^6/uL (4.30-6.10); WHITE BLOOD COUNT 6.6 10^3/uL (4.0-10.0)
[2019-10-19 06:52] LABS: BLOOD UREA NITROGEN 29 MG/DL (7-18); CALCIUM LEVEL 8.5 MG/DL (8.8-10.2); CARBON DIOXIDE LEVEL 35 MEQ/L (21-32); CHLORIDE LEVEL 97 MEQ/L (98-107); CREATININE FOR GFR 1.08 MG/DL (0.70-1.30); GLOMERULAR FILTRATION RATE > 60.0 (>35); GLUCOSE, FASTING 130 MG/DL (70-100); POTASSIUM SERUM 4.1 MEQ/L (3.5-5.1); SODIUM LEVEL 135 MEQ/L (136-145)
[2019-10-19] MEDS: PANTOPRAZOLE 40MG TAB (PROTONIX) PO SCH ×2 (08:19→21:34)
[2019-10-19] MEDS: AUGMENTIN 500 MG TAB PO SCH ×2 (08:19→21:33)
[2019-10-19] MEDS: SUCRALFATE 1 GM TAB PO SCH ×4 (08:20→21:34)
[2019-10-19] MEDS: FUROSEMIDE 20 MG TAB PO SCH (08:20)
[2019-10-19] MEDS: AMIODARONE 200 MG TAB (PACERONE) PO SCH (08:20)
[2019-10-19] MEDS: DOCUSATE SODIUM 100 MG CAP PO SCH ×2 (08:20→21:00)
[2019-10-19] MEDS: HumaLOG INSULIN (NovoLOG) PER UNIT SC SCH ×4 (08:20→21:00)
[2019-10-19] MEDS: allopurinoL 100 MG TAB PO SCH (08:20)
--- NOTE | 2019-10-19 10:59 | IPNPDOC ---
Text Note Date of Service The patient was seen on 10/19/19. NOTE Patient is seen this morning. He looks very comfortable. He has SCDs doing well. He is just waiting for physical therapy to clear him so he can go home. No fevers chills or for abdominal discomfort reported. On examination his abdomen is nondistended and nontender on palpation. The percutaneous cholecystostomy drain is putting out some dirty appearing bile and no longer bloody in appearance though review of the I&Os over the weekend only show 40 mL straining from this for the past 24 hours and on Saturday. Impression: Acute lower Chronic cholecystitis status post percutaneous cholecystostomy drainage His antibiotic as been switched to Augmentin and they recommended only a short course antibiotics of and were between 7-10 days be used. He should go home with the drain and follow-up with me in 1 month. At that time we will to a cholangiogram through the percutaneous tube to see if the cystic duct was opened up. if it does not open up and patient continues to be symptomatic and is not a candidate for surgery that he should follow up with interventional radiology for change of catheter. VS,Ericbone, I+O VS, Fishbone, I+O Laboratory Tests 10/19/19 06:07 Vital Signs Date Time Temp Pulse Resp B/P (MAP) Pulse Ox O2 Delivery O2 Flow Rate FiO2 10/19/19 09:00 1.0 10/19/19 06:00 98.0 75 18 101/58 (72) 99 Nasal Cannula I&O- Last 24 Hours up to 6 AM 10/19/19 06:00 Intake Total 1730 ml Output Total 1010 ml Balance 720 ml LUIS MCGINNIS MD Oct 19, 2019 10:59
[2019-10-19 14:00] VITALS: BP 111/71
--- NOTE | 2019-10-19 15:45 | IPNPDOC ---
Subjective Date Seen The patient was seen on 10/19/19. Subjective Chief Complaint/HPI Marcus feels good," I can run a mile today." He continues to progress with PT and is awaiting a rehab bed to open up. Objective Physical Examination General Exam: Positive: Alert, No Acute Distress Eye Exam: Positive: PERRLA, EOMI; Negative: Sclera icteric ENT Exam: Positive: Mucous membr. moist/pink Neck Exam: Negative: JVD Chest Exam: Positive: Clear to auscultation Abdomen Exam: Positive: Normal bowel sounds, Other (GB drain with very little drainage); Negative: Tenderness Extremity Exam: Positive: Normal pulses; Negative: Clubbing, Cyanosis, Edema Skin Exam: Positive: Nl turgor and temperature; Negative: Rash Psych Exam: Positive: Mental status NL, Mood NL Assessment /Plan Assessment # Melena - hgb improved to 8.8 g/dl today - d/w dr. Calix, dr. tilley - no scopes - resumed 2 gram sodium/carb consistent diet - PO protonix BID - transfuse if Hgb <8. 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 No culture was sent from IR procedure # Constipation # Hypokalemia due to cathartics - responded to golytely with multiple BMs, no longer experiencing abd pain - change bowel regimen back to prn # Chronic atrial fib rate controlled - on amiodarone - may resume eliquis 5 mg bid tonight # HTN - daughter states typically SBP 100 - continue home Rx for now # DARYL - intolerant to CPAP due to PTSD # DM2 diet controlled (A1c 7.1%) - sliding scale # Metastatic well-differentiated PNET, grade 2 - s/p 06/24/2019 liver biopsy with 3 cm pancreatic body mass - multifocal enhancing liver lesions - CT and octreotide scans correlating in terms of extent of disease #Carcinoid symptoms of hot flashes and flushing, occasional loose stool. SPENSER (DPOA) updated on 10/17 @ 11 am Dispo: awaiting ARU bed vs. home with home health Plan/VTE VTE Prophylaxis Ordered?: Yes (eliquis) VTE Exclusion Mechanical Proph: N/A:VTE Prophy Ordered VTE Exclusion Pharmacological: N/A:VTE Prophy Ordered (eliquis held for procedure) VS, I&O, 24H, Fishbone Vital Signs/I&O Vital Signs Date Time Temp Pulse Resp B/P (MAP) Pulse Ox O2 Delivery O2 Flow Rate FiO2 10/19/19 14:00 97.5 85 17 111/71 (84) 97 Room Air 10/19/19 09:00 1.0 I&O- Last 24 Hours up to 6 AM 10/19/19 05:59 Intake Total 1430 ml Output Total 860 ml Balance 570 ml Laboratory Data 24H LABS Laboratory Tests 2 10/18/19 16:39: Bedside Glucose (Misc Panel) 109 10/18/19 20:34: Bedside Glucose (Misc Panel) 168H 10/19/19 06:07: Nucleated Red Blood Cells % (auto) 0.5H, Anion Gap 3L, Glomerular Filtration Rate > 60.0, Calcium Level 8.5L 10/19/19 11:26: Bedside Glucose (Misc Panel) 130H CBC/BMP Laboratory Tests 10/19/19 06:07 ARIANA DECKER MD Oct 19, 2019 15:36
[2019-10-19] MEDS: APIXABAN 5 MG TAB (ELIQUIS) PO SCH (21:34)
[2019-10-19] MEDS: FINASTERIDE 5 MG TAB PO SCH (21:34)
[2019-10-19 22:00] VITALS: BP 96/58
[2019-10-20] MEDS: SLF 3 ML SYR IV SCH (05:12)
[2019-10-20 06:00] VITALS: BP 96/57
[2019-10-20] MEDS: HumaLOG INSULIN (NovoLOG) PER UNIT SC SCH ×2 (07:30→12:00)
[2019-10-20] MEDS: DOCUSATE SODIUM 100 MG CAP PO SCH (08:34)
[2019-10-20] MEDS: allopurinoL 100 MG TAB PO SCH (08:34)
[2019-10-20] MEDS: AUGMENTIN 500 MG TAB PO SCH (08:35)
[2019-10-20] MEDS: SUCRALFATE 1 GM TAB PO SCH ×2 (08:35→12:00)
[2019-10-20] MEDS: PANTOPRAZOLE 40MG TAB (PROTONIX) PO SCH (08:35)
[2019-10-20] MEDS: AMIODARONE 200 MG TAB (PACERONE) PO SCH (08:35)
[2019-10-20] MEDS: APIXABAN 5 MG TAB (ELIQUIS) PO SCH (08:35)
[2019-10-20] MEDS: FUROSEMIDE 20 MG TAB PO SCH (08:35)
[2019-10-20] MEDS ORDERED: PANT40TA3 PO (09:54)
[2019-10-20] MEDS ORDERED: FURO20TA2 PO (09:55)
[2019-10-20] MEDS ORDERED: AMOX500T2 PO (11:08)
--- NOTE | 2019-10-20 17:42 | DS.PDOC ---
Discharge Summary General Date of Admission Oct 07, 2019 at 17:11 Date of Discharge 10/20/19 Discharge Summary DISCHARGE DIAGNOSES Acute GI Bleed in the setting of chronic anticoagulation for atrial fibrillation Acute blood loss anemia due to GI bleed Acute on chronic decompensated systolic + diastolic CHF acute on chronic cholecystitis s/p percutaneous cholecystostomy 10/15/29 Constipation Hypokalemia due to cathartics Chronic atrial fib HTN DARYL PTSD DM2 diet controlled (A1c 7.1%) Metastatic well-differentiated PNET, grade 2 Carcinoid symptoms of hot flashes and flushing, occasional loose stool. DISCHARGE MEDICATIONS: PLS SEE BELOW [facility] GASTROENTEROLOGY-DR. CALIX, DR. TILLEY GENERAL SURGERY-DR. MCGINNIS, DR. PHILLIP BAILEY, INTERVENTIONAL RADIOLOGY PROCEDURES CHOLECYSTOSTOMY TUBE PLACEMENT BY DR BAILEY, INTERVENTIONAL RADIOLOGY HOSPITAL COURSE 84yo male admitted due to ongoing melena at home requiring 1 rbc transfusion from 7.5 to 8.8, and acute decompensated systolic and diastolic chf. Acute blood loss anemia due to chronic GI bleed hgb 7.5 improved to 8.8 after 1 unit rbc transfusion GI dr. Calix, dr. 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 outpt fu with IR and general surgery. transitioned from unasyn to augmentin, last dose to be on 4/3 for a total of 10 days. No culture was sent from IR procedure Constipation Hypokalemia due to cathartics - responded to golytely with multiple BMs, no longer experiencing abd pain - change bowel regimen back to prn Chronic atrial fib on amiodarone resumed eliquis 5 mg bid tonight HTN resumed on home meds Metastatic well-differentiated PNET, grade 2 s/p 06/24/2019 liver biopsy with 3 cm pancreatic body mass multifocal enhancing liver lesions CT and octreotide scans confirmed extent of disease DISCHARGE PHYSICAL EXAMINATION: VITALS: PLS SEE BELOW DISCHARGE LABORATORY DATA, IMAGING STUDIES, MICROBIOLOGY: PLS SEE BELOW. HIDA SCAN: Following the intravenous administration of 6.6 mCi of technetium-99m mebrofenin, multiple images of the right upper quadrant are performed up to 3 hours post injection. There is heterogeneous uptake in the liver with photopenic areas compatible with hepatic metastases. There is excretion into the biliary system with biliary to bowel transit noted and no scintigraphic evidence of common bile duct obstruction. However, no gallbladder activity is seen at the 3 hour mallika. IMPRESSION: Scintigraphic findings are compatible with acute cholecystitis. Electronically Signed by Juan Mccray MD 10/15/2019 04:[address] ABD/PELVIS: Clinical: Right lower quadrant pain. History of metastatic pancreatic cancer. Technique: Axial contrast enhanced images from the lung bases to the pubic symphysis with coronal and sagittal re-formations using 100 ml Isovue 370 intravenous contrast material. Moderate bilateral pleural effusions and bibasilar atelectasis along with cardiomegaly noted. Innumerable hepatic metastases may be slightly increased from prior examination. Spleen, bilateral adrenal glands, and kidneys appear essentially normal/stable. Incidental 2 mm nonobstructing left renal calculus again identified. Pancreas is essentially unchanged in appearance. The gallbladder is moderately dilated with mild gallbladder wall thickening and trace pericholecystic fluid cannot be excluded. The enteric system demonstrates moderate fecal stasis and colonic diverticulosis without obstruction or obvious acute inflammatory process. Evidence for prior partial sigmoid resection and anastomoses in the pelvis along with evidence for ventral hernia repair appear unchanged. Further evaluation of the pelvis demonstrates normal bladder and age appropriate prostate/seminal vesicles. Small amount of ascites in the right perihepatic space is appreciated. Atherosclerotic changes to the aorta and vasculature noted without aneurysm or dissection. Musculoskeletal structures demonstrate osteopenia and degenerative changes. Impression: 1. Hepatic metastasis may be slightly increased from prior examination. 2. The gallbladder is moderately distended with mild gallbladder wall thickening and trace pericholecystic fluid as well as small amount of perihepatic fluid. Correlation with ultrasound to exclude acute cholecystitis may be warranted. 3. Further nonacute findings as described above including 2 mm nonobstructing left renal calculus, colonic diverticulosis and fecal stasis. Electronically Signed by Mallika Wright MD 10/13/2019 12:13 Pm IR choLecystostomy placement using CT guidance. IR moderate sedation. Clinical information: Right upper quadrant pain and tenderness. Cholecystitis. Presently not a surgical candidate. Physician: Dr. Bailey. Procedure: The patient was advised of the benefits, risks and alternatives of the Procedure and informed consent was obtained. The time-out was performed with verification of the patient's name, MRN, site of procedure and type of procedure to be performed Moderate sedation was performed by the physician including the presence of an independent trained observer that assisted in monitoring the patient's level of consciousness and physiologic status. Following the administration of Versed and Fentanyl, the physician spent 45 minutes of continuous face to face time with the patient. The patient was placed in the supine position on the CT gantry and a scan was performed through the region of interest. This demonstrates a distended gallbladder. After marking the overlying skin, the patient was prepped and draped in the usual sterile fashion. The soft tissues overlying the gallbladder puncture site were anesthetized with lidocaine. Through this anesthetized region, an 18 gauge Chiba needle was advanced into the gallbladder under intermittent CT guidance. Brown fluid was aspirated. An Amplatz wire was advanced into the fluid collection over which a 10-Iraqi APDL was advanced. Subsequent localized CT scanning was performed to confirm catheter location. The catheter was then locked, sutured in position and placed to gravity drainage. The patient tolerated the procedure well and was returned to PRU in stable condition. EBL: Less than 5 ml. Complications: None. Conclusion: 1. CT demonstrates distended thick-walled gallbladder. 2. Successful CT guided cholecystostomy catheter placement. Catheter requires flushing with 10 ml sterile saline every day. Please teach patient to flush catheter with 10 ml sterile saline once a day. Please give the patient a script for sterile saline flushes upon discharge. Patient to follow up in IR in 12 weeks for routine exchange. Catheter may be removed at time of surgery if this becomes an option otherwise, catheter should remain. Thank you this referral. Electronically Signed by Piedad Bailey MD 10/16/2019 08:10 A TIME SPENT ON DISCHARGE: 30 min. Vital Signs/I&Os Vital Signs Date Time Temp Pulse Resp B/P (MAP) Pulse Ox O2 Delivery O2 Flow Rate FiO2 10/20/19 06:00 97.6 62 18 96/57 (70) 92 10/19/19 14:00 Room Air 10/19/19 09:00 1.0 I&O- Last 24 Hours up to 6 AM 10/20/19 06:00 Intake Total 1830 ml Output Total 480 ml Balance 1350 ml Laboratory Data Labs 24H Laboratory Tests 2 10/19/19 20:45: Bedside Glucose (Misc Panel) 170H 10/20/19 07:47: Bedside Glucose (Misc Panel) 160H 10/20/19 11:31: Bedside Glucose (Misc Panel) 156H FSBS Laboratory Tests Test 10/19/19 20:45 10/20/19 07:47 10/20/19 11:31 Range/Units Bedside Glucose (Misc Panel) 170 160 156 83-110 MG/DL Discharge Medications Scheduled Allopurinol (Allopurinol) 100 Mg Tablet, 100 MG PO DAILY, (Reported) PATIENT HAS BEEN OUT OF THIS MEDICATION Amiodarone HCl (Amiodarone HCl) 200 Mg Tablet, 200 MG PO DAILY, (Reported) Amoxicillin/Potassium Clav (Amox-Clav 500-125 mg Tablet) 1 Each Tablet, 500 MG PO BID Apixaban (Eliquis) 5 Mg Tab, 5 MG PO BID, (Reported) Cholecalciferol (Vitamin D3) (Vitamin D3) 2,000 Unit Tab.chew, 2,000 UNIT PO DAILY, (Reported) Finasteride (Finasteride) 5 Mg Tab, 5 MG PO QHS, (Reported) PATIENT HAS BEEN OUT OF THIS MEDICATION Furosemide (Furosemide) 20 Mg Tablet, 20 MG PO DAILY [place]-3 Fatty Acids/Fish Oil ([place] 3 1,000 mg Softgel) 1 Cap Cap, 1,000 MG PO DAILY, (Reported) Pantoprazole Sodium (Pantoprazole Sodium) 40 Mg Tablet.dr, 40 MG PO BID Sucralfate (Sucralfate) 1 Gm Tablet, 1 GRAM PO ACHS, (Reported) Allergies Coded Allergies: NSAIDS (Non-Steroidal Anti-Inflamma (Verified Allergy, Unknown, unknown, 12/28/18) sulfamethoxazole (Verified Allergy, Unknown, unknown, 12/28/18) trimethoprim (Verified Allergy, Unknown, unknown, 12/28/18) hydrocodone (Verified Adverse Reaction, Intermediate, nausea/vomiting/dizzy, 09/30/19) GARY ADRIAN MD Oct 20, 2019 17:18
--- NOTE | 2019-10-21 09:39 | IPNPDOC ---
Text Note Date of Service The patient was seen on 10/12/19. NOTE S: Patient seen and examined at bedside. No new medical complaints this morning. Was short of breath during ambulation, but maintained adequate O2 sats. O: PHYSICAL EXAMINATION: VITAL SIGNS: See below General : NAD, sitting comfortably in chair, elderly HEENT: NC/AT, EOMI, nasal cannula in place Lungs: CTA B/L Heart: +S1S2, RRR Abd: soft, NT, +BS Ext: trace edema ASSESSMENT: 84 yo male with extensive medical history, admitted for melena, hospital stay complicated with acute/chronic decompensated congestive heart failure. #melena - no BM while in hospital yet - d/w dr. rodriguez, dr. tilley - no scopes - resumed 2 gram sodium/carb consistent diet - PO protonix BID - transfuse if Hgb <8 #decompensated congestive heart failure with systolic and diastolic dysfunction - acute on chronic - iv lasix - BNP trending down - I/O's, daily weight - wean O2 - Systolic and diastolic heart failure, LVEF 45% on 10/2017 echocardiogram - repeat echo pending #afib/flutter - on amiodarone - will continue DOAC for now #HTN - daughter states typically SBP 100 - continue home Rx for now #INFLAMMATORY ARTHRITIS - POSITIVE NASRA #BPPV #BPH #arrhythmia - s/p PPM 11/2017 - DR. 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 DIFF IN 08/2019 #Metastatic well-differentiated PNET, grade 2 - s/p 06/24/2019 liver biopsy with 3 cm pancreatic body mass - multifocal enhancing liver lesions - CT and octreotide scans correlating in terms of extent of disease #Carcinoid symptoms of hot flashes and flushing, occasional loose stool. Dispo: complains of abdominal pain/epigastric pain; abdominal x-ray pending; consider f/u CT pending results of KUB VS,Fishbone, I+O VS, Fishbone, I+O Vital Signs Date Time Temp Pulse Resp B/P (MAP) Pulse Ox O2 Delivery O2 Flow Rate FiO2 10/20/19 06:00 97.6 62 18 96/57 (37) 92 10/19/19 14:00 Room Air 10/19/19 09:00 1.0 I&O- Last 24 Hours up to 6 AM 10/21/19 06:00 Intake Total 100 ml Output Total 275 ml Balance -175 ml ANI KELLY MD Oct 21, 2019 09:39
== END 2019-10-20 13:30 | disposition home health service (06) | DRG 377 ==
LOC: M ED 14:25 → M ED INP 17:11 → ENRESERVTM 19:15 → ENRESERVDT 19:15 → M PCU 20:10 → M MSPAV 10-13 15:05
PROVIDERS: ADMIT Internal Medicine; ATTEND General Practice
PROC: 30233N1 Transfusion of Nonautologous Red Blood Cells into Peripheral Vein, Percutaneous Approach (ICD-10-PCS; 2019-10-16)
PROC: 0F9430Z Drainage of Gallbladder with Drainage Device, Percutaneous Approach (ICD-10-PCS; principal; 2019-10-16 07:30)
DX: K92.1 Melena (principal); I50.43 Acute on chronic combined systolic (congestive) and diastolic (congestive) heart failure; I48.92 Unspecified atrial flutter; C78.7 Secondary malignant neoplasm of liver and intrahepatic bile duct; D62 Acute posthemorrhagic anemia; K81.0 Acute cholecystitis; C7A.8 Other malignant neuroendocrine tumors; I48.0 Paroxysmal atrial fibrillation; E11.40 Type 2 diabetes mellitus with diabetic neuropathy, unspecified; I11.0 Hypertensive heart disease with heart failure; N40.0 Benign prostatic hyperplasia without lower urinary tract symptoms; M19.90 Unspecified osteoarthritis, unspecified site; G47.33 Obstructive sleep apnea (adult) (pediatric); K59.00 Constipation, unspecified; F32.9 Major depressive disorder, single episode, unspecified; F41.9 Anxiety disorder, unspecified; H91.91 Unspecified hearing loss, right ear; Z79.01 Long term (current) use of anticoagulants; Z79.899 Other long term (current) drug therapy; Z88.2 Allergy status to sulfonamides; Z88.5 Allergy status to narcotic agent; Z88.6 Allergy status to analgesic agent; Z88.8 Allergy status to other drugs, medicaments and biological substances

== ENCOUNTER → 2019-10-26 | Outpatient (REF) | payer MEDICARE ==
[~2019-10-26] MED LIST changes: +AMOX500T2 PO; +PANT40TA3 PO
[2019-10-26 14:09] LABS: HEMATOCRIT 25.7 % (42.0-52.0); HEMOGLOBIN 7.7 g/dl (13.5-17.5); MEAN CORPUSCULAR HEMOGLOBIN 24.9 pg (27.0-33.0); MEAN CORPUSCULAR VOLUME 83.2 fl (80.0-96.0); PLATELET COUNT, AUTOMATED 376 10^3/uL (150-450); RED BLOOD COUNT 3.09 10^6/uL (4.30-6.10); WHITE BLOOD COUNT 8.2 10^3/uL (4.0-10.0)
[2019-10-26 14:35] LABS: ALBUMIN 2.5 GM/DL (3.2-5.2); ALT/SGPT 23 U/L (12-78); BILIRUBIN,TOTAL 0.5 MG/DL (0.2-1.0); BLOOD UREA NITROGEN 30 MG/DL (7-18); CALCIUM LEVEL 8.4 MG/DL (8.8-10.2); CARBON DIOXIDE LEVEL 31 MEQ/L (21-32); CHLORIDE LEVEL 104 MEQ/L (98-107); CREATININE FOR GFR 1.08 MG/DL (0.70-1.30); GLOMERULAR FILTRATION RATE > 60.0 (>35); GLUCOSE, FASTING 119 MG/DL (70-100); POTASSIUM SERUM 4.2 MEQ/L (3.5-5.1); SODIUM LEVEL 139 MEQ/L (136-145); TOTAL PROTEIN 6.7 GM/DL (6.4-8.2)
== END ==
LOC: M SFHCPLAZ 11:46
PROVIDERS: ATTEND Family Medicine
DX: D50.0 Iron deficiency anemia secondary to blood loss (chronic) (principal); Z43.4 Encounter for attention to other artificial openings of digestive tract
CPT/HCPCS: 36415; 80053; 85027; 99496; G0463

== ENCOUNTER → 2019-10-27 | Outpatient (REF) | payer MEDICARE ==
[2019-10-27 13:19] LABS: HEMATOCRIT 24.4 % (42.0-52.0); HEMOGLOBIN 7.2 g/dl (13.5-17.5); MEAN CORPUSCULAR HEMOGLOBIN 24.6 pg (27.0-33.0); MEAN CORPUSCULAR HGB CONC 29.5 g/dl (32.0-36.5); MEAN CORPUSCULAR VOLUME 83.3 fl (80.0-96.0); PLATELET COUNT, AUTOMATED 367 10^3/uL (150-450); RED BLOOD COUNT 2.93 10^6/uL (4.30-6.10); WHITE BLOOD COUNT 6.3 10^3/uL (4.0-10.0)
== END ==
LOC: M SFHCPLAZ 10:59
PROVIDERS: ATTEND Family Medicine
DX: D50.9 Iron deficiency anemia, unspecified (principal)
CPT/HCPCS: 36415; 85027; 86850; 86900; 86901; G0463

== ENCOUNTER 2019-10-28 09:55 | Outpatient (CLI) | payer MEDICARE ==
[~2019-10-28] VITALS: Ht 188 cm; Wt 91.6 kg
[2019-10-28 10:05] VITALS: BP 108/56
[2019-10-28 10:45] VITALS: BP 108/56
[2019-10-28 11:05] VITALS: BP 101/56
[2019-10-28 12:05] VITALS: BP 98/56
[2019-10-28 13:05] VITALS: BP 116/56
[2019-10-28 13:55] VITALS: BP 108/59
== END 2019-10-28 14:00 | disposition home or self-care (01) ==
LOC: M INFU 09:55
PROVIDERS: ATTEND Family Medicine
DX: D50.9 Iron deficiency anemia, unspecified (principal); Z88.5 Allergy status to narcotic agent; Z88.6 Allergy status to analgesic agent; Z88.2 Allergy status to sulfonamides
CPT/HCPCS: 36430; 86920; P9016

== ENCOUNTER → 2019-10-29 | Outpatient (REF) | payer MEDICARE ==
[2019-10-29 13:48] LABS: HEMOGLOBIN 7.8 g/dl (13.5-17.5); MEAN CORPUSCULAR HEMOGLOBIN 24.8 pg (27.0-33.0); MEAN CORPUSCULAR VOLUME 82.8 fl (80.0-96.0); PLATELET COUNT, AUTOMATED 345 10^3/uL (150-450); RED BLOOD COUNT 3.14 10^6/uL (4.30-6.10); WHITE BLOOD COUNT 7.4 10^3/uL (4.0-10.0)
== END ==
LOC: M SHH 13:21
PROVIDERS: ATTEND Family Medicine
DX: D50.9 Iron deficiency anemia, unspecified (principal)

== ENCOUNTER → 2019-10-31 | Outpatient (REF) | payer MEDICARE ==
[2019-10-31 14:10] LABS: HEMATOCRIT 25.9 % (42.0-52.0); HEMOGLOBIN 7.7 g/dl (13.5-17.5); MEAN CORPUSCULAR HEMOGLOBIN 24.7 pg (27.0-33.0); MEAN CORPUSCULAR HGB CONC 29.7 g/dl (32.0-36.5); PLATELET COUNT, AUTOMATED 323 10^3/uL (150-450); RED BLOOD COUNT 3.12 10^6/uL (4.30-6.10); WHITE BLOOD COUNT 6.1 10^3/uL (4.0-10.0)
== END ==
LOC: M SHH 13:57
PROVIDERS: ATTEND Family Medicine
DX: D50.0 Iron deficiency anemia secondary to blood loss (chronic) (principal)

== ENCOUNTER → 2019-11-05 | Outpatient (REF) | payer MEDICARE ==
[2019-11-05 11:18] LABS: HEMATOCRIT 28.1 % (42.0-52.0); HEMOGLOBIN 8.3 g/dl (13.5-17.5); MEAN CORPUSCULAR HEMOGLOBIN 24.3 pg (27.0-33.0); MEAN CORPUSCULAR HGB CONC 29.5 g/dl (32.0-36.5); MEAN CORPUSCULAR VOLUME 82.2 fl (80.0-96.0); PLATELET COUNT, AUTOMATED 270 10^3/uL (150-450); RED BLOOD COUNT 3.42 10^6/uL (4.30-6.10); WHITE BLOOD COUNT 4.9 10^3/uL (4.0-10.0)
== END ==
LOC: M SHH 10:55
PROVIDERS: ATTEND Family Medicine
DX: D50.9 Iron deficiency anemia, unspecified (principal)

== ENCOUNTER → 2019-11-12 | Outpatient (REF) | payer MEDICARE ==
[2019-11-12 10:32] LABS: HEMATOCRIT 29.1 % (42.0-52.0); HEMOGLOBIN 8.4 g/dl (13.5-17.5); MEAN CORPUSCULAR HEMOGLOBIN 22.7 pg (27.0-33.0); MEAN CORPUSCULAR HGB CONC 28.9 g/dl (32.0-36.5); MEAN CORPUSCULAR VOLUME 78.6 fl (80.0-96.0); PLATELET COUNT, AUTOMATED 284 10^3/uL (150-450)
[2019-11-12 10:57] LABS: BLOOD UREA NITROGEN 31 MG/DL (7-18); CALCIUM LEVEL 8.7 MG/DL (8.8-10.2); CARBON DIOXIDE LEVEL 30 MEQ/L (21-32); CHLORIDE LEVEL 103 MEQ/L (98-107); CREATININE FOR GFR 1.15 MG/DL (0.70-1.30); GLOMERULAR FILTRATION RATE > 60.0 (>35); GLUCOSE, FASTING 170 MG/DL (70-100); POTASSIUM SERUM 4.3 MEQ/L (3.5-5.1); SODIUM LEVEL 136 MEQ/L (136-145)
== END ==
LOC: M SHH 09:55
PROVIDERS: ATTEND Physician Assistant
DX: I50.42 Chronic combined systolic (congestive) and diastolic (congestive) heart failure (principal); I48.0 Paroxysmal atrial fibrillation

== ENCOUNTER → 2019-11-19 | Outpatient (REF) | payer MEDICARE ==
[2019-11-19 13:09] LABS: HEMATOCRIT 25.5 % (42.0-52.0); HEMOGLOBIN 7.4 g/dl (13.5-17.5); MEAN CORPUSCULAR HEMOGLOBIN 22.4 pg (27.0-33.0); MEAN CORPUSCULAR VOLUME 77.3 fl (80.0-96.0); PLATELET COUNT, AUTOMATED 303 10^3/uL (150-450); WHITE BLOOD COUNT 5.5 10^3/uL (4.0-10.0)
== END ==
LOC: M SHH 12:40
PROVIDERS: ATTEND Family Medicine
DX: D50.0 Iron deficiency anemia secondary to blood loss (chronic) (principal)

== ENCOUNTER → 2019-11-20 | Outpatient (REF) | payer MEDICARE ==
[2019-11-20 11:31] LABS: HEMOGLOBIN 7.7 g/dl (13.5-17.5); MEAN CORPUSCULAR HEMOGLOBIN 22.1 pg (27.0-33.0); MEAN CORPUSCULAR HGB CONC 28.5 g/dl (32.0-36.5); MEAN CORPUSCULAR VOLUME 77.4 fl (80.0-96.0); PLATELET COUNT, AUTOMATED 310 10^3/uL (150-450); RED BLOOD COUNT 3.49 10^6/uL (4.30-6.10); WHITE BLOOD COUNT 4.9 10^3/uL (4.0-10.0)
== END ==
LOC: M PLALAB 09:50
PROVIDERS: ATTEND Family Medicine
DX: D50.0 Iron deficiency anemia secondary to blood loss (chronic) (principal)

== ENCOUNTER → 2019-11-26 | Outpatient (REF) | payer MEDICARE ==
[~2019-11-26] MED LIST changes: +PANT-23 PO; +VITAD1000T PO
[2019-11-26 13:11] LABS: HEMATOCRIT 27.1 % (42.0-52.0); HEMOGLOBIN 8.1 g/dl (13.5-17.5); MEAN CORPUSCULAR HEMOGLOBIN 22.4 pg (27.0-33.0); MEAN CORPUSCULAR HGB CONC 29.9 g/dl (32.0-36.5); MEAN CORPUSCULAR VOLUME 74.9 fl (80.0-96.0); PLATELET COUNT, AUTOMATED 332 10^3/uL (150-450); RED BLOOD COUNT 3.62 10^6/uL (4.30-6.10); WHITE BLOOD COUNT 5.5 10^3/uL (4.0-10.0)
== END ==
LOC: M SHH 12:11
PROVIDERS: ATTEND Family Medicine
DX: D50.0 Iron deficiency anemia secondary to blood loss (chronic) (principal)

== ENCOUNTER → 2019-11-30 | Outpatient (CLI) | payer MEDICARE ==
--- NOTE | 2019-11-30 09:35 | REP ---
RIGHT UPPER QUADRANT SONOGRAPHY: HISTORY: Evaluate gallbladder. Status post percutaneous cholecystostomy. Now draining non-bilious fluid. SONOGRAPHIC FINDINGS: Scanning through the right upper quadrant of the abdomen demonstrates numerous solid hepatic lesions ranging in size up to 3.8 cm in greatest diameter consistent with fairly widespread hepatic metastatic disease. Pancreas is obscured by abdominal gas. There is a small right pleural effusion. No right renal abnormality is noted. The right kidney measures 10.4 x 5.0 x 4.5 cm. Multiple shadowing echogenic foci are seen in the gallbladder. The gallbladder is not distended. Images of the percutaneous cholecystostomy tube suggests that this is outside of the gallbladder within the peritoneal space adjacent to the inferior margin of the liver. IMPRESSION: Hepatic metastasis. Small right pleural effusion. Cholelithiasis. Percutaneous gallbladder drainage catheter appears to be outside of the lumen of the gallbladder in the peritoneal space along the inferior margin of the liver by ultrasound. Electronically Signed by Papo Bruno MD 11/30/2019 11:09 A
== END ==
LOC: M RAD 08:06
PROVIDERS: ATTEND Surgery
DX: K81.9 Cholecystitis, unspecified (principal); J90 Pleural effusion, not elsewhere classified; D50.9 Iron deficiency anemia, unspecified

== ENCOUNTER → 2019-11-30 | Outpatient (REF) | payer MEDICARE ==
[2019-11-30 15:44] LABS: HEMATOCRIT 25.4 % (42.0-52.0); HEMOGLOBIN 7.3 g/dl (13.5-17.5); MEAN CORPUSCULAR HEMOGLOBIN 21.3 pg (27.0-33.0); MEAN CORPUSCULAR HGB CONC 28.7 g/dl (32.0-36.5); MEAN CORPUSCULAR VOLUME 74.3 fl (80.0-96.0); PLATELET COUNT, AUTOMATED 295 10^3/uL (150-450); RED BLOOD COUNT 3.42 10^6/uL (4.30-6.10); WHITE BLOOD COUNT 5.4 10^3/uL (4.0-10.0)
== END ==
LOC: M SHH 15:28
PROVIDERS: ATTEND Family Medicine
DX: D50.9 Iron deficiency anemia, unspecified (principal)

== ENCOUNTER 2019-12-02 12:26 | Inpatient (IN) | payer MEDICARE ==
[~2019-12-02] VITALS: Ht 185.4 cm; Wt 88.1 kg
[~2019-12-02 12:26] MED LIST changes: -PANT-23 PO
[2019-12-02 13:03] LABS: BASO % 0.3 % (0.0-1.0); EOS % 0.6 % (0.0-3.0); HEMATOCRIT 28.5 % (42.0-52.0); HEMOGLOBIN 8.2 g/dl (13.5-17.5); LYMPH % 14.9 % (24.0-44.0); MEAN CORPUSCULAR HGB CONC 28.8 g/dl (32.0-36.5); MEAN CORPUSCULAR VOLUME 73.1 fl (80.0-96.0); MONO # 0.5 10^3/uL (0.0-0.8); MONO % 8.1 % (0.0-5.0); NEUTROPHILS % 75.6 % (36.0-66.0); PLATELET COUNT, AUTOMATED 348 10^3/uL (150-450); WHITE BLOOD COUNT 6.7 10^3/uL (4.0-10.0)
[2019-12-02 13:22] LABS: PROTHROMBIN TIME 12.9 SECONDS (11.8-14.0)
[2019-12-02 13:23] LABS: PARTIAL THROMBOPLASTIN TIME 38.1 SECONDS (25.0-38.4)
[2019-12-02 13:42] LABS: ALBUMIN 2.9 GM/DL (3.2-5.2); ALT/SGPT 36 U/L (12-78); BILIRUBIN,DIRECT 0.2 MG/DL (0.0-0.2); BILIRUBIN,TOTAL 0.5 MG/DL (0.2-1.0); BLOOD UREA NITROGEN 26 MG/DL (7-18); CALCIUM LEVEL 8.7 MG/DL (8.8-10.2); CARBON DIOXIDE LEVEL 28 MEQ/L (21-32); CHLORIDE LEVEL 102 MEQ/L (98-107); CK-MB VALUE MASS 1.4 NG/ML (<3.6); CPK CREATINE PHOSPHOKINASE 77 U/L (39-308); CREATININE FOR GFR 1.13 MG/DL (0.70-1.30); FREE T4 1.39 NG/DL (0.76-1.46); GLOMERULAR FILTRATION RATE > 60.0 (>35); GLUCOSE, FASTING 125 MG/DL (70-100); MB/CK RELATIVE INDEX 1.82 (< OR =4); NT-PRO BNP 21368 PG/ML (<450); POTASSIUM SERUM 4.4 MEQ/L (3.5-5.1); SODIUM LEVEL 138 MEQ/L (136-145); TOTAL PROTEIN 7.1 GM/DL (6.4-8.2); TROPONIN I < 0.02 NG/ML (< 0.10)
--- NOTE | 2019-12-02 14:09 | REP ---
CHEST X-RAY: Two views. HISTORY: Shortness of breath. Leg swelling. Comparison chest x-ray October 09, 2019. FINDINGS: Moderate cardiomegaly persists unchanged. Bipolar pacemaker remains in place via the left side. Monitoring electrodes are seen. There is blunting of the pleural angles bilaterally consistent with small bilateral effusions. The left is a little larger than the right. Pulmonary vasculature is not increased. There is no evidence of pulmonary edema. No focal infiltrate. IMPRESSION: Cardiomegaly with small bilateral pleural effusions consistent with CHF. No evidence of pulmonary edema. Electronically Signed by Papo Bruno MD 12/02/2019 02:39 P
[2019-12-02] MEDS ORDERED: FUROSEMIDE 40MG/4ML VIAL (J1940) IV ONE (14:15)
[2019-12-02 15:06] VITALS: BP 119/71
[2019-12-02] MEDS ORDERED: PANT-23 PO (15:11)
[2019-12-02] MEDS ORDERED: FINA5TAB2 PO (15:11)
[2019-12-02] MEDS ORDERED: FURO20TA2 PO (15:11)
[2019-12-02] MEDS ORDERED: ACETAMINOPHEN TAB 650MG DOSE (2X325MG) PO PRN (16:00)
[2019-12-02 17:06] VITALS: BP 119/71
[2019-12-02] MEDS ORDERED: SUCRALFATE 1 GM TAB PO SCH (17:30)
--- NOTE | 2019-12-02 17:49 | HPEPDOC ---
[facility] Medical History & Physical Date of Admission December 02, 2019 Date of Service: December 02, 2019 Primary Care Physician: ODILON ROMANO MD Attending Physician: LUIZ ESPOSITO MD History and Physical CHIEF COMPLAINT: weight gain, leg swelling HISTORY OF PRESENT ILLNESS: Marcus Lemus is an 86-year-old male who presented to the hospital due to weight gain and shortness of breath. He was recently admitted in September due to anemia and was additionally treated at that time for an acute exacerbation of CHF and acute on chronic cholecystitis. Since then, he has had home health visiting. He states over the past couple days, his home health aides have noticed that he is more short of breath when doing activities with physical therapy. He also states he had gained 5 pounds in the past 3 days. He denies any new changes to his medications. He denies any changes to his diet. He states he does not eat any salt. He does endorse moderate fluid intake, although cannot comment on how much. He states he is often taking sips of water due to dry mouth. He states that he does not subjectively feel more short of breath, but has been told that he is breathing heavier with exertion than his baseline. He also noticed increased swelling in both legs. PAST MEDICAL HISTORY: 1. Atrial flutter/fibrillation, s/p pacemaker placement 2. Pancreatic neuroendocrine tumor with liver metastasis 3. HTN 4. BPH 5. Depression/anxiety 6. Gout 7. Inflammatory arthritis 8. BPPV 9. GERD PAST SURGICAL HISTORY: 1. Bilateral knee replacement 2. Colon resection with ostomy 3. Ostomy reversal 4. Hernia repair with mesh 5. Pacemaker 6. Biopsy of pancreatic and liver masses SOCIAL HISTORY: Former smoker, no current alcohol use Lives with and son at home, daughter lives in [place] FAMILY HISTORY: Pt unsure family history ALLERGIES: Please see below. REVIEW OF SYSTEMS: CONSTITUTIONAL: Endorses weight gain per HPI. Denies fevers, chills, night sweats, fatigue. HEENT: Denies change in vision, change in hearing. CARDIOVASCULAR: Denies chest pain, palpitations, shortness of breath. RESPIRATORY: Denies dyspnea, cough, wheezing. GASTROINTESTINAL: Denies nausea, vomiting, abdominal pain, diarrhea, constipation, blood in stool. GENITOURINARY: Denies dysuria, urinary frequency, urinary urgency. SKIN: Denies rash, lesions. MUSCULOSKELETAL: Denies joint pain or muscle aches. NEUROLOGICAL: Endorses dizziness when standing, not worsened. Denies headache, weakness. PSYCHIATRIC: Denies change in mood. HOME MEDICATIONS: Please see below. PHYSICAL EXAMINATION: VITAL SIGNS: see below GENERAL: Alert, comfortable, in no acute distress HEENT: Normocephalic, atraumatic, PERRLA, EOMI, sclera anicteric, moist mucous membranes NECK: Supple, no lymphadenopathy, no JVD noted CARDIOVASCULAR: Regular rate and rhythm, normal S1 and S2 RESPIRATORY: Diminished breath sounds at the bases, otherwise clear to auscultation bilaterally with equal air entry bilaterally. No wheezing, rhonchi, or rales. ABDOMEN: Soft, nondistended, bowel sounds present. Tender to palpation in the RLQ and mildly in the RUQ. Clear yellowish fluid in percutaneous cholecystostomy tube. Insertion site appears clean without erythema or discharge.. EXTREMITIES: 2+ pitting edema in bilateral LE up to the mid calf. No cyanosis. SKIN: No rash noted. NEUROLOGIC: Alert and oriented 3 to person, place and time. No focal deficits appreciated PSYCHIATRIC: Mood and affect appropriate LABORATORY DATA: See below. MICROBIOLOGY: Please see below. ASSESSMENT: 84-year-old male with past medical history of CHF, atrial f ibrillation, chronic cholecystitis, and iron deficiency anemia, admitted for acute exacerbation of CHF PLAN: 1. Acute exacerbation of CHF. -echocardiogram from September 2019 showed EF 25-30%. Received 40 mg IV Lasix in the ED. Continue 40 mg IV Lasix daily, with additional doses as needed to achieve diuresis at 1-2 L per day. Consider treatment with Entresto vs SAYDA inhibitor, also beta david 2. Iron deficiency anemia Repeat iron studies IV iron infusions daily for 5 days, then start oral iron supplementation. 3. Chronic cholecystitis with percutaneous cholecystostomy catheter. Called Dr. Henson who suggests outpatient follow up after discharge CT abdomen/pelvis to further investigate abdominal tenderness 4. Atrial fibrillation status post pacemaker. Continue amiodarone. Previously on Eliquis, discontinued during last admission due to concern for GI bleed DVT prophylaxis: Lovenox, teds. GI prophylaxis: home PPI Disposition: Inpatient pending clinical improvement Attending attestation: I evaluated and examined the patient in person; I discussed the care with Resident in detail and agree with the plan above. Vital Signs Vital Signs Date Time Temp Pulse Resp B/P (MAP) Pulse Ox O2 Delivery O2 Flow Rate FiO2 12/02/19 15:30 85 99 12/02/19 15:15 111/52 (71) 12/02/19 13:46 18 Room Air 12/02/19 12:27 98.3 Laboratory Data Labs 24H Laboratory Tests 2 12/02/19 12:52: Immature Granulocyte % (Auto) 0.5, Neutrophils (%) (Auto) 75.6H, Lymphocytes (%) (Auto) 14.9L, Monocytes (%) (Auto) 8.1H, Eosinophils (%) (Auto) 0.6, Basophils (%) (Auto) 0.3, Neutrophils # (Auto) 5.0, Lymphocytes # (Auto) 1.0L, Monocytes # (Auto) 0.5, Eosinophils # (Auto) 0.0, Basophils # (Auto) 0.0, Nucleated Red Blood Cells % (auto) 0.0, Prothrombin Time 12.9, Prothromb Time International Ratio 1.00, Activated Partial Thromboplast Time 38.1, Anion Gap 8, Glomerular Filtration Rate > 60.0, Calcium Level 8.7L, Total Bilirubin 0.5, Direct Bilirubin 0.2, Aspartate Amino Transf (AST/SGOT) 48H, Alanine Aminotransferase (ALT/SGPT) 36, Alkaline Phosphatase 203H, Total Creatine Kinase 77, Creatine Kinase MB 1.4, Creatine Kinase MB Relative Index 1.82, Troponin I < 0.02, ED-Vug-P-Type Natriuretic Peptide 97720R, Total Protein 7.1, Albumin 2.9L, Albumin/Globulin Ratio 0.69L, Thyroid Stimulating Hormone (TSH) 3.330, Free Thyroxine 1.39 CBC/BMP Laboratory Tests 12/02/19 12:52 Home Medications Scheduled Allopurinol (Allopurinol) 100 Mg Tablet, 100 MG PO DAILY Amiodarone HCl (Amiodarone HCl) 200 Mg Tablet, 200 MG PO DAILY Cholecalciferol (Vitamin D3) (Vitamin D3) 1,000 Unit Tablet, 2,000 UNITS PO QPM Finasteride (Finasteride) 5 Mg Tablet, 5 MG PO DAILY Furosemide (Furosemide) 20 Mg Tablet, 20 MG PO DAILY Garvin-3 Fatty Acids/Fish Oil (Garvin 3 1,000 mg Softgel) 1 Cap Cap, 1,000 MG PO QPM Pantoprazole Sodium (Pantoprazole Sodium) 40 Mg Tablet.dr, 40 MG PO BID Sucralfate (Sucralfate) 1 Gm Tablet, 1 GRAM PO AC Allergies Coded Allergies: hydrocodone (Verified Adverse Reaction, Intermediate, nausea/vomiting/dizzy, 12/02/19) sulfamethoxazole (Verified Adverse Reaction, Mild, nausea, 12/02/19) trimethoprim (Verified Adverse Reaction, Mild, nausea, 12/02/19) LINDA IVVEROS D.O. December 02, 2019 17:25 LUIZ ESPOSITO MD December 06, 2019 19:28
[2019-12-02] MEDS ORDERED: FUROSEMIDE 40MG/4ML VIAL (J1940) IV SCH (18:00)
[2019-12-02] MEDS ORDERED: ISOVUE-370 76% 100ML VIAL As Ordered ONE (18:28)
[2019-12-02] MEDS ORDERED: SUCRALFATE 1 GM TAB PO PRN (18:30)
[2019-12-02 18:41] LABS: FERRITIN 21 NG/ML (26-388); IRON (FE) 18 UG/DL (65-175); PERCENT SATURATION 4.2 % (19.7-50.0); TOTAL IRON BINDING CAPACITY 428 UG/DL (250-450)
[2019-12-02 19:04] VITALS: BP 119/71
--- NOTE | 2019-12-02 19:29 | REPVR ---
PROCEDURE INFORMATION: Exam: CT Abdomen And Pelvis With Contrast Exam date and time: 12/02/2019 7:13 PM Age: 84 years old Clinical indication: Abdominal pain; Localized; Right lower quadrant (rlq); Additional info: Rlq pain TECHNIQUE: Imaging protocol: Computed tomography of the abdomen and pelvis with intravenous contrast. Axial, coronal and sagittal reformatted images were created and reviewed. Radiation optimization: All CT scans at this facility use at least one of these dose optimization techniques: automated exposure control; mA and/or kV adjustment per patient size (includes targeted exams where dose is matched to clinical indication); or iterative reconstruction. Contrast material: ISOVUE 370; Contrast volume: 100 ml; Contrast route: IV; COMPARISON: CT ABD PELVIS WITH CONTRAST 10/13/2019 11:59 AM FINDINGS: Heart: Mild cardiomegaly. No pericardial effusion. Cardiac pacer wires partially visualized. Lungs: Bilateral lower lobe consolidations, likely due to compressive atelectasis. Linear stranding and groundglass at the lung bases, likely due to atelectasis and/or scarring. Pleural space: Moderate pleural effusions, somewhat increased in size since the prior study. Liver: Mild hepatomegaly. Innumerable heterogeneous hepatic masses, likely increased in size and number since the prior study, although exact comparison is difficult due to multiplicity. Gallbladder and bile ducts: Probable mild gallbladder wall thickening, likely reactive. Pancreas: Lobular soft tissue in the pancreatic body, increased in size and conspicuity since the prior study with atrophy of the pancreatic tail. Spleen: Unremarkable. Adrenals: Unremarkable. Kidneys and ureters: Subcentimeter low-density renal lesions bilaterally, measuring up to 5 mm, too small to characterize. 1.6 cm simple left renal parapelvic cyst, similar to prior (no follow-up is indicated based on the imaging appearance). Nonobstructing left renal calculus. No hydronephrosis. Stomach and bowel: Suture material in the sigmoid colon, consistent with prior resection. Moderate amount of retained stool in the colon. Scattered colonic diverticula without evidence of diverticulitis. No obstruction. No bowel wall thickening. No pneumatosis. Appendix: Normal. Intraperitoneal space: No free fluid. No organized fluid collection. No free air. 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 atherosclerotic disease. No aortic aneurysm or dissection. Lymph nodes: No pathologically enlarged lymph nodes. Bladder: Unremarkable. Reproductive: Unremarkable. Bones/joints: No acute osseous abnormality. Osteopenia. Degenerative changes. Soft tissues: Postsurgical changes and mesh in the anterior abdominal wall. Percutaneous drainage catheter along the undersurface of the right lower quadrant abdominal wall. Small, fat containing inguinal hernias. IMPRESSION: 1. Lobular soft tissue in the pancreatic body, increased in size and conspicuity since the prior study. 2. Extensive hepatic metastatic disease with probable interval progression. 3. Moderate pleural effusions, somewhat increased in size since the prior study. 4. Additional findings, as above. COMMENTS: Consistent with the [employer]'s Incidental Findings Committee white paper (J Am Tanya Radiol 2018): Any incidental renal lesion less than 1.0 cm or classified as too small to characterize, or any incidental cystic renal lesion characterized as simple-appearing, is likely benign. No follow-up imaging is recommended for these lesions per consensus recommendations based on imaging criteria. Electronically signed by: Umair Arthur On 12/02/2019 19:29:40 PM
[2019-12-02] MEDS ORDERED: IRON SUCROSE 100MG 5ML VIAL (J1756 PER 1MG) IV SCH (20:00)
[2019-12-02] MEDS: PANTOPRAZOLE 40MG TAB (PROTONIX) PO SCH (20:23)
[2019-12-02] MEDS: IRON SUCROSE 100 MG in NS 100 ML OVER 1 HR IV SCH (20:23)
[2019-12-02] MEDS: ENOXAPARIN 40MG/0.4ML SYRINGE (J1650 PER 10MG) SC SCH (20:23)
[2019-12-02 21:00] VITALS: O2SAT 97
[2019-12-02 22:00] VITALS: BP 111/61
[2019-12-02 22:10] VITALS: BP 107/60
[2019-12-03] VITALS (8 sets, daily range): BP systolic 100–106; BP diastolic 58–63; O2SAT 97
[2019-12-03 06:42] LABS: HEMATOCRIT 23.8 % (42.0-52.0); MEAN CORPUSCULAR HEMOGLOBIN 21.1 pg (27.0-33.0); MEAN CORPUSCULAR HGB CONC 29.4 g/dl (32.0-36.5); MEAN CORPUSCULAR VOLUME 71.7 fl (80.0-96.0); PLATELET COUNT, AUTOMATED 282 10^3/uL (150-450); RED BLOOD COUNT 3.32 10^6/uL (4.30-6.10); WHITE BLOOD COUNT 5.3 10^3/uL (4.0-10.0)
[2019-12-03 07:00] LABS: BLOOD UREA NITROGEN 23 MG/DL (7-18); CALCIUM LEVEL 7.8 MG/DL (8.8-10.2); CARBON DIOXIDE LEVEL 29 MEQ/L (21-32); CHLORIDE LEVEL 103 MEQ/L (98-107); CREATININE FOR GFR 1.09 MG/DL (0.70-1.30); GLOMERULAR FILTRATION RATE > 60.0 (>35); GLUCOSE, FASTING 128 MG/DL (70-100); MAGNESIUM LEVEL 2.1 MG/DL (1.8-2.4); PHOSPHORUS LEVEL 3.6 MG/DL (2.5-4.9); POTASSIUM SERUM 4.1 MEQ/L (3.5-5.1); SODIUM LEVEL 137 MEQ/L (136-145)
[2019-12-03] MEDS: AMIODARONE 200 MG TAB (PACERONE) PO SCH (08:54)
[2019-12-03] MEDS: PANTOPRAZOLE 40MG TAB (PROTONIX) PO SCH ×2 (08:54→20:08)
[2019-12-03] MEDS: allopurinoL 100 MG TAB PO SCH (08:54)
[2019-12-03] MEDS: FINASTERIDE 5 MG TAB PO SCH (08:54)
[2019-12-03] MEDS ORDERED: FUROSEMIDE 40MG/4ML VIAL (J1940) IV SCH (09:00)
--- NOTE | 2019-12-03 11:21 | REP ---
Duplex extremity venous ultrasound: Bilateral lower extremity. History: Bilateral leg swelling. Rule out DVT. Findings: The deep veins are anechoic and fully compressible from the groin to the popliteal fossa in the left and right lower extremity. Color flow imaging is homogeneous. Spectral Doppler interrogation demonstrates intact respiratory variation in flow and normal manual augmentation of flow. There is no evidence of deep vein thrombosis. Impression: Negative bilateral lower extremity duplex venous ultrasound. No evidence of deep vein thrombosis. Electronically Signed by Papo Bruno MD 12/02/2019 02:03 P
--- NOTE | 2019-12-03 11:27 | IPNPDOC ---
Text Note Date of Service The patient was seen on 12/03/19. NOTE I visited the patient today after reviewing the prior imaging studies. He has been following up with me since his admission for cholecystitis and having managing the cholecystostomy drain. Likewise he has this ongoing issue with persistent anemia and he is actually scheduled for an endoscopy and colonoscopy next Saturday. He is currently admitted for exacerbation of his CHF. On examination he looks slightly out of breath but is able to maintain conversation. He is abdomen is relatively flat, soft, there is minimal tenderness around the exit drain site. Drain tube has serous fluid draining bag is empty. Impression and plan Dislodged cholecystostomy tube History of prior acute cholecystitis evidence for cholelithiasis in the most recent ultrasound Patient unfortunately sent to candidate for surgery given his multiple comorbidities, severe heart disease, possibly hostile abdomen with a large mesh from a prior ventral hernia repair among his other abdominal surgeries. It looks like his cholecystostomy tube was dislodged and it seems like the gallbladder is relatively quiet despite cysts. He does have cholelithiasis and he could have another bout of cholecystitis. Since the draining is no longer within the gallbladder consistent serving any purpose so I'll have the drain removed and we just monitor him for any symptoms from the cholelithiasis or from his cholecystitis. Since he has exacerbation of his CHF I will cancel his prior endoscopy in colonoscopy and scheduled for another date. VS,Ericbone, I+O VS, Fishbone, I+O Laboratory Tests 12/02/19 12:52 12/03/19 05:47 Vital Signs Date Time Temp Pulse Resp B/P (MAP) Pulse Ox O2 Delivery O2 Flow Rate FiO2 12/03/19 06:00 99.1 80 19 103/58 (73) 92 Room Air I&O- Last 24 Hours up to 6 AM 12/03/19 06:00 Intake Total 1025 ml Output Total 1125 ml Balance -100 ml LUIS MCGINNIS MD December 03, 2019 11:27
[2019-12-03 17:01] LABS: HEMATOCRIT 28.1 % (42.0-52.0); HEMOGLOBIN 8.3 g/dl (13.5-17.5)
--- NOTE | 2019-12-03 17:36 | IPNPDOC ---
Text Note Date of Service The patient was seen on 12/03/19. NOTE SUBJECTIVE: Marcus Lemus states he is feeling some improvement of his leg swe lling this morning. He does not have any shortness of breath at rest. OBJECTIVE: VITAL SIGNS: See below GENERAL: Alert, comfortable, in no acute distress HEENT: Normocephalic, atraumatic, sclera anicteric, moist mucous membranes NECK: Supple, no lymphadenopathy, no JVD noted CARDIOVASCULAR: Regular rate and rhythm, normal S1 and S2 RESPIRATORY: Clear to auscultation bilaterally with equal air entry bilaterally. No wheezing, rhonchi, or rales. ABDOMEN: Soft, nondistended, bowel sounds present. Mildly tender to palpation in the RLQ and RUQ, improved from admission. Clear yellowish fluid in percutaneous cholecystostomy tube. Insertion site appears clean without erythema or discharge. EXTREMITIES: 1+ pitting edema in bilateral LE. No cyanosis. SKIN: No rash noted. NEUROLOGIC: Alert and oriented 3 to person, place and time. No focal deficits appreciated PSYCHIATRIC: Mood and affect appropriate ASSESSMENT: 84-year-old male with past medical history of CHF, atrial fibrillation, chronic cholecystitis, and iron deficiency anemia, admitted for acute exacerbation of CHF PLAN: 1. Acute exacerbation of CHF. -echocardiogram from September 2019 showed EF 25-30%. Received 40 mg IV Lasix in the ED and one dose today with improvement of symptoms. Switch to PO lasix tomorrow 40mg Consider treatment with Entresto vs SAYDA inhibitor, also beta david 2. Iron deficiency anemia IV iron infusions daily for 5 days, then start oral iron supplementation. -s/p 1 unit PRBC today. Transfuse to maintain Hg >8 due to cardiac disease 3. Chronic cholecystitis with percutaneous cholecystostomy catheter. Dr. Duke has decided to remove the drain today based on recent imaging CT abdomen/pelvis revealed increased size of known pancreatic mass. Abdominal pain improved. 4. Atrial fibrillation status post pacemaker. Continue amiodarone. Previously on Eliquis, discontinued during last admission due to concern for GI bleed DVT prophylaxis: Lovenox, teds. GI prophylaxis: home PPI Disposition: Inpatient pending clinical improvement Attending attestation: I evaluated and examined the patient in person; I discussed the care with Resident in detail and agree with the plan above. VS,Fishbone, I+O VS, Fishbone, I+O Laboratory Tests 12/03/19 05:47 12/03/19 16:43 Vital Signs Date Time Temp Pulse Resp B/P (MAP) Pulse Ox O2 Delivery O2 Flow Rate FiO2 12/03/19 15:25 97.6 88 18 104/63 96 Room Air I&O- Last 24 Hours up to 6 AM 12/03/19 06:00 Intake Total 1025 ml Output Total 1125 ml Balance -100 ml LINDA VIVEROS D.O. December 03, 2019 17:36 LUIZ ESPOSITO MD December 06, 2019 19:46
[2019-12-03] MEDS: IRON SUCROSE 100 MG in NS 100 ML OVER 1 HR IV SCH (20:08)
[2019-12-03] MEDS: ENOXAPARIN 40MG/0.4ML SYRINGE (J1650 PER 10MG) SC SCH (20:08)
--- NOTE | 2019-12-03 22:04 | ECGEPIP ---
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
[2019-12-04] VITALS (8 sets, daily range): BP systolic 99–111; BP diastolic 54–70
[2019-12-04 07:23] LABS: HEMATOCRIT 26.7 % (42.0-52.0); HEMOGLOBIN 7.9 g/dl (13.5-17.5); MEAN CORPUSCULAR HEMOGLOBIN 21.9 pg (27.0-33.0); MEAN CORPUSCULAR HGB CONC 29.6 g/dl (32.0-36.5); PLATELET COUNT, AUTOMATED 276 10^3/uL (150-450); RED BLOOD COUNT 3.61 10^6/uL (4.30-6.10); WHITE BLOOD COUNT 5.8 10^3/uL (4.0-10.0)
[2019-12-04 07:44] LABS: BLOOD UREA NITROGEN 24 MG/DL (7-18); CARBON DIOXIDE LEVEL 30 MEQ/L (21-32); CHLORIDE LEVEL 103 MEQ/L (98-107); CREATININE FOR GFR 1.05 MG/DL (0.70-1.30); GLOMERULAR FILTRATION RATE > 60.0 (>35); GLUCOSE, FASTING 126 MG/DL (70-100); SODIUM LEVEL 138 MEQ/L (136-145)
[2019-12-04] MEDS ORDERED: FUROSEMIDE 40 MG TAB PO SCH (09:00)
[2019-12-04] MEDS: AMIODARONE 200 MG TAB (PACERONE) PO SCH (10:43)
[2019-12-04] MEDS: allopurinoL 100 MG TAB PO SCH (10:43)
[2019-12-04] MEDS: PANTOPRAZOLE 40MG TAB (PROTONIX) PO SCH ×2 (10:43→20:21)
[2019-12-04] MEDS: FINASTERIDE 5 MG TAB PO SCH (10:43)
--- NOTE | 2019-12-04 10:44 | IPNPDOC ---
Text Note Date of Service The patient was seen on 12/04/19. NOTE SUBJECTIVE: Marcus Lemus states he is feeling some improvement of his leg swe lling this morning. He does not have any shortness of breath at rest. OBJECTIVE: VITAL SIGNS: See below GENERAL: Alert, comfortable, in no acute distress HEENT: Normocephalic, atraumatic, sclera anicteric, moist mucous membranes NECK: Supple, no lymphadenopathy, no JVD noted CARDIOVASCULAR: Regular rate and rhythm, normal S1 and S2 RESPIRATORY: Clear to auscultation bilaterally with equal air entry bilaterally. No wheezing, rhonchi, or rales. ABDOMEN: Soft, nondistended, bowel sounds present. Mildly tender to palpation in the RLQ and RUQ, improved from admission. Clear yellowish fluid in percutaneous cholecystostomy tube. Insertion site appears clean without erythema or discharge. EXTREMITIES: 1+ pitting edema in bilateral LE. No cyanosis. SKIN: No rash noted. NEUROLOGIC: Alert and oriented 3 to person, place and time. No focal deficits appreciated PSYCHIATRIC: Mood and affect appropriate ASSESSMENT: 84-year-old male with past medical history of CHF, atrial fibrillation, chronic cholecystitis, and iron deficiency anemia, admitted for acute exacerbation of CHF PLAN: 1. Acute exacerbation of CHF. -echocardiogram from September 2019 showed EF 25-30%. Continue 40 mg IV Lasix daily, with additional doses as needed to achieve diuresis at 1-2 L per day. -Sodium restricted diet, fluid restriction to 1200mL per day. Consider treatment with Entresto vs SAYDA inhibitor, also beta david 2. Iron deficiency anemia IV iron infusions daily for 5 days, then start oral iron supplementation. -s/p 1 unit PRBC, another unit ordered today. Transfuse to maintain Hg >8 due to cardiac disease 3. Chronic cholecystitis with percutaneous cholecystostomy catheter. Dr. Duke has decided to remove the drain based on recent imaging CT abdomen/pelvis revealed increased size of known pancreatic mass. Abdominal pain improved. 4. Atrial fibrillation status post pacemaker. Continue amiodarone. Previously on Eliquis, discontinued during last admission due to concern for GI bleed DVT prophylaxis: Lovenox, teds. GI prophylaxis: home PPI Disposition: Inpatient pending clinical improvement Attending attestation: I evaluated and examined the patient in person; I discussed the care with Kelsey lock in detail and agree with the plan above. VS,Fishbone, I+O VS, Fishbone, I+O Laboratory Tests 12/03/19 16:43 12/04/19 06:38 Vital Signs Date Time Temp Pulse Resp B/P (MAP) Pulse Ox O2 Delivery O2 Flow Rate FiO2 12/04/19 06:00 97.2 86 19 102/54 (70) 96 Room Air I&O- Last 24 Hours up to 6 AM 12/04/19 06:00 Intake Total 1796 ml Output Total 1450 ml Balance 346 ml LINDA VIVEROS D.O. December 04, 2019 10:44 LUIZ ESPOSITO MD December 06, 2019 19:49
[2019-12-04] MEDS: MOM 30ML SUSPENSION UDC PO PRN (11:42)
[2019-12-04] MEDS ORDERED: FUROSEMIDE 40MG/4ML VIAL (J1940) IV ONE (12:00)
[2019-12-04 15:39] LABS: HEMATOCRIT 30.6 % (42.0-52.0); HEMOGLOBIN 9.1 g/dl (13.5-17.5)
[2019-12-04] MEDS: ENOXAPARIN 40MG/0.4ML SYRINGE (J1650 PER 10MG) SC SCH (20:21)
[2019-12-04] MEDS: IRON SUCROSE 100 MG in NS 100 ML OVER 1 HR IV SCH (20:21)
[2019-12-05 01:38] VITALS: O2SAT 97
[2019-12-05 04:54] VITALS: BP 106/60
[2019-12-05 06:11] LABS: HEMATOCRIT 29.5 % (42.0-52.0); HEMOGLOBIN 8.7 g/dl (13.5-17.5); MEAN CORPUSCULAR HEMOGLOBIN 21.9 pg (27.0-33.0); MEAN CORPUSCULAR HGB CONC 29.5 g/dl (32.0-36.5); MEAN CORPUSCULAR VOLUME 74.3 fl (80.0-96.0); PLATELET COUNT, AUTOMATED 293 10^3/uL (150-450); RED BLOOD COUNT 3.97 10^6/uL (4.30-6.10); WHITE BLOOD COUNT 5.9 10^3/uL (4.0-10.0)
[2019-12-05 06:44] LABS: BLOOD UREA NITROGEN 23 MG/DL (7-18); CALCIUM LEVEL 8.1 MG/DL (8.8-10.2); CARBON DIOXIDE LEVEL 28 MEQ/L (21-32); CHLORIDE LEVEL 103 MEQ/L (98-107); CREATININE FOR GFR 1.06 MG/DL (0.70-1.30); GLOMERULAR FILTRATION RATE > 60.0 (>35); GLUCOSE, FASTING 136 MG/DL (70-100); POTASSIUM SERUM 3.8 MEQ/L (3.5-5.1); SODIUM LEVEL 138 MEQ/L (136-145)
[2019-12-05 09:00] VITALS: O2SAT 97
[2019-12-05] MEDS: AMIODARONE 200 MG TAB (PACERONE) PO SCH (09:34)
[2019-12-05] MEDS: FUROSEMIDE 40 MG TAB PO SCH (09:34)
[2019-12-05] MEDS: FINASTERIDE 5 MG TAB PO SCH (09:34)
[2019-12-05] MEDS: allopurinoL 100 MG TAB PO SCH (09:34)
[2019-12-05] MEDS: PANTOPRAZOLE 40MG TAB (PROTONIX) PO SCH ×2 (09:34→19:52)
--- NOTE | 2019-12-05 12:54 | IPNPDOC ---
Text Note Date of Service The patient was seen on 12/05/19. NOTE SUBJECTIVE: Marcus Lemus states he is feeling well. He states the tightness in his legs has resolved. He denies SOB at rest, still has some SOB on exertion. OBJECTIVE: VITAL SIGNS: See below GENERAL: Alert, comfortable, in no acute distress HEENT: Normocephalic, atraumatic, sclera anicteric, moist mucous membranes NECK: Supple, no lymphadenopathy, no JVD noted CARDIOVASCULAR: Regular rate and rhythm, normal S1 and S2 RESPIRATORY: Clear to auscultation bilaterally with equal air entry bilaterally. No wheezing, rhonchi, or rales. ABDOMEN: Soft, nondistended, bowel sounds present. Mildly tender to palpation in the RLQ and RUQ, improved from admission. Clear yellowish fluid in percutaneous cholecystostomy tube. Insertion site appears clean without erythema or discharge. EXTREMITIES: 1+ pitting edema in bilateral feet. No cyanosis. SKIN: No rash noted. NEUROLOGIC: Alert and oriented 3 to person, place and time. No focal deficits appreciated PSYCHIATRIC: Mood and affect appropriate ASSESSMENT: 84-year-old male with past medical history of CHF, atrial fibrillation, chronic cholecystitis, and iron deficiency anemia, admitted for acute exacerbation of CHF PLAN: 1. Acute exacerbation of CHF. -echocardiogram from September 2019 showed EF 25-30%. s/p IV lasix, continue 40 mg lasix oral daily -Sodium restricted diet, fluid restriction to 1200mL per day. Consider treatment with Entresto vs SAYDA inhibitor, also beta david 2. Iron deficiency anemia IV iron infusions daily for 5 days, then start oral iron supplementation. -s/p 2 unit PRBC. Transfuse to maintain Hg >8 due to cardiac disease 3. Chronic cholecystitis with percutaneous cholecystostomy catheter s/p removal Dr. Duke has decided to remove the drain based on recent imaging CT abdomen/pelvis revealed increased size of known pancreatic mass. Abdominal pain improved. 4. Atrial fibrillation status post pacemaker. Continue amiodarone. Previously on Eliquis, discontinued during last admission due to concern for GI bleed DVT prophylaxis: Lovenox, teds. GI prophylaxis: home PPI Disposition: Inpatient pending clinical improvement Attending attestation: I evaluated and examined the patient in person; I discussed the care with Resident in detail and agree with the plan above. VS,Fishbone, I+O VS, Fishbone, I+O Laboratory Tests 12/04/19 15:21 12/05/19 05:30 Vital Signs Date Time Temp Pulse Resp B/P (MAP) Pulse Ox O2 Delivery O2 Flow Rate FiO2 12/05/19 04:54 97.5 85 106/60 (75) 96 12/05/19 01:38 Room Air 12/04/19 20:03 18 I&O- Last 24 Hours up to 6 AM 12/05/19 06:00 Intake Total 2145 ml Output Total 1680 ml Balance 465 ml LINDA VIVEROS D.O. December 05, 2019 12:54 LUIZ ESPOSITO MD December 06, 2019 19:55
[2019-12-05 14:00] VITALS: BP 101/62
[2019-12-05] MEDS: ENOXAPARIN 40MG/0.4ML SYRINGE (J1650 PER 10MG) SC SCH (19:52)
[2019-12-05] MEDS: IRON SUCROSE 100 MG in NS 100 ML OVER 1 HR IV SCH (19:52)
[2019-12-06 02:53] VITALS: O2SAT 96
[2019-12-06 06:00] VITALS: BP 105/61
[2019-12-06 06:06] LABS: HEMATOCRIT 31.4 % (42.0-52.0); HEMOGLOBIN 9.1 g/dl (13.5-17.5); MEAN CORPUSCULAR HEMOGLOBIN 22.1 pg (27.0-33.0); MEAN CORPUSCULAR VOLUME 76.2 fl (80.0-96.0); PLATELET COUNT, AUTOMATED 301 10^3/uL (150-450); RED BLOOD COUNT 4.12 10^6/uL (4.30-6.10); WHITE BLOOD COUNT 5.7 10^3/uL (4.0-10.0)
[2019-12-06 06:37] LABS: BLOOD UREA NITROGEN 23 MG/DL (7-18); CALCIUM LEVEL 7.9 MG/DL (8.8-10.2); CARBON DIOXIDE LEVEL 30 MEQ/L (21-32); CHLORIDE LEVEL 105 MEQ/L (98-107); CREATININE FOR GFR 1.16 MG/DL (0.70-1.30); GLOMERULAR FILTRATION RATE > 60.0 (>35); GLUCOSE, FASTING 126 MG/DL (70-100); POTASSIUM SERUM 3.8 MEQ/L (3.5-5.1); SODIUM LEVEL 142 MEQ/L (136-145)
[2019-12-06] MEDS: FINASTERIDE 5 MG TAB PO SCH (08:11)
[2019-12-06] MEDS: PANTOPRAZOLE 40MG TAB (PROTONIX) PO SCH ×2 (08:11→20:21)
[2019-12-06] MEDS: MOM 30ML SUSPENSION UDC PO PRN (08:11)
[2019-12-06] MEDS: AMIODARONE 200 MG TAB (PACERONE) PO SCH (08:11)
[2019-12-06] MEDS: allopurinoL 100 MG TAB PO SCH (08:11)
[2019-12-06] MEDS: FUROSEMIDE 40 MG TAB PO SCH (08:11)
[2019-12-06 14:00] VITALS: BP 121/72
[2019-12-06] MEDS: IRON SUCROSE 100 MG in NS 100 ML OVER 1 HR IV SCH (20:22)
[2019-12-06] MEDS: ENOXAPARIN 40MG/0.4ML SYRINGE (J1650 PER 10MG) SC SCH (20:22)
[2019-12-06 22:00] VITALS: BP 105/56
[2019-12-07 06:00] VITALS: BP 102/57
[2019-12-07 06:11] LABS: HEMATOCRIT 31.5 % (42.0-52.0); MEAN CORPUSCULAR HEMOGLOBIN 22.2 pg (27.0-33.0); MEAN CORPUSCULAR HGB CONC 28.6 g/dl (32.0-36.5); MEAN CORPUSCULAR VOLUME 77.8 fl (80.0-96.0); PLATELET COUNT, AUTOMATED 272 10^3/uL (150-450); RED BLOOD COUNT 4.05 10^6/uL (4.30-6.10)
[2019-12-07 06:33] LABS: BLOOD UREA NITROGEN 20 MG/DL (7-18); CALCIUM LEVEL 8.3 MG/DL (8.8-10.2); CARBON DIOXIDE LEVEL 31 MEQ/L (21-32); CHLORIDE LEVEL 107 MEQ/L (98-107); CREATININE FOR GFR 1.17 MG/DL (0.70-1.30); GLOMERULAR FILTRATION RATE > 60.0 (>35); GLUCOSE, FASTING 133 MG/DL (70-100); POTASSIUM SERUM 4.6 MEQ/L (3.5-5.1); SODIUM LEVEL 142 MEQ/L (136-145)
[2019-12-07] MEDS: FUROSEMIDE 40 MG TAB PO SCH (07:53)
[2019-12-07] MEDS: AMIODARONE 200 MG TAB (PACERONE) PO SCH (07:54)
[2019-12-07] MEDS: PANTOPRAZOLE 40MG TAB (PROTONIX) PO SCH (07:54)
[2019-12-07] MEDS: FINASTERIDE 5 MG TAB PO SCH (07:54)
[2019-12-07] MEDS: allopurinoL 100 MG TAB PO SCH (07:54)
[2019-12-07] MEDS: MOM 30ML SUSPENSION UDC PO PRN (08:00)
[2019-12-07] MEDS ORDERED: COLA100C5 PO (12:36)
[2019-12-07] MEDS ORDERED: IRON65TA2 PO (12:36)
--- NOTE | 2019-12-07 17:27 | IPNPDOC ---
Date Seen The patient was seen on 12/06/19. Progress Note SUBJECTIVE: 84-year-old male with past medical history of CHF, atrial fibrillation and anemia is admitted for acute on chronic CHF exacerbation. Patient has been diuresed with good clinical response. He also required 2 units of packed red blood cell transfusion for anemia, along with IV iron infusion for severe iron deficiency. Patient has been doing well over the past 24-48 hours, reports improvement in dyspnea and cough, minimal symptoms at this time. He denies any chest pain, nausea, vomiting, diarrhea or constipation. 10 point review of system is negative except for above PHYSICAL EXAMINATION: VITAL SIGNS: Please see below. GENERAL: No distress HEENT: Normocephalic, atraumatic, moist mucous membranes NECK: Supple CARDIOVASCULAR EXAMINATION: S1, S2, irregular RESPIRATORY EXAMINATION: Scattered rhonchi, no wheezing ABDOMINAL EXAMINATION: Soft, nontender, nondistended, positive bowel sounds EXTREMITIES: Lower extremity edema present SKIN: No rash NEUROLOGICAL EXAMINATION: Alert and oriented 3, no focal deficits PSYCHIATRIC EXAMINATION: Calm and cooperative LABORATORY DATA, IMAGING STUDIES, MICROBIOLOGY: Please see below. ASSESSMENT AND PLAN: 84-year-old male with past medical history of congestive heart failure, atrial fibrillation and anemia is admitted for acute on chronic CHF exacerbation. PROBLEMS: 1. Acute on chronic CHF exacerbation: Significant critical improvement with IV diuresis, continue oral Lasix for now, TTE reviewed. 2. Iron deficiency anemia: Required 2 units of packed blood cell transfusions to maintain hemoglobin over 8, status post IV iron infusions, we'll start oral supplementation. 3. Atrial fibrillation: Continue amiodarone, not on anticoagulation. VS, I&O, 24H, Fishbone Vital Signs/I&O Vital Signs Date Time Temp Pulse Resp B/P (MAP) Pulse Ox O2 Delivery O2 Flow Rate FiO2 12/07/19 06:00 96.9 88 17 102/57 (72) 96 Room Air I&O- Last 24 Hours up to 6 AM0 12/07/19 06:00 Intake Total 485 ml Output Total 1125 ml Balance -640 ml Laboratory Data 24H LABS Laboratory Tests 2 12/07/19 05:55: Nucleated Red Blood Cells % (auto) 0.0, Anion Gap 4L, Glomerular Filtration Rate > 60.0, Calcium Level 8.3L CBC/BMP Laboratory Tests 12/07/19 05:55 LUIZ ESPOSITO MD December 07, 2019 17:26
--- NOTE | 2019-12-07 19:12 | DS.PDOC ---
Discharge Summary General Date of Admission December 02, 2019 at 16:00 Date of Discharge December 07, 2019 Primary Care Physician: ODILON ROMANO MD Attending Physician: LUIZ ESPOSITO MD Specialist/Consultants Involve: LUIS MCGINNIS MD Discharge Summary PROCEDURES PERFORMED DURING STAY: [None]. ADMITTING DIAGNOSES: 1. Acute exacerbation of CHF. 2. Chronic cholecystitis with percutaneous cholecystostomy catheter DISCHARGE DIAGNOSES: 1. Acute exacerbation of CHF. 2. Chronic cholecystitis with percutaneous cholecystostomy catheter COMPLICATIONS/CHIEF COMPLAINT: CHF. HISTORY OF PRESENT ILLNESS: Marcus Lemus is an 86-year-old male who presented to the hospital due to weight gain and shortness of breath. He was recently admitted in September due to anemia and was additionally treated at that time for an acute exacerbation of CHF and acute on chronic cholecystitis. Since then, he has had home health visiting. He states over the past couple days, his home health aides have noticed that he is more short of breath when doing activities with physical therapy. He also states he had gained 5 pounds in the past 3 days. He denies any new changes to his medications. He denies any changes to his diet. He states he does not eat any salt. He does endorse moderate fluid intake, although cannot comment on how much. He states he is often taking sips of water due to dry mouth. He states that he does not subjectively feel more short of breath, but has been told that he is breathing heavier with exertion than his baseline. He also noticed increased swelling in both legs. HOSPITAL COURSE: Patient was admitted with shortness of breath, found to be in acute on chronic congestive heart failure. He was started on IV Lasix. On his previous hospitalization he had a percutaneous cholecystostomy tube placed for chronic cholecystitis. He was also found to have GI bleed and anoscopy planned for shortly after that discharge. On admission, he underwent right upper quadrant ultrasound, which found that cholecystostomy tube was not in proper place. Surgery was consulted and tube was removed. The patient was diuresed well. However, he was found to be anemic at hemoglobin 7.0. He was transfused a total of 2 units packed red blood cells, with goal of hemoglobin greater than 8.0. In addition, his iron was found to be low and he underwent iron transfusion. On hospital day 6, the patient was found to be stable, fluid status was close to euvolemic, and he was discharged home with plan to follow up with surgery for colonoscopy. He was also discharged home on oral iron supplementation. He will need to follow-up with his PCP within 7 days. DISCHARGE MEDICATIONS: Please see below. ALLERGIES: Please see below. PHYSICAL EXAMINATION ON DISCHARGE: VITAL SIGNS: Please see below. GENERAL: No distress HEENT: Normocephalic, atraumatic, moist mucous membranes NECK: Supple CARDIOVASCULAR EXAMINATION: S1, S2, irregular RESPIRATORY EXAMINATION: Scattered rhonchi, no wheezing ABDOMINAL EXAMINATION: Soft, nontender, nondistended, positive bowel sounds EXTREMITIES: Lower extremity edema present SKIN: No rash NEUROLOGICAL EXAMINATION: Alert and oriented 3, no focal deficits PSYCHIATRIC EXAMINATION: Calm and cooperative LABORATORY DATA: Please see below. IMAGING: CT ABD/PEL: IMPRESSION: 1. Lobular soft tissue in the pancreatic body, increased in size and conspicuity since the prior study. 2. Extensive hepatic metastatic disease with probable interval progression. 3. Moderate pleural effusions, somewhat increased in size since the prior study. 4. Additional findings, as above. PROGNOSIS: Fair ACTIVITY: [As tolerated]. DIET: 2 g sodium diet DISCHARGE PLAN: Home DISPOSITION: Home, Self-Care. DISCHARGE INSTRUCTIONS: 1. Follow-up with gastroenterology regarding colonoscopy in 1 week. 2. Follow-up with PCP within 7 days ITEMS TO FOLLOWUP ON ON OUTPATIENT: None DISCHARGE CONDITION: [Stable]. TIME SPENT ON DISCHARGE: Greater than 35 minutes. Vital Signs/I&Os Vital Signs Date Time Temp Pulse Resp B/P (MAP) Pulse Ox O2 Delivery O2 Flow Rate FiO2 12/07/19 06:00 96.9 88 17 102/57 (72) 96 Room Air I&O- Last 24 Hours up to 6 AM 12/07/19 06:00 Intake Total 485 ml Output Total 1125 ml Balance -640 ml Laboratory Data Labs 24H Laboratory Tests 2 12/07/19 05:55: Nucleated Red Blood Cells % (auto) 0.0, Anion Gap 4L, Glomerular Filtration Rate > 60.0, Calcium Level 8.3L CBC/BMP Laboratory Tests 12/07/19 05:55 Discharge Medications Scheduled Allopurinol (Allopurinol) 100 Mg Tablet, 100 MG PO DAILY, (Reported) Amiodarone HCl (Amiodarone HCl) 200 Mg Tablet, 200 MG PO DAILY, (Reported) Cholecalciferol (Vitamin D3) (Vitamin D3) 1,000 Unit Tablet, 2,000 UNITS PO QPM, (Reported) Docusate Sodium (Colace) 100 Mg Capsule, 200 MG PO DAILY Ferrous Sulfate (Iron) 325 Mg Tablet, 1 TAB PO DAILY Finasteride (Finasteride) 5 Mg Tablet, 5 MG PO DAILY, (Reported) Furosemide (Furosemide) 20 Mg Tablet, 20 MG PO DAILY, (Reported) [place]-3 Fatty Acids/Fish Oil ([place] 3 1,000 mg Softgel) 1 Cap Cap, 1,000 MG PO QPM, (Reported) Pantoprazole Sodium (Pantoprazole Sodium) 40 Mg Tablet.dr, 40 MG PO BID, (Reported) Sucralfate (Sucralfate) 1 Gm Tablet, 1 GRAM PO AC, (Reported) Allergies Coded Allergies: hydrocodone (Verified Adverse Reaction, Intermediate, nausea/vomiting/dizzy, 12/02/19) sulfamethoxazole (Verified Adverse Reaction, Mild, nausea, 12/02/19) trimethoprim (Verified Adverse Reaction, Mild, nausea, 12/02/19) GME ATTESTATION GME ATTESTATION My faculty preceptor for this patient encounter was physically present during the encounter and was fully available. All aspects of the patient interview, examination, medical decision making process, and medical care plan development were reviewed and approved by the faculty preceptor. The faculty preceptor is aware and concurs with the plan as stated in the body of this note and will attest to such by his/her cosignature. BETTY KAUFMAN MD December 07, 2019 19:12
== END 2019-12-07 14:10 | disposition home health service (06) | DRG 292 ==
LOC: M ED 12:26 → M ED INP 16:00 → ENRESERV 16:57 → M MSPAV 17:03
PROVIDERS: ADMIT Internal Medicine; ATTEND Internal Medicine
PROC: 30233N1 Transfusion of Nonautologous Red Blood Cells into Peripheral Vein, Percutaneous Approach (ICD-10-PCS; principal; 2019-12-03)
DX: I11.0 Hypertensive heart disease with heart failure (principal); I48.92 Unspecified atrial flutter; C78.7 Secondary malignant neoplasm of liver and intrahepatic bile duct; C7A.8 Other malignant neuroendocrine tumors; I50.9 Heart failure, unspecified; I48.91 Unspecified atrial fibrillation; D50.9 Iron deficiency anemia, unspecified; N40.0 Benign prostatic hyperplasia without lower urinary tract symptoms; F32.9 Major depressive disorder, single episode, unspecified; F41.9 Anxiety disorder, unspecified; M10.9 Gout, unspecified; K81.1 Chronic cholecystitis; K21.9 Gastro-esophageal reflux disease without esophagitis; H81.10 Benign paroxysmal vertigo, unspecified ear; Z96.653 Presence of artificial knee joint, bilateral; Z90.49 Acquired absence of other specified parts of digestive tract; Z87.891 Personal history of nicotine dependence; Z95.0 Presence of cardiac pacemaker; Z96.89 Presence of other specified functional implants; Z79.899 Other long term (current) drug therapy; Z88.2 Allergy status to sulfonamides; Z88.5 Allergy status to narcotic agent; Z88.8 Allergy status to other drugs, medicaments and biological substances

== ENCOUNTER → 2019-12-15 | Outpatient (REF) | payer MEDICARE ==
[~2019-12-15] MED LIST changes: +COLA100C5 PO; +IRON65TA2 PO; +PANT-23 PO
[2019-12-15 14:15] LABS: HEMATOCRIT 39.5 % (42.0-52.0); HEMOGLOBIN 11.4 g/dl (13.5-17.5); MEAN CORPUSCULAR HEMOGLOBIN 23.6 pg (27.0-33.0); MEAN CORPUSCULAR HGB CONC 28.9 g/dl (32.0-36.5); MEAN CORPUSCULAR VOLUME 81.8 fl (80.0-96.0); PLATELET COUNT, AUTOMATED 256 10^3/uL (150-450); RED BLOOD COUNT 4.83 10^6/uL (4.30-6.10); WHITE BLOOD COUNT 5.1 10^3/uL (4.0-10.0)
== END ==
LOC: M SHH 13:35
PROVIDERS: ATTEND Family Medicine
DX: D50.9 Iron deficiency anemia, unspecified (principal)

== ENCOUNTER → 2020-01-15 | Outpatient (REF) | payer MEDICARE ==
[~2020-01-15] MED LIST changes: -CLOT1CRE2; +CLOT1CRE56
[2020-01-15 18:05] LABS: HEMATOCRIT 41.5 % (42.0-52.0); HEMOGLOBIN 12.4 g/dl (13.5-17.5); MEAN CORPUSCULAR HEMOGLOBIN 24.3 pg (27.0-33.0); MEAN CORPUSCULAR HGB CONC 29.9 g/dl (32.0-36.5); MEAN CORPUSCULAR VOLUME 81.2 fl (80.0-96.0); PLATELET COUNT, AUTOMATED 207 10^3/uL (150-450); RED BLOOD COUNT 5.11 10^6/uL (4.30-6.10); WHITE BLOOD COUNT 5.3 10^3/uL (4.0-10.0)
[2020-01-15 18:16] LABS: CALCIUM LEVEL 8.6 MG/DL (8.8-10.2); CREATININE FOR GFR 1.31 MG/DL (0.70-1.30); GLOMERULAR FILTRATION RATE 55.2 (>35)
== END ==
LOC: M SFHCPLAZ 14:44
PROVIDERS: ATTEND Family Medicine
DX: D50.0 Iron deficiency anemia secondary to blood loss (chronic) (principal); R60.0 Localized edema
CPT/HCPCS: 36415; 80048; 85027; G0463

== ENCOUNTER → 2020-01-27 | Outpatient (REF) | payer MEDICARE ==
[~2020-01-27] MED LIST changes: -AMIO200T PO; +AMIO200T3 PO; +D31000TA2 PO; +DOCU100C16 PO; +FERR1TAB8 PO; +PANT40TA29 PO; -PANT40TA3 PO; +PARO5TAB PO; -VITAD1000T PO
[2020-01-27 12:40] LABS: BASO % 0.2 % (0.0-1.0); EOS % 0.4 % (0.0-3.0); HEMATOCRIT 39.2 % (42.0-52.0); HEMOGLOBIN 11.9 g/dl (13.5-17.5); LYMPH # 0.7 10^3/uL (1.5-5.0); LYMPH % 15.9 % (24.0-44.0); MEAN CORPUSCULAR HEMOGLOBIN 24.8 pg (27.0-33.0); MEAN CORPUSCULAR HGB CONC 30.4 g/dl (32.0-36.5); MEAN CORPUSCULAR VOLUME 81.8 fl (80.0-96.0); MONO # 0.3 10^3/uL (0.0-0.8); MONO % 7.2 % (0.0-5.0); NEUTROPHILS # 3.4 10^3/uL (1.5-8.5); NEUTROPHILS % 75.9 % (36.0-66.0); PLATELET COUNT, AUTOMATED 148 10^3/uL (150-450); RED BLOOD COUNT 4.79 10^6/uL (4.30-6.10); WHITE BLOOD COUNT 4.5 10^3/uL (4.0-10.0)
[2020-01-27 12:53] LABS: ALBUMIN 2.8 GM/DL (3.2-5.2); BILIRUBIN,TOTAL 0.4 MG/DL (0.2-1.0); CALCIUM LEVEL 8.7 MG/DL (8.8-10.2); CHOLESTEROL RISK RATIO 2.793 (<5); CREATININE FOR GFR 1.29 MG/DL (0.70-1.30); GLOMERULAR FILTRATION RATE 56.2 (>35); THYROID STIMULATING HORMONE 4.54 uIU/ML (0.358-3.740); TOTAL 25(OH) VITAMIN D 42.9 NG/ML (30.0-100.0); TOTAL PROTEIN 6.5 GM/DL (6.4-8.2)
[2020-01-27 13:49] LABS: OVALOCYTES 1+; POIKILOCYTOSIS 1+
[2020-01-27 13:50] LABS: PLATELET ESTIMATE NORMAL (NORMAL)
[2020-01-27 14:19] LABS: APPEARANCE, URINE CLEAR (CLEAR); BACTERIA, URINE AUTO NEGATIVE (NEGATIVE); BILIRUBIN, URINE AUTO NEGATIVE (NEGATIVE); BLOOD, URINE BLOOD NEGATIVE (NEGATIVE); COLOR, URINE YELLOW (YELLOW); GLUCOSE, URINE (UA) AUTO NEGATIVE (NEGATIVE); KETONE, URINE AUTO NEGATIVE (NEGATIVE); LEUKOCYTE ESTERASE, URINE AUTO NEGATIVE (NEGATIVE); MUCUS, URINE SMALL (NEGATIVE); NITRITE, URINE AUTO NEGATIVE (NEGATIVE); PROTEIN, URINE AUTO NEGATIVE (NEGATIVE); RBC, URINE AUTO 0 /HPF (0-3); SPECIFIC GRAVITY URINE AUTO 1.012 (1.002-1.035); SQUAMOUS EPITHELIAL CELL UR AU 0 /HPF (0-6); WBC, URINE AUTO 0 /HPF (0-3)
[2020-01-27 14:30] LABS: HEMOGLOBIN A1c 6.8 %
== END ==
LOC: M SHH 11:56
PROVIDERS: ATTEND Physician Assistant Medical
DX: R73.9 Hyperglycemia, unspecified (principal); I48.91 Unspecified atrial fibrillation; E66.3 Overweight; Z79.899 Other long term (current) drug therapy

== ENCOUNTER 2020-02-09 03:50 | Inpatient (IN) | payer MEDICARE ==
[~2020-02-09] VITALS: Ht 182.9 cm; Wt 88.1 kg
[~2020-02-09 03:50] MED LIST changes: -DOCU100C16 PO; -FERR1TAB8 PO; -PARO5TAB PO
[2020-02-09] MEDS ORDERED: GI COCKTAIL 50ML BTL(HYOSCYAMINE/MAALOX/LIDOCAINE VISCOUS)(1:3:1) PO ONE (04:15)
[2020-02-09 04:51] LABS: BASO % 0.4 % (0.0-1.0); EOS % 0.7 % (0.0-3.0); HEMATOCRIT 39.4 % (42.0-52.0); HEMOGLOBIN 12.4 g/dl (13.5-17.5); LYMPH # 0.9 10^3/uL (1.5-5.0); LYMPH % 15.5 % (24.0-44.0); MEAN CORPUSCULAR HEMOGLOBIN 25.9 pg (27.0-33.0); MEAN CORPUSCULAR HGB CONC 31.5 g/dl (32.0-36.5); MEAN CORPUSCULAR VOLUME 82.3 fl (80.0-96.0); MONO # 0.5 10^3/uL (0.0-0.8); MONO % 8.6 % (0.0-5.0); NEUTROPHILS # 4.1 10^3/uL (1.5-8.5); NEUTROPHILS % 74.6 % (36.0-66.0); PLATELET COUNT, AUTOMATED 168 10^3/uL (150-450); RED BLOOD COUNT 4.79 10^6/uL (4.30-6.10); WHITE BLOOD COUNT 5.6 10^3/uL (4.0-10.0)
[2020-02-09 04:55] LABS: INR 1.07; PROTHROMBIN TIME 13.6 SECONDS (11.8-14.0)
[2020-02-09 04:58] LABS: ALBUMIN 2.9 GM/DL (3.2-5.2); BILIRUBIN,DIRECT 0.3 MG/DL (0.0-0.2); BILIRUBIN,TOTAL 0.5 MG/DL (0.2-1.0); TOTAL PROTEIN 6.8 GM/DL (6.4-8.2)
[2020-02-09] MEDS ORDERED: FUROSEMIDE 40MG/4ML VIAL (J1940) IV ONE (05:30)
[2020-02-09] MEDS ORDERED: PARO5TAB PO (06:47)
[2020-02-09] MEDS ORDERED: DOCU100C16 PO (06:47)
[2020-02-09] MEDS ORDERED: FURO40TA2 PO (06:47)
[2020-02-09] MEDS ORDERED: FERR1TAB8 PO (06:47)
--- NOTE | 2020-02-09 07:57 | REP ---
Clinical: Chest pain. Comparison: 12/02/2019. Findings: Bibasilar infiltrates (left greater than right) along with small to moderate left pleural effusion noted. Element of pulmonary edema cannot be excluded. Cardiac silhouette is upper limits of normal. Dual lead pacemaker in satisfactory position. No pneumothorax. Skeletal structures are intact. Impression: 1. Subtle lower lobe infiltrates (left greater than right) and small/moderate pleural effusions (left greater than right). 2. Element of pulmonary edema cannot be excluded. Electronically Signed by Jim Wright MD 02/09/2020 07:48 A
--- NOTE | 2020-02-09 08:03 | ECGEPIP ---
[facility] - ED Test Date: 2020-02-09 Pat Name: CAROLINA SMITH Department: Room: - Gender: Male Worsted Winder: : 1935 Requested By: ALAN Koroma Order Number: [id number] Reading MD: Alan Melgoza Measurements Intervals [place] Rate: 85 P: 238 [place]: 182 QRS: 86 QRSD: 229 T: 146 QT: 489 QTc: 583 Interpretive Statements ELECTRONIC ATRIAL PACEMAKER ELECTRONIC VENTRICULAR PACEMAKER Similar to tracing done 12-02-19 Electronically Signed on 02-09-2020 8:03:25 EDT by Alan Melgoza
--- NOTE | 2020-02-09 10:40 | HPEPDOC ---
General Date of Admission Feb 09, 2020 at 10:07 Date of Service: Feb 09, 2020 Chief Complaint The patient is a 84-year-old male admitted with a reason for visit of CHF. 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 Patient stated that for past few days he has been having increased shortness of breath with leg swelling and orthopnea. In ER patient was found to have small to moderate pleural effusion on the chest x-ray, BNP elevated to 28,000, troponin 0,04. Patient denied fever, chills, nausea, vomiting, palpitations, diarrhea or dysuria Home Medications Scheduled Allopurinol (Allopurinol) 100 Mg Tablet, 100 MG PO DAILY, (Reported) Amiodarone HCl (Amiodarone HCl) 200 Mg Tablet, 200 MG PO DAILY, (Reported) Cholecalciferol (Vitamin D3) (Vitamin D3) 1,000 Unit Tablet, 2,000 UNITS PO QPM, (Reported) Docusate Sodium (Docusate Sodium) 100 Mg Capsule, 100 MG PO BID, (Reported) Ferrous Sulfate (Ferrous Sulfate) 325 Mg Tablet, 325 MG PO QHS, (Reported) Finasteride (Finasteride) 5 Mg Tablet, 5 MG PO DAILY, (Reported) Furosemide (Furosemide) 20 Mg Tablet, 20 MG PO Q2D, (Reported) Furosemide (Furosemide) 40 Mg Tablet, 40 MG PO Q2D, (Reported) [place]-3 Fatty Acids/Fish Oil ([place] 3 1,000 mg Softgel) 1 Cap Cap, 1,000 MG PO QHS, (Reported) Pantoprazole Sodium (Pantoprazole Sodium) 40 Mg Tablet.dr, 40 MG PO BID, (Reported) Paroxetine (Paroxetine HCl) 10 Mg Tablet, 10 MG PO DAILY, (Reported) Sucralfate (Sucralfate) 1 Gm Tablet, 1 GRAM PO ACHS, (Reported) Allergies Coded Allergies: hydrocodone (Verified Adverse Reaction, Intermediate, nausea/vomiting/dizzy, 12/02/19) sulfamethoxazole (Verified Adverse Reaction, Mild, nausea, 12/02/19) trimethoprim (Verified Adverse Reaction, Mild, nausea, 12/02/19) Past Medical History Medical History INFLAMMATORY ARTHRITIS; POSITIVE NASRA ATRIAL FLUTTER - DR. TREVIZO CHRONIC DRY EYES HTN BPPV BPH PACEMAKER 11/2017 - DR. TREVIZO DARYL; DOES NOT TOLERATE CPAP DIABETES MELLITUS TYPE 2 DEPRESSION/ANXIETY PSEUDOGOUT HEARING LOSS, RIGHT EAR NEUROPATHY BALANCE PROBLEMS PANCREATIC NEUROENDOCRINE TUMOR WITH METS TO LIVER - COULD NOT TOLERATE OCTREOTIDE; [facility] ONC HX C. DIFF IN 08/2019 Surgical History BILATERAL KNEE REPLACEMENT PART OF COLON RESECTION WITH OSTOMY PLACEMENT 1989 OSTOMY REVERSAL 1990 HERNIA REPAIR WITH MESH PACEMAKER DR. TREVIZO 11/2017 LIVER AND PANCREAS BIOPSY 05/2019 Family History I personally reviewed family history and found not pertinent Social History * Smoker: former Smoker Alcohol: Denies Drugs: denies A-FIB/CHADSVASC A-FIB History Current/History of A-Fib/PAF?: No Current PO Anticoag Therapy: No Review of Systems Constitutional: Denies: Chills, Fever Eyes: Denies: Pain, Vision change Skin: Denies: Rash Pulmonary: Reports: Dyspnea Cardiovascular: Reports: Orthopnea, Edema; Denies: Palpitations Gastrointestinal: Denies: Nausea Genitourinary: Denies: Dysuria Hematologic: Denies: Bruising, Bleeding Excessively Endocrine: Denies: Polydipsia, Polyphagia Musculoskeletal: Denies: Neck Pain Neurological: Denies: Weakness, Numbness Psych: Reports: Mood Normal Physical Examination General Exam: Positive: Alert, Cooperative Eye Exam: Positive: PERRLA ENT Exam: Positive: Atraumatic Neck Exam: Positive: Supple, JVD Chest Exam: Positive: Diminished Heart Exam: Positive: Rate Normal Telemetry: Positive: No significant arrhythmia Abdomen Exam: Positive: Normal bowel sounds Extremity Exam: Positive: Clubbing; Negative: Cyanosis Skin Exam: Positive: Nl turgor and temperature Neuro Exam: Positive: Cranial Nerves 3-12 NL, Reflexes 2+ Psych Exam: Positive: Mental status NL Vital Signs Vital Signs Date Time Temp Pulse Resp B/P (MAP) Pulse Ox O2 Delivery O2 Flow Rate FiO2 02/09/20 10:15 97.7 84 18 103/62 (76) 97 Room Air Laboratory Data Labs 24H Laboratory Tests 2 02/09/20 04:07: POC Glucose (Misc Panel) 166H, POC Sodium (Misc Panel) 139, POC Potassium (Misc Panel) 4.2, POC Chloride (Misc Panel) 101, POC Total CO2 (Misc Panel) 25.0, POC Blood Urea Nitrogen (Misc Panel 31H, POC Ionized Calcium (Misc Panel) 4.8, POC Creatinine (Misc Panel) 1.3, POC Hematocrit (Misc Panel) 41.0 02/09/20 04:10: POC Troponin I (Misc) 0.04 02/09/20 04:24: Immature Granulocyte % (Auto) 0.2, Neutrophils (%) (Auto) 74.6H, Lymphocytes (%) (Auto) 15.5L, Monocytes (%) (Auto) 8.6H, Eosinophils (%) (Auto) 0.7, Basophils (%) (Auto) 0.4, Neutrophils # (Auto) 4.1, Lymphocytes # (Auto) 0.9L, Monocytes # (Auto) 0.5, Eosinophils # (Auto) 0.0, Basophils # (Auto) 0.0, Nucleated Red Blood Cells % (auto) 0.0, Prothrombin Time 13.6, Prothromb Time International Ratio 1.07, Total Bilirubin 0.5, Direct Bilirubin 0.3H, Aspartate Amino Transf (AST/SGOT) 89H, Alanine Aminotransferase (ALT/SGPT) 41, Alkaline Phosphatase 356H, [id number]-[id number]-Type Natriuretic Peptide 79980T, Total Protein 6.8, Albumin 2.9L, Albumin/Globulin Ratio 0.7, Lipase 194 CBC/BMP Laboratory Tests 02/09/20 04:24 Assessment/Plan Patient is 84 years old male with past history of 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 Patient stated that for past few days he has been having increased shortness of breath with leg swelling and orthopnea. In ER patient was found to have small to moderate pleural effusion on the chest x-ray, BNP elevat ed to 28,000, troponin 0,04. Patient denied fever, chills, nausea, vomiting, palpitations, diarrhea or dysuria Problems (1) Congestive heart failure (CHF) Status: Acute Problem Text: BNP is significantly elevated, plus JVD, orthopnea Cardiac diet I's and O's Echo Lasix IV (2) Pancreatic cancer Status: Chronic Problem Text: Patient has extremely poor prognosis he had CTs which showed progression of the cancer. Abdomen and pelvis CT on 12/02/2019 showed lobular soft tissue pancreatic body mass increased versus September, and extensive hepatic metastatic disease with likely progression. Oncologist team recommended hospice and palliative care. I talked to his daughter Natalee, she stated that patient denies hospice care. (3) Physical deconditioning Status: Chronic Problem Text: Secondary to advanced malignancy PT/OT Palliative care consult Hospice consult (4) Diabetes Status: Chronic Problem Text: Continue insulin sliding scale Plan / VTE VTE Prophylaxis Ordered?: Yes YAN GALE DO Feb 09, 2020 10:40
[2020-02-09] MEDS ORDERED: GLUCAGON INJ 1MG VIAL SC PRN (10:45)
[2020-02-09] MEDS ORDERED: DEXTROSE 50% 50 ML SYRINGE IV PRN (10:45)
[2020-02-09] MEDS ORDERED: GLUCOSE 4GM CHEW TABLET PO PRN (10:45)
[2020-02-09] MEDS: HumaLOG INSULIN (NovoLOG) PER UNIT SC SCH ×3 (12:00→21:00)
[2020-02-09] MEDS: DOCUSATE SODIUM 100 MG CAP PO SCH ×2 (12:34→21:33)
[2020-02-09] MEDS: allopurinoL 100 MG TAB PO SCH (12:35)
[2020-02-09] MEDS: AMIODARONE 200 MG TAB (PACERONE) PO SCH (12:35)
[2020-02-09] MEDS: SUCRALFATE 1 GM TAB PO SCH ×3 (12:36→21:33)
[2020-02-09] MEDS: FINASTERIDE 5 MG TAB PO SCH (12:37)
[2020-02-09] MEDS: ENOXAPARIN 40MG/0.4ML SYRINGE (J1650 PER 10MG) SC SCH (12:40)
[2020-02-09] MEDS: PARoxetine 10MG TABLET PO SCH (12:55)
[2020-02-09] MEDS: FUROSEMIDE 40MG/4ML VIAL (J1940) IV SCH ×2 (14:00→21:56)
[2020-02-09 16:00] VITALS: BP 114/67
[2020-02-09] MEDS: ACETAMINOPHEN TAB 650MG DOSE (2X325MG) PO PRN ×2 (16:11→21:33)
[2020-02-09] MEDS ORDERED: SLF 3 ML SYR IV PRN (16:15)
[2020-02-09 20:00] VITALS: BP 94/68
[2020-02-09] MEDS: VITAMIN D 1,000 INTERNATIONAL UNITS TABLET PO SCH (21:32)
[2020-02-09] MEDS: FERROUS SULFATE 325MG TAB PO SCH (21:33)
[2020-02-09] MEDS: SLF 3 ML SYR IV SCH (21:33)
[2020-02-10] VITALS: BP 109/62
[2020-02-10 04:00] VITALS: BP 125/75
[2020-02-10] MEDS: ACETAMINOPHEN TAB 650MG DOSE (2X325MG) PO PRN ×2 (04:30→10:27)
[2020-02-10] MEDS: FUROSEMIDE 40MG/4ML VIAL (J1940) IV SCH ×3 (05:51→22:25)
[2020-02-10] MEDS: SLF 3 ML SYR IV SCH ×3 (05:51→22:26)
[2020-02-10 06:03] LABS: HEMATOCRIT 38.3 % (42.0-52.0); HEMOGLOBIN 12.1 g/dl (13.5-17.5); MEAN CORPUSCULAR HEMOGLOBIN 25.5 pg (27.0-33.0); MEAN CORPUSCULAR HGB CONC 31.6 g/dl (32.0-36.5); MEAN CORPUSCULAR VOLUME 80.6 fl (80.0-96.0); PLATELET COUNT, AUTOMATED 142 10^3/uL (150-450); RED BLOOD COUNT 4.75 10^6/uL (4.30-6.10); WHITE BLOOD COUNT 4.3 10^3/uL (4.0-10.0)
[2020-02-10 06:23] LABS: ALBUMIN 2.5 GM/DL (3.2-5.2); BILIRUBIN,TOTAL 0.6 MG/DL (0.2-1.0); CALCIUM LEVEL 8.5 MG/DL (8.8-10.2); CREATININE FOR GFR 1.29 MG/DL (0.70-1.30); GLOMERULAR FILTRATION RATE 56.2 (>35); POTASSIUM SERUM 3.8 MEQ/L (3.5-5.1); TOTAL PROTEIN 6.4 GM/DL (6.4-8.2)
[2020-02-10 08:00] VITALS: BP 114/67
[2020-02-10] MEDS: FINASTERIDE 5 MG TAB PO SCH (08:32)
[2020-02-10] MEDS: ENOXAPARIN 40MG/0.4ML SYRINGE (J1650 PER 10MG) SC SCH (08:32)
[2020-02-10] MEDS: DOCUSATE SODIUM 100 MG CAP PO SCH ×2 (08:33→20:50)
[2020-02-10] MEDS: HumaLOG INSULIN (NovoLOG) PER UNIT SC SCH ×4 (08:33→21:00)
[2020-02-10] MEDS: SUCRALFATE 1 GM TAB PO SCH ×4 (08:33→20:50)
[2020-02-10] MEDS: PARoxetine 10MG TABLET PO SCH (08:33)
[2020-02-10] MEDS: allopurinoL 100 MG TAB PO SCH (08:33)
[2020-02-10] MEDS: AMIODARONE 200 MG TAB (PACERONE) PO SCH (08:34)
[2020-02-10 11:47] VITALS: BP 105/68
--- NOTE | 2020-02-10 14:53 | IPNPDOC ---
Text Note Date of Service The patient was seen on 02/10/20. NOTE Subjective: No any acute events overnight. Patient denies fever, chills, nausea, vomiting, diarrhea or dysuria. Objective: VITAL SIGNS: Please see below. GENERAL: awake, alert, NAD HEENT: NCAT, anicteric sclera, SARAI NECK: supple, no JVD CARDIOVASCULAR EXAMINATION: S1S2, regular rate/rhythm RESPIRATORY EXAMINATION: CTA b/l, no wheezes/rales/rhonchi ABDOMINAL EXAMINATION: positive bowel sounds x 4, NT EXTREMITIES:+2 edema bilaterally SKIN: warm, no rashes. 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 Patient stated that for past few days he has been having increased shortness of breath with leg swelling and orthopnea. In ER patient was found to have small to moderate pleural effusion on the chest x-ray, BNP elevated to 28,000, troponin 0,04. Patient denied fever, chills, nausea, vomiting, palpitations, diarrhea or dysuria Problems (1) Congestive heart failure (CHF) BNP is significantly elevated, plus JVD, orthopnea Cardiac diet I's and O's Echo pending Lasix IV (2) Pancreatic cancer Patient has extremely poor prognosis he had CTs which showed progression of the cancer. Abdomen and pelvis CT on 12/02/2019 showed lobular soft tissue pancreatic body mass increased versus September, and extensive hepatic metastatic disease with likely progression. Oncologist team recommended hospice and palliative care. I talked to his daughter Natalee, she stated that patient denies hospice care. (3) Physical deconditioning Secondary to advanced malignancy PT/OT Palliative care consult Hospice consult (4) Diabetes Continue insulin sliding scale VS,Fishbone, I+O VS, Fishbone, I+O Laboratory Tests 02/10/20 05:43 Vital Signs Date Time Temp Pulse Resp B/P (MAP) Pulse Ox O2 Delivery O2 Flow Rate FiO2 02/10/20 11:47 97.0 85 17 105/68 (80) 96 Room Air l I&O- Last 24 Hours up to 6 AM 7/22/20 06:00 Intake Total 1440 ml Output Total 1350 ml Balance 90 ml YAN GALE DO Feb 10, 2020 14:53
[2020-02-10] MEDS: traMADol 50 MG TAB PO PRN ×2 (16:33→22:35)
[2020-02-10] MEDS: FERROUS SULFATE 325MG TAB PO SCH (20:50)
[2020-02-10] MEDS: VITAMIN D 1,000 INTERNATIONAL UNITS TABLET PO SCH (20:50)
[2020-02-10 22:00] VITALS: BP 108/65
[2020-02-11 06:00] VITALS: BP 102/67
[2020-02-11] MEDS: FUROSEMIDE 40MG/4ML VIAL (J1940) IV SCH (06:17)
[2020-02-11] MEDS: SLF 3 ML SYR IV SCH (06:18)
[2020-02-11] MEDS: AMIODARONE 200 MG TAB (PACERONE) PO SCH (09:29)
[2020-02-11] MEDS: allopurinoL 100 MG TAB PO SCH (09:29)
[2020-02-11] MEDS: DOCUSATE SODIUM 100 MG CAP PO SCH (09:29)
[2020-02-11] MEDS: SUCRALFATE 1 GM TAB PO SCH (09:29)
[2020-02-11] MEDS: ENOXAPARIN 40MG/0.4ML SYRINGE (J1650 PER 10MG) SC SCH (09:30)
[2020-02-11] MEDS: PARoxetine 10MG TABLET PO SCH (09:30)
[2020-02-11] MEDS: FINASTERIDE 5 MG TAB PO SCH (09:30)
[2020-02-11] MEDS: HumaLOG INSULIN (NovoLOG) PER UNIT SC SCH (09:31)
[2020-02-13] MEDS ORDERED: allopurinoL 100 MG TAB ONE (09:24)
[2020-02-13] MEDS ORDERED: AMIODARONE 200 MG TAB (PACERONE) ONE (09:24)
[2020-02-13] MEDS ORDERED: SUCRALFATE 1 GM TAB ONE ×3 (09:24→12:55)
[2020-02-13] MEDS ORDERED: HumaLOG INSULIN (NovoLOG) PER UNIT ONE ×2 (09:24→12:55)
[2020-02-13] MEDS ORDERED: ENOXAPARIN 40MG/0.4ML SYRINGE (J1650 PER 10MG) ONE (09:24)
[2020-02-13] MEDS ORDERED: FUROSEMIDE 40 MG TAB ONE (09:24)
[2020-02-13] MEDS ORDERED: FINASTERIDE 5 MG TAB ONE (09:24)
[2020-02-13] MEDS ORDERED: PARoxetine 10MG TABLET ONE (09:24)
[2020-02-13] MEDS ORDERED: DOCUSATE SODIUM 100 MG CAP ONE ×2 (09:24→09:43)
[2020-02-13] MEDS ORDERED: FUROSEMIDE 40 MG TAB As Ordered ONE ×2 (09:25→17:41)
[2020-02-13] MEDS ORDERED: FERROUS SULFATE 325MG TAB ONE (09:43)
[2020-02-13] MEDS ORDERED: VITAMIN D 1,000 INTERNATIONAL UNITS TABLET ONE (09:43)
[2020-02-13] MEDS ORDERED: traMADol 50 MG TAB ONE (12:39)
[2020-02-13] MEDS ORDERED: ONDANSETRON 4 MG TAB ONE (12:39)
[2020-02-14] MEDS ORDERED: allopurinoL 100 MG TAB ONE (08:27)
[2020-02-14] MEDS ORDERED: FUROSEMIDE 40 MG TAB ONE ×2 (08:27→17:10)
[2020-02-14] MEDS ORDERED: DOCUSATE SODIUM 100 MG CAP ONE ×2 (08:27→21:49)
[2020-02-14] MEDS ORDERED: SUCRALFATE 1 GM TAB ONE ×3 (08:27→21:49)
[2020-02-14] MEDS ORDERED: FINASTERIDE 5 MG TAB ONE (08:27)
[2020-02-14] MEDS ORDERED: ENOXAPARIN 40MG/0.4ML SYRINGE (J1650 PER 10MG) ONE (08:27)
[2020-02-14] MEDS ORDERED: HumaLOG INSULIN (NovoLOG) PER UNIT ONE (08:27)
[2020-02-14] MEDS ORDERED: AMIODARONE 200 MG TAB (PACERONE) ONE (08:27)
[2020-02-14] MEDS ORDERED: PARoxetine 10MG TABLET ONE (08:27)
[2020-02-14] MEDS ORDERED: FUROSEMIDE 40 MG TAB As Ordered ONE ×2 (08:29→17:10)
[2020-02-14] MEDS ORDERED: VITAMIN D 1,000 INTERNATIONAL UNITS TABLET ONE (21:49)
[2020-02-14] MEDS ORDERED: FERROUS SULFATE 325MG TAB ONE (21:49)
[2020-02-15] MEDS ORDERED: SUCRALFATE 1 GM TAB ONE ×4 (06:00→12:59)
[2020-02-15] MEDS ORDERED: FUROSEMIDE 40 MG TAB ONE ×2 (08:40→09:31)
[2020-02-15] MEDS ORDERED: HumaLOG INSULIN (NovoLOG) PER UNIT ONE ×3 (08:40→12:59)
[2020-02-15] MEDS ORDERED: VITAMIN D 1,000 INTERNATIONAL UNITS TABLET ONE ×3 (08:40→12:59)
[2020-02-15] MEDS ORDERED: FINASTERIDE 5 MG TAB ONE (09:31)
[2020-02-15] MEDS ORDERED: PARoxetine 10MG TABLET ONE (09:31)
[2020-02-15] MEDS ORDERED: ENOXAPARIN 40MG/0.4ML SYRINGE (J1650 PER 10MG) ONE (09:31)
[2020-02-15] MEDS ORDERED: allopurinoL 100 MG TAB ONE (09:31)
[2020-02-15] MEDS ORDERED: DOCUSATE SODIUM 100 MG CAP ONE ×2 (09:31→12:59)
[2020-02-15] MEDS ORDERED: AMIODARONE 200 MG TAB (PACERONE) ONE (09:31)
[2020-02-15] MEDS ORDERED: FUROSEMIDE 40 MG TAB As Ordered ONE ×2 (09:33→18:00)
[2020-02-15] MEDS ORDERED: FERROUS SULFATE 325MG TAB ONE (12:59)
[2020-02-16] MEDS ORDERED: HumuLIN R (REGULAR) INSULIN (NovoLIN R) **100U/ML** PER UNIT As Ordered ONE (10:13)
[2020-02-16] MEDS ORDERED: DOCUSATE SODIUM 100 MG CAP ONE ×2 (10:14→20:00)
[2020-02-16] MEDS ORDERED: ENOXAPARIN 40MG/0.4ML SYRINGE (J1650 PER 10MG) ONE (10:14)
[2020-02-16] MEDS ORDERED: PARoxetine 10MG TABLET ONE (10:14)
[2020-02-16] MEDS ORDERED: AMIODARONE 200 MG TAB (PACERONE) ONE (10:14)
[2020-02-16] MEDS ORDERED: allopurinoL 100 MG TAB ONE (10:14)
[2020-02-16] MEDS ORDERED: FUROSEMIDE 40 MG TAB As Ordered ONE ×2 (10:14→18:10)
[2020-02-16] MEDS ORDERED: FINASTERIDE 5 MG TAB ONE (10:14)
[2020-02-16] MEDS ORDERED: SUCRALFATE 1 GM TAB ONE ×4 (10:14→20:00)
[2020-02-16] MEDS ORDERED: HumaLOG INSULIN (NovoLOG) PER UNIT ONE ×3 (10:16→18:10)
[2020-02-16] MEDS ORDERED: VITAMIN D 1,000 INTERNATIONAL UNITS TABLET ONE (20:00)
[2020-02-16] MEDS ORDERED: FERROUS SULFATE 325MG TAB ONE (20:00)
[2020-02-17] MEDS ORDERED: PARoxetine 10MG TABLET ONE (10:38)
[2020-02-17] MEDS ORDERED: HumaLOG INSULIN (NovoLOG) PER UNIT ONE (10:38)
[2020-02-17] MEDS ORDERED: DOCUSATE SODIUM 100 MG CAP ONE ×2 (10:38→22:43)
[2020-02-17] MEDS ORDERED: SUCRALFATE 1 GM TAB ONE ×3 (10:39→22:43)
[2020-02-17] MEDS ORDERED: FINASTERIDE 5 MG TAB ONE (10:39)
[2020-02-17] MEDS ORDERED: ENOXAPARIN 40MG/0.4ML SYRINGE (J1650 PER 10MG) ONE (10:39)
[2020-02-17] MEDS ORDERED: AMIODARONE 200 MG TAB (PACERONE) ONE (10:39)
[2020-02-17] MEDS ORDERED: FUROSEMIDE 40 MG TAB As Ordered ONE ×2 (10:39→17:39)
[2020-02-17] MEDS ORDERED: FUROSEMIDE 40 MG TAB ONE ×2 (10:39→17:39)
[2020-02-17] MEDS ORDERED: allopurinoL 100 MG TAB ONE (10:39)
[2020-02-17] MEDS ORDERED: LACTOBACILLUS ACIDOPHILUS CAP (BACID) As Ordered ONE (12:54)
[2020-02-17] MEDS ORDERED: VITAMIN D 1,000 INTERNATIONAL UNITS TABLET ONE (22:43)
[2020-02-17] MEDS ORDERED: FERROUS SULFATE 325MG TAB ONE (22:43)
[2020-02-18] MEDS ORDERED: SUCRALFATE SUSP 1GM/10ML UD As Ordered ONE (08:53)
[2020-02-18] MEDS ORDERED: ENOXAPARIN 40MG/0.4ML SYRINGE (J1650 PER 10MG) ONE (08:54)
[2020-02-18] MEDS ORDERED: FINASTERIDE 5 MG TAB ONE (08:54)
[2020-02-18] MEDS ORDERED: DOCUSATE SODIUM 100 MG CAP ONE ×2 (08:54→20:18)
[2020-02-18] MEDS ORDERED: PARoxetine 10MG TABLET ONE (08:54)
[2020-02-18] MEDS ORDERED: AMIODARONE 200 MG TAB (PACERONE) ONE (08:54)
[2020-02-18] MEDS ORDERED: allopurinoL 100 MG TAB ONE (08:54)
[2020-02-18] MEDS ORDERED: FUROSEMIDE 40 MG TAB As Ordered ONE (08:56)
[2020-02-18] MEDS ORDERED: HumaLOG INSULIN (NovoLOG) PER UNIT ONE (12:21)
[2020-02-18] MEDS ORDERED: SUCRALFATE 1 GM TAB ONE ×2 (12:21→20:18)
[2020-03-23 10:49] LABS: HEMATOCRIT 39.2 % (42.0-52.0); HEMOGLOBIN 12.4 g/dl (13.5-17.5); MEAN CORPUSCULAR HEMOGLOBIN 26.1 pg (27.0-33.0); MEAN CORPUSCULAR HGB CONC 31.6 g/dl (32.0-36.5); MEAN CORPUSCULAR VOLUME 82.4 fl (80.0-96.0); PLATELET COUNT, AUTOMATED 205 10^3/uL (150-450); RED BLOOD COUNT 4.76 10^6/uL (4.30-6.10); WHITE BLOOD COUNT 4.9 10^3/uL (4.0-10.0)
[2020-03-23 13:39] LABS: HEMATOCRIT 41.7 % (42.0-52.0); HEMOGLOBIN 13.3 g/dl (13.5-17.5); MEAN CORPUSCULAR HEMOGLOBIN 26.3 pg (27.0-33.0); MEAN CORPUSCULAR HGB CONC 31.9 g/dl (32.0-36.5); MEAN CORPUSCULAR VOLUME 82.4 fl (80.0-96.0); PLATELET COUNT, AUTOMATED 213 10^3/uL (150-450); RED BLOOD COUNT 5.06 10^6/uL (4.30-6.10); WHITE BLOOD COUNT 5.6 10^3/uL (4.0-10.0)
[2020-03-29 11:20] LABS: CALCIUM LEVEL 8.7 MG/DL (8.8-10.2); CREATININE FOR GFR 1.71 MG/DL (0.70-1.30); GLOMERULAR FILTRATION RATE 40.6 (>35); MAGNESIUM LEVEL 2.1 MG/DL (1.8-2.4)
[2020-04-03 01:44] LABS: CALCIUM LEVEL 8.7 MG/DL (8.8-10.2); CREATININE FOR GFR 1.66 MG/DL (0.70-1.30)
[2020-05-03 15:54] LABS: HEMATOCRIT 39.4 % (42.0-52.0); HEMOGLOBIN 12.5 g/dl (13.5-17.5); MEAN CORPUSCULAR VOLUME 82.1 fl (80.0-96.0); WHITE BLOOD COUNT 5.1 10^3/uL (4.0-10.0)
[2020-05-03 15:55] LABS: BASO % 0.4 % (0.0-1.0); EOS % 0.6 % (0.0-3.0); LYMPH # 0.8 10^3/uL (1.5-5.0); LYMPH % 16.1 % (24.0-44.0); MEAN CORPUSCULAR HGB CONC 31.7 g/dl (32.0-36.5); MONO # 0.5 10^3/uL (0.0-0.8); MONO % 10.6 % (0.0-5.0); NEUTROPHILS # 3.7 10^3/uL (1.5-8.5); NEUTROPHILS % 71.9 % (36.0-66.0); PLATELET COUNT, AUTOMATED 205 10^3/uL (150-450)
--- NOTE | 2020-05-13 10:55 | DS.PDOC ---
Discharge Summary General Date of Admission Feb 09, 2020 at 10:07 Date of Discharge February 19, 2020 Discharge Summary Addendum to hand-written d/c summary: DC diagnoses: 1. Acute on chronic systolic and diastolic CHF, LVEF 5-10% 2. Metabolic encephalopathy in setting of low cardiac output state DISPO: Discharge Medications Scheduled Allopurinol (Allopurinol) 100 Mg Tablet, 100 MG PO DAILY, (Reported) Amiodarone HCl (Amiodarone HCl) 200 Mg Tablet, 200 MG PO DAILY, (Reported) Cholecalciferol (Vitamin D3) (Vitamin D3) 1,000 Unit Tablet, 2,000 UNITS PO QPM, (Reported) Docusate Sodium (Docusate Sodium) 100 Mg Capsule, 100 MG PO BID, (Reported) Ferrous Sulfate (Ferrous Sulfate) 325 Mg Tablet, 325 MG PO QHS, (Reported) Finasteride (Finasteride) 5 Mg Tablet, 5 MG PO DAILY, (Reported) Furosemide (Furosemide) 20 Mg Tablet, 20 MG PO Q2D, (Reported) Furosemide (Furosemide) 40 Mg Tablet, 40 MG PO Q2D, (Reported) [place]-3 Fatty Acids/Fish Oil ([place] 3 1,000 mg Softgel) 1 Cap Cap, 1,000 MG PO QHS, (Reported) Pantoprazole Sodium (Pantoprazole Sodium) 40 Mg Tablet.dr, 40 MG PO BID, (Reported) Paroxetine (Paroxetine HCl) 10 Mg Tablet, 10 MG PO DAILY, (Reported) Sucralfate (Sucralfate) 1 Gm Tablet, 1 GRAM PO ACHS, (Reported) Allergies Coded Allergies: hydrocodone (Verified Adverse Reaction, Intermediate, nausea/vomiting/dizzy, 12/02/19) sulfamethoxazole (Verified Adverse Reaction, Mild, nausea, 12/02/19) trimethoprim (Verified Adverse Reaction, Mild, nausea, 12/02/19) BETTY KAUFMAN MD May 13, 2020 10:55
== END 2020-02-19 08:00 | disposition expired | DRG 291 ==
LOC: M ED 03:50 → M ED INP 10:07 → ENRESERV 15:07 → M PCU 15:54 → M MSPAV 02-10 09:03
PROVIDERS: ADMIT Internal Medicine; ATTEND Internal Medicine
DX: I11.0 Hypertensive heart disease with heart failure (principal); G93.41 Metabolic encephalopathy; C78.7 Secondary malignant neoplasm of liver and intrahepatic bile duct; C25.9 Malignant neoplasm of pancreas, unspecified; I48.92 Unspecified atrial flutter; J90 Pleural effusion, not elsewhere classified; I50.43 Acute on chronic combined systolic (congestive) and diastolic (congestive) heart failure; Z51.5 Encounter for palliative care; Z66 Do not resuscitate; H04.123 Dry eye syndrome of bilateral lacrimal glands; E11.40 Type 2 diabetes mellitus with diabetic neuropathy, unspecified; F32.9 Major depressive disorder, single episode, unspecified; N40.0 Benign prostatic hyperplasia without lower urinary tract symptoms; F41.9 Anxiety disorder, unspecified; H81.10 Benign paroxysmal vertigo, unspecified ear; G47.33 Obstructive sleep apnea (adult) (pediatric); H91.91 Unspecified hearing loss, right ear; Z96.653 Presence of artificial knee joint, bilateral; Z95.0 Presence of cardiac pacemaker; Z90.49 Acquired absence of other specified parts of digestive tract; Z79.899 Other long term (current) drug therapy; Z88.2 Allergy status to sulfonamides; Z88.5 Allergy status to narcotic agent; Z88.8 Allergy status to other drugs, medicaments and biological substances